=== PATIENT | male | born 1940 | race Hispanic/Latino ===

== ENCOUNTER 2018-01-17 02:06 | Observation (INO) | payer OTHER ==
[2018-01-17] MEDS ORDERED: NA CHLORIDE 0.9% 1,000 ML ONE (03:16)
[2018-01-17] MEDS ORDERED: ONDANSETRON 4 MG/2 ML VIAL ONE (03:31)
[2018-01-17] MEDS ORDERED: FENTANYL CITR 100 MCG/2 ML ONE (03:33)
[2018-01-17 03:36] LABS: Absolute Lymphocytes (CBC) 0.8 K/uL (0.7-4.9); Absolute Monocytes 0.7 K/uL (0.1-1.3); Absolute Neutrophil 5.2 K/uL (1.8-8.0); Basophils % 0.8 % (0-1.3); Eosinophils % 3.4 % (0-4.4); Hematocrit 31.4 % (39.6-49.0); Lymphocytes % 11.9 % (15.3-44.8); MCH 29.5 pg (27.0-35.0); MPV 9.7 fL (7.6-11.3); Monocytes % 10.1 % (3.3-12.3); RBC Red Blood Cell Count 3.53 M/uL (4.33-5.43)
[2018-01-17 03:39] LABS: Protime INR 1.12
[2018-01-17 03:47] LABS: Bicarbonate 20 mEq/L (21-31); Glucose Level 152 mg/dL (65-120); Potassium 4.6 mEq/L (3.6-5.0); Sodium Level 137 mEq/L (135-145)
[2018-01-17 03:53] LABS: ALT/SGPT 23 IU/L (10-60); AST/SGOT 19 IU/L (10-42); Albumin 3.1 g/dL (3.2-5.5); Alkaline Phosphatase 86 IU/L (42-121); BUN Blood Urea Nitrogen 59 mg/dL (6-20); Bilirubin Direct < 0.1 mg/dL (0-0.2); Bilirubin Total 0.5 mg/dL (0.3-1.2); Creatine Phosphokinase 183 IU/L (22-269); Magnesium 1.8 mg/dL (1.8-2.5); Protein, Total 6.6 g/dL (6.0-8.3)
[2018-01-17 03:55] LABS: CKMB Creatine Kinase MB 6.3 ng/ml (0.3-4.0)
--- NOTE | 2018-01-17 04:39 | ER ---
Nurse's Notes [facility] Name: Jonathan Agudelo Age: 77 yrs Sex: Male : 1940 Arrival Date: 01/17/2018 Time: 02:09 Bed 19 Private MD: Vivian Moody H Diagnosis: Essential (primary) hypertension;Headache;Unspecified kidney failure;Strain of muscle, fascia and tendon at neck level;Pleural effusion in conditions classified elsewhere-bilateral Presentation: 01/17 02:45 Presenting complaint: Patient states: "The back of my neck has been hurting me since bs1 yesterday afternoon, it hurts when I turn my head to the side." Patient denies any trauma or falling. Transition of care: patient was not received from another setting of care. Onset of symptoms was January 16, 2018. Initial Sepsis Screen: Does the patient meet any 2 criteria? No. Patient's initial sepsis screen is negative. Does the patient have a suspected source of infection? No. Patient's initial sepsis screen is negative. Care prior to arrival: None. 02:45 Method Of Arrival: Ambulatory bs1 02:45 Acuity: AAMIR 3 bs1 Historical: - Allergies: 02:49 No Known Allergies; bs1 - Home Meds: 02:49 glimepiride Oral [Active]; Lisinopril Oral [Active]; bs1 - PMHx: 02:49 htn; bs1 - PSHx: 02:49 prostate sx; bs1 - Immunization history:: Adult Immunizations up to date. - Social history:: Smoking status: Patient/guardian denies using tobacco. - Family history:: not pertinent. Screenin:52 Abuse screen: Denies threats or abuse. Denies injuries from another. Nutritional bs1 screening: No deficits noted. Tuberculosis screening: No symptoms or risk factors identified. Fall Risk None identified. Assessment: 02:53 General: Appears in no apparent distress. uncomfortable, Behavior is calm, cooperative, bs1 appropriate for age. Pain: Complains of pain in right base of the skull and right occipital area and left base of the skull and left occipital area. Neuro: Level of Consciousness is awake, alert, obeys commands, Oriented to person, place, time, situation, Appropriate for age. Neuro: Reports blurred vision dizziness, weakness patient denies any trauma, or falling. Cardiovascular: Denies chest pain, Heart tones S1 S2 present Capillary refill < 3 seconds Patient's skin is warm and dry. Respiratory: Reports shortness of breath at rest on exertion Airway is patent Trachea midline Respiratory effort is even, unlabored, Respiratory pattern is regular, symmetrical. GI: No deficits noted. No signs and/or symptoms were reported involving the gastrointestinal system. : No deficits noted. No signs and/or symptoms were reported regarding the genitourinary system. EENT: No deficits noted. No signs and/or symptoms were reported regarding the EENT system. Derm: Skin is intact, Skin is pink, warm \\T\\ dry. Musculoskeletal: Circulation, motion, and sensation intact. Capillary refill < 3 seconds, Range of motion: intact in all extremities. 04:00 Reassessment: Patient appears in no apparent distress at this time. Patient and/or lp1 family updated on plan of care and expected duration. Pain level reassessed. Patient states symptoms have improved. Vital Signs: 02:45 BP 182 / 85; Pulse 78; Resp 16; Temp 97.9(O); Pulse Ox 98% on R/A; Weight 63.5 kg; bs1 Height 5 ft. 1 in. (154.94 cm); Pain 8/10; 03:30 BP 179 / 90; Pulse 77; Resp 14; Pulse Ox 95% on R/A; lp1 04:30 BP 196 / 86; Pulse 89; Resp 14; Pulse Ox 98% on R/A; lp1 05:26 BP 169 / 82; Pulse 81; Resp 17; Pulse Ox 97% on R/A; lp1 02:45 Body Mass Index 26.45 (63.50 kg, 154.94 cm) bs1 ED Course: 02:09 Patient arrived in ED. am2 02:09 Vivian Moody DO is Private Physician. am2 02:24 Zahira Hernandez, RAHUL is Primary Nurse. lp1 02:26 Luis Antonio Barrientos MD is Attending Physician. john 02:47 Triage completed. bs1 02:53 Arm band placed on placed. bs1 02:53 Patient has correct armband on for positive identification. Bed in low position. Call bs1 light in reach. Side rails up X 1. Pulse ox on. NIBP on. 03:00 EKG done, by ED staff, reviewed by Luis Antonio Barrientos MD. lp1 03:00 Inserted saline lock: 20 gauge in right forearm, using aseptic technique. Blood lp1 collected. 03:02 X-ray completed. Portable x-ray completed in exam room. Patient tolerated procedure kw well. 03:03 XRAY Chest (1 view) In Process Unspecified. EDMS 04:[address] via wheelchair. lp1 04:24 CT Head C Spine In Process Unspecified. EDMS 04:38 Kristin Malik MD is Hospitalizing Provider. john 05:22 No provider procedures requiring assistance completed. Patient admitted, IV remains in lp1 place. Administered Medications: Discontinued: NS 0.9% 1000 ml IV at 100 ml/hr continuous 03:45 Drug: NS 0.9% 1000 ml Route: IV; Rate: 100 ml/hr; Site: right forearm; lp1 05:25 Follow up: IV Intake: 150ml ; DC'd per MD order lp1 03:45 Drug: fentaNYL (PF) 25 mcg Route: IVP; Site: right forearm; lp1 04:50 Follow up: Response: Pain is decreased lp1 03:45 Drug: Zofran 4 mg Route: IVP; Site: right forearm; lp1 04:50 Follow up: Response: No adverse reaction lp1 04:49 Drug: Norvasc 10 mg Route: PO; lp1 06:05 Follow up: Response: Blood pressure is lowered lp1 06:05 Not Given (patient denies pain): fentaNYL (PF) 25 mcg IVP once lp1 Point of Care Testing: Blood Glucose: 03:48 Blood Glucose: 163 mg/dL; lp1 Ranges: Intake: 05:25 IV: 150ml; Total: 150ml. lp1 Outcome: 04:39 Decision to Hospitalize by Provider. john 05:22 Condition: stable lp1 05:22 Instructed on the need for admit. 05:42 Admitted to Tele accompanied by nurse, via wheelchair, room 407, with chart, Report lp1 called to RAHUL Vásquez 06:06 Patient left the ED. lp1 Signatures: Dispatcher [employer] Luis Antonio Walton MD MD cha Whitley, Kimberlee kw Pena, Laura, RN RN lp1 Alaina Lakhani am2 Sara Alexandra RN RN bs1 Corrections: (The following items were deleted from the chart) 02:52 01:45 BP 182 / 85; Pulse 78bpm; Resp 16bpm; Pulse Ox 98% RA; Temp 97.9F Oral; 63.5 kg; bs1 Height 5 ft. 1 in.; BMI: 26.4; Pain 8/10; bs1
--- NOTE | 2018-01-17 04:40 | EDPHYS ---
Physician Documentation [facility] Name: Jonathan Agudelo Age: 77 yrs Sex: Male : 1940 Arrival Date: 01/17/2018 Time: 02:09 Bed 19 Private MD: Vivian Moody H ED Physician Luis Antonio Barrientos HPI: 01/17 02:39 This 77 yrs old Male presents to ER via Unassigned with complaints of back of john head pain. 02:37 The patient complains of pain to the left occipital area, left base of the skull, right john occipital area and right base of the skull. The patient describes the headache as aching. Onset: The symptoms/episode began/occurred just prior to arrival. Associated signs and symptoms: The patient has no apparent associated signs or symptoms. Severity of symptoms: At its worst the pain was moderate, in the emergency department the pain is unchanged. Headache History: Denies prior headaches. The symptoms are alleviated by nothing. the symptoms are aggravated by nothing. The patient has not experienced similar symptoms in the past. Historical: - Allergies: 02:49 No Known Allergies; bs1 - Home Meds: 02:49 glimepiride Oral [Active]; Lisinopril Oral [Active]; bs1 - PMHx: 02:49 htn; bs1 - PSHx: 02:49 prostate sx; bs1 - Immunization history:: Adult Immunizations up to date. - Social history:: Smoking status: Patient/guardian denies using tobacco. - Family history:: not pertinent. ROS: 02:37 Constitutional: Negative for fever, chills, and weight loss, Eyes: Negative for injury, john pain, redness, and discharge, ENT: Negative for injury, pain, and discharge, Neck: Negative for injury, pain, and swelling, Cardiovascular: Negative for chest pain, palpitations, and edema, Respiratory: Negative for shortness of breath, cough, wheezing, and pleuritic chest pain, Abdomen/GI: Negative for abdominal pain, nausea, vomiting, diarrhea, and constipation, Back: Negative for injury and pain, : Negative for injury, bleeding, discharge, and swelling, MS/Extremity: Negative for injury and deformity, Skin: Negative for injury, rash, and discoloration, Psych: Negative for depression, anxiety, suicide ideation, homicidal ideation, and hallucinations, Allergy/Immunology: Negative for hives, rash, and allergies, Endocrine: Negative for neck swelling, polydipsia, polyuria, polyphagia, and marked weight changes, Hematologic/Lymphatic: Negative for swollen nodes, abnormal bleeding, and unusual bruising. 02:37 Neuro: Positive for headache. Exam: 02:37 Constitutional: This is a well developed, well nourished patient who is awake, alert, john and in no acute distress. Head/Face: Normocephalic, atraumatic. Eyes: Pupils equal round and reactive to light, extra-ocular motions intact. Lids and lashes normal. Conjunctiva and sclera are non-icteric and not injected. Cornea within normal limits. Periorbital areas with no swelling, redness, or edema. ENT: Nares patent. No nasal discharge, no septal abnormalities noted. Tympanic membranes are normal and external auditory canals are clear. Oropharynx with no redness, swelling, or masses, exudates, or evidence of obstruction, uvula midline. Mucous membranes moist. Neck: Trachea midline, no thyromegaly or masses palpated, and no cervical lymphadenopathy. Supple, full range of motion without nuchal rigidity, or vertebral point tenderness. No Meningismus. Chest/axilla: Normal chest wall appearance and motion. Nontender with no deformity. No lesions are appreciated. Cardiovascular: Regular rate and rhythm with a normal S1 and S2. No gallops, murmurs, or rubs. Normal PMI, no JVD. No pulse deficits. Respiratory: Lungs have equal breath sounds bilaterally, clear to auscultation and percussion. No rales, rhonchi or wheezes noted. No increased work of breathing, no retractions or nasal flaring. Abdomen/GI: Soft, non-tender, with normal bowel sounds. No distension or tympany. No guarding or rebound. No evidence of tenderness throughout. Back: No spinal tenderness. No costovertebral tenderness. Full range of motion. Male : Normal genitalia with no discharge or lesions. Skin: Warm, dry with normal turgor. Normal color with no rashes, no lesions, and no evidence of cellulitis. MS/ Extremity: Pulses equal, no cyanosis. Neurovascular intact. Full, normal range of motion. Neuro: Awake and alert, GCS 15, oriented to person, place, time, and situation. Cranial nerves II-XII grossly intact. Motor strength 5/5 in all extremities. Sensory grossly intact. Cerebellar exam normal. Normal gait. Psych: Awake, alert, with orientation to person, place and time. Behavior, mood, and affect are within normal limits. 02:37 Neck: ROM/movement: is normal, no acute changes, Meningeal signs: are not present, Kernig's sign is negative, Brudzinski's sign is negative. Vital Signs: 02:45 BP 182 / 85; Pulse 78; Resp 16; Temp 97.9(O); Pulse Ox 98% on R/A; Weight 63.5 kg; bs1 Height 5 ft. 1 in. (154.94 cm); Pain 8/10; 03:30 BP 179 / 90; Pulse 77; Resp 14; Pulse Ox 95% on R/A; lp1 04:30 BP 196 / 86; Pulse 89; Resp 14; Pulse Ox 98% on R/A; lp1 05:26 BP 169 / 82; Pulse 81; Resp 17; Pulse Ox 97% on R/A; lp1 02:45 Body Mass Index 26.45 (63.50 kg, 154.94 cm) bs1 MDM: 02:26 Patient medically screened. [facility] 02:40 Data reviewed: vital signs, nurses notes, lab test result(s), EKG, radiologic studies, [facility] CT scan, plain films. 01/17 02:36 Order name: Basic Metabolic Panel; Complete Time: 04:30 [facility] 01/17 02:36 Order name: BNP; Complete Time: 04:30 [facility] 01/17 02:36 Order name: CBC with Diff; Complete Time: 04:30 [facility] 01/17 02:36 Order name: Ckmb; Complete Time: 04:30 [facility] 01/17 02:36 Order name: CPK; Complete Time: 04:30 [facility] 01/17 02:36 Order name: LFT's; Complete Time: 04:30 [facility] 01/17 02:36 Order name: Magnesium; Complete Time: 04:30 [facility] 01/17 02:36 Order name: PT-INR; Complete Time: 04:30 [facility] 01/17 02:36 Order name: Ptt, Activated; Complete Time: 04:30 [facility] 01/17 02:36 Order name: Troponin (emerg Dept Use Only); Complete Time: 04:30 [facility] 01/17 02:36 Order name: XRAY Chest (1 view) [facility] 01/17 02:36 Order name: CT Head C Spine [facility] 01/17 05:28 Order name: Urine Dipstick--Ancillary (enter results) [facility] 01/17 05:55 Order name: Urine Dipstick-Ancillary EDMS 01/17 02:36 Order name: EKG; Complete Time: 02:37 [facility] 01/17 02:36 Order name: Cardiac monitoring; Complete Time: 03:45 [facility] 01/17 02:36 Order name: EKG - Nurse/Tech; Complete Time: 03:45 [facility] 01/17 02:36 Order name: IV Saline Lock; Complete Time: 03:45 [facility] 01/17 02:36 Order name: Labs collected and sent; Complete Time: 03:46 [facility] 01/17 02:36 Order name: O2 Per Protocol; Complete Time: 03:46 [facility] 01/17 02:36 Order name: O2 Sat Monitoring; Complete Time: 03:46 [facility] 01/17 02:36 Order name: Urine Dipstick-Ancillary (obtain specimen); Complete Time: 05:20 [facility] 01/17 04:37 Order name: CT Stone Protocol [facility] 01/17 04:42 Order name: CONS Physician Consult EDMS Administered Medications: Discontinued: NS 0.9% 1000 ml IV at 100 ml/hr continuous 03:45 Drug: NS 0.9% 1000 ml Route: IV; Rate: 100 ml/hr; Site: right forearm; lp1 05:25 Follow up: IV Intake: 150ml ; DC'd per MD order lp1 03:45 Drug: fentaNYL (PF) 25 mcg Route: IVP; Site: right forearm; lp1 04:50 Follow up: Response: Pain is decreased lp1 03:45 Drug: Zofran 4 mg Route: IVP; Site: right forearm; lp1 04:50 Follow up: Response: No adverse reaction lp1 04:49 Drug: Norvasc 10 mg Route: PO; lp1 06:05 Follow up: Response: Blood pressure is lowered lp1 06:05 Not Given (patient denies pain): fentaNYL (PF) 25 mcg IVP once lp1 Point of Care Testing: Blood Glucose: 03:48 Blood Glucose: 163 mg/dL; lp1 Ranges: Critical Glucose Levels:Adult <50 mg/dl or >400 mg/dl <40 mg/dl or >180 mg/dl Disposition: 01/17/18 04:39 Hospitalization ordered by Kristin Malik for Observation. Preliminary diagnosis are Essential (primary) hypertension, Headache, Unspecified kidney failure, Strain of muscle, fascia and tendon at neck level, Pleural effusion in conditions classified elsewhere - bilateral. - Bed requested for Telemetry/MedSurg (observation). - Status is Observation. lp1 - Condition is Stable. - Problem is new. - Symptoms have improved. UTI on Admission? No Signatures: Dispatcher [employer] [facility] Luis Antonio Barrientos MD MD cha Pena, Laura, RN RN lp1 Deyanira Agudelo RN RN cg Sara Alexandra RN RN bs1 Corrections: (The following items were deleted from the chart) 04:19 03:09 Head angio ordered. [facility] 04:59 04:39 Hospitalization Ordered by Kristin Malik MD for Observation. Preliminary cg diagnosis is Essential (primary) hypertension; Headache; Unspecified kidney failure; Strain of muscle, fascia and tendon at neck level. Bed requested for Telemetry/MedSurg (observation). Status is Observation. Condition is Stable. Problem is new. Symptoms have improved. UTI on Admission? No. john 05:28 04:59 01/17/2018 04:39 Hospitalization Ordered by Kristin Malik MD for Observation. john Preliminary diagnosis is Essential (primary) hypertension; Headache; Unspecified kidney failure; Strain of muscle, fascia and tendon at neck level. Bed requested for Telemetry/MedSurg (observation). Status is Observation. Condition is Stable. Problem is new. Symptoms have improved. UTI on Admission? No. cg 06:06 05:28 01/17/2018 04:39 Hospitalization Ordered by Kristin Malik MD for Observation. lp1 Preliminary diagnosis is Essential (primary) hypertension; Headache; Unspecified kidney failure; Strain of muscle, fascia and tendon at neck level; Pleural effusion in conditions classified elsewhere - bilateral. Bed requested for Telemetry/MedSurg (observation). Status is Observation. Condition is Stable. Problem is new. Symptoms have improved. UTI on Admission? No. john
[2018-01-17] MEDS ORDERED: AMLODIPINE 5 MG TAB ONE (04:47)
[2018-01-17] MEDS ORDERED: MORPHINE 2 MG/ML SYR IV PRN (04:51)
[2018-01-17] MEDS ORDERED: ONDANSETRON 4 MG/2 ML VIAL IV PRN (04:51)
[2018-01-17 05:55] LABS: Urine Blood 2+ (NEG); Urine Glucose TRACE (NEG); Urine Protein 3+ (NEG); Urine Specific Gravity 1.015 (1.005-1.030); Urine pH 5.5 (5.0-7.0)
[2018-01-17] MEDS: NA CHLORIDE 0.9% 1,000 ML IV SCH ×2 (06:05→18:20)
--- NOTE | 2018-01-17 06:06 | P.HP ---
Certification for Inpatient Patient admitted to: Observation With expected LOS: <2 Midnights Patient will require the following post-hospital care: None Practitioner: I am a practitioner with admitting privileges, knowledge of patient current condition, hospital course, and medical plan of care. Services: Services provided to patient in accordance with Admission requirements found in Title 42 Section 412.3 of the Code of Federal Regulations Patient History Date of Service: 01/17/18 Reason for admission: Headache; acute kidney injury History of Present Illness: Patient is a 77-year-old gentleman who comes into the hospital with a headache. Patient has a history of prostate cancer, and was treated 4 years ago with radiation. He has been doing well since. Patient has a history of diabetes, and he was found to have significantly elevated renal function. Patient was admitted to the hospital for further evaluation. Patient's urine output has been decreased. Patient is clinically doing well but renal function is very poor. Will get Nephrology to evaluate further. Patient will be admitted to the hospital for further evaluation. Allergies No Known Allergies Allergy (Unverified 01/17/18 03:08) Home Medications: Glimepiride 1 tab PO BID 01/17/18 Lisinopril [Prinivil*] 1 tab PO BID 01/17/18 - Past Medical/Surgical History -: HTN, rheumatoid arthritis; APA -: Aortic stenosis -: afib Past Surgical History: Patient denies surgical history - Family History Father Medical History: Lung disease - Social History Smoking Status: Never smoker Alcohol use: No CD- Drugs: No Review of Systems 10-point ROS is otherwise unremarkable Physical Examination - Vital Signs Temperature: 98 F Blood Pressure: 140/80 Pulse: 80 Respirations: 18 Pulse Ox (%): 96 - Physical Exam General: Alert, In no apparent distress, Oriented x3 HEENT: Atraumatic, PERRLA, Mucous membr. moist/pink, EOMI, Sclerae nonicteric Neck: Supple, 2+ carotid pulse no bruit, No LAD, Without JVD or thyroid abnormality Respiratory: Clear to auscultation bilaterally, Normal air movement Cardiovascular: Regular rate/rhythm, Normal S1 S2, No murmurs Gastrointestinal: Normal bowel sounds, Soft and benign, Non-distended, No tenderness Musculoskeletal: No clubbing, No swelling, No tenderness Integumentary: No rashes, No significant lesion Neurological: Normal gait, Normal speech, Normal strength at 5/5 x4 extr, Normal tone, Sensation intact, Cranial nerves 3-12 intact, Normal affect Lymphatics: No axilla or inguinal lymphadenopathy - Studies Laboratory Data (last 24 hrs) 01/17/18 03:10: PT 13.2 H, INR 1.12, APTT 33.8 01/17/18 03:10: WBC 7.0, Hgb 10.4 L, Hct 31.4 L, Plt Count 248 01/17/18 03:10: B-Natriuretic Peptide 1220 H 01/17/18 03:10: Sodium 137, Potassium 4.6, BUN 59 H, Creatinine 3.35 H, Glucose 152 H, Magnesium 1.8, Total Bilirubin 0.5, AST 19, ALT 23, Alkaline Phosphatase 86 Assessment & Plan - Problems (Diagnosis) (1) JANES (acute kidney injury) Current Visit: Yes Status: Acute (2) Headache Current Visit: Yes Status: Acute (3) Proteinuria Current Visit: Yes Status: Acute - Plan Plan: 1. CT of the abdomen is pending to rule out obstructive uropathy; 2. Gentle IV hydration 3. Pain control 4. May need repeat echocardiogram 5. Monitor renal function closely 6. GI and DVT prophylaxis Discharge Plan: Home Plan to discharge in: 48 Hours - Advance Directives Does patient have a Living Will: No Does patient have a Durable POA for Healthcare: No - Code Status/Comfort Care Code Status Assessed: Yes Code Status: Full Code Critical Care: No Time Spent Managing PTS Care (In Minutes): 50
[2018-01-17 06:36] VITALS: BMI 26.4
--- NOTE | 2018-01-17 06:38 | EKG ---
Test Date: 2018-01-17 Test Time: 02:59:32 Cyber Security Architect: JOCELYNN MEASUREMENT RESULTS: Intervals: Rate: 82 AR: 158 QRSD: 140 QT: 422 QTc: 493 [place]: P: 49 AR: 158 QRS: -52 T: 109 INTERPRETIVE STATEMENTS: Normal sinus rhythm Left axis deviation Left bundle branch block Abnormal ECG Compared to ECG 01/10/2008 07:58:26 Left-axis deviation now present Left bundle-branch block now present Left anterior fascicular block no longer present Electronically Signed On 01-17-18 06:37:57 CDT by Clarence Renteria
[2018-01-17] MEDS ORDERED: NA CHLORIDE 0.9% 0 ML ONE (06:45)
[2018-01-17] MEDS ORDERED: Morphine 2 MG/2 ML SYR IV PRN (07:23)
--- NOTE | 2018-01-17 08:08 | RAD REPORT ---
EXAM DESCRIPTION: CT - Stone Protocol - 01/17/2018 5:33 am CLINICAL HISTORY: Flank pain. COMPARISON: 07/06/2013, 11/10/2009 TECHNIQUE: Axial images were obtained without oral or IV contrast. Lack of contrast limits solid org an and vascular assessment. The [id number] spans the entirety of the system partially obscuring uppermost abdomen and lung bases. Coronal reformatted images were obtained and reviewed. All CT scans are performed using dose optimization technique as appropriate and may include automated exposure control or mA/KV adjustment according to patient size. FINDINGS: Small bilateral pleural effusions are present with linear atelectasis in both lung bases, greater on the left. Mild interstitial pulmonary edema is seen in the lung bases. The heart is mildly prominent. Imaged portions of the liver and spleen show no suspicious findings on non-contrast imaging. The panc reas and adrenal glands are normal. No pathologic lymphadenopathy in the abdomen or pelvis. No urinary tract stones or obstructive uropathy. 2 cm left renal cyst noted, unchanged. No bowel obstruction, free air, free fluid or abscess. Normal appendix noted.Small fat containing umb ilical hernia. Lumbar spondylosis is present, mild to moderate in severity. IMPRESSION: No urinary tract stones or obstructive uropathy. Small bilateral pleural effusions with subsegmental atelectasis suspected in both lung bases.
--- NOTE | 2018-01-17 08:09 | RAD REPORT ---
EXAM DESCRIPTION: CT - [id number] - 01/17/2018 5:35 am CLINICAL HISTORY: Trauma, head and neck injury. COMPARISON: None. TECHNIQUE: Axial 5 mm thick images of the head were obtained. Axial 2 mm thick images of the cervical spine were obtained with sagittal and coronal reconstruction images generated and reviewed. All CT scans are performed using dose optimization technique as appropriate and may include automated exposure control or mA/KV adjustment according to patient size. FINDINGS: CT HEAD WITHOUT CONTRAST: No acute hemorrhage, hydrocephalus or extra-axial collection is identified.No areas of brain edema or midline shift. The paranasal sinuses and mastoids are clear.The calvarium is intact. CT CERVICAL SPINE WITHOUT CONTRAST: No fracture or subluxation.Mild lower cervical spondylosis.No prevertebral soft tissues swelling is i dentified. Emphysematous changes noted left lung apex. IMPRESSION: No acute intracranial or cervical spine findings.
--- NOTE | 2018-01-17 08:49 | RAD REPORT ---
EXAM DESCRIPTION: RAD - Chest Single View - 01/17/2018 3:06 am CLINICAL HISTORY: Chest pain. COMPARISON: 12/11/2007 FINDINGS: Portable technique limits examination quality. Mild linear opacities in both lung bases likely representing subsegmental atelectasis. The lungs are mildly emphysematous but clear. The heart is upper limit of normal in size. No displaced fractures. IMPRESSION: Mild subsegmental atelectasis in both lung bases.
--- NOTE | 2018-01-17 11:14 | RAD REPORT ---
EXAM DESCRIPTION: US - Renal Ultrasound-Complete - 01/17/2018 10:45 am CLINICAL HISTORY: Chronic kidney disease. COMPARISON: 01/17/2018 CT FINDINGS: Both kidneys are normal in size, shape and echotexture. The right kidney measures 9.5 x 4.1 x 4.0 cm. No hydronephrosis, focal mass or perinephric fluid. The left kidney measures 10.3 x 6.0 x 4.9 cm. No hydronephrosis, focal mass or perinephric fluid. 2.3 x 2.0 cm cortical renal cyst is present. IMPRESSION: Benign left renal cyst, otherwise negative study.
[2018-01-17 12:09] LABS: UR CREAT 60.8 mg/dL
[2018-01-17 12:11] LABS: Urine Protein/Creatinine Ratio 6.58 (<0.15)
[2018-01-17] MEDS: CARVEDILOL 3.125 MG TAB PO SCH (18:00)
--- NOTE | 2018-01-17 19:06 | CON ---
Date of Consultation: 01/17/2018 Additional Consulting Physician: Dr. Mccloud. Reason For Consultation: Elevated BUN and creatinine, fluid management. 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 The patient not aware about any kidney disease, the patient had prostate h ypertrophy, status post TURP/prostate cancer. The patient, according to the family, came with severe headache with nausea without any vomiting. The patient had poor intake and the patient started havi ng leg swelling with decrease in his urine output. For that reason, he reported to the emergency alley [facility] In the emergency room found to have elevated BUN and creatinine. For that reason, we have been c onsulted. The patient denied taking any nonsteroidal. No recent change in his medication even thoug h the patient being on NILDA inhibitor. The patient denied any previous lab workup for his kidney func tion. The patient denied taking any nonsteroidal. No IV contrast. No antibiotic. Reviewing the record for the patient, the latest lab that we have it back in 2012, at that time, crea tinine 1.1 with GFR of above 60. Currently on this admission, creatinine 3.3 with GFR of 18. The sumaya alvarenga had an elevation in his BNP. Past Medical History: Include: 1.Diabetes since 2004 complicated with neuropathy and retinopathy. 2.Hypertension. 3.CVA. 4.Prostate cancer, status post surgery. Home Medications: Include glimepiride and lisinopril. Past Surgical History: Include prostate surgery. Family History: Positive for hypertension and lung disease. Social History: Denies smoking, denies drinking, denies drug abuse. Review of Systems: Head and Neck: Had headache. GI: Decreased intake. : No polyuria. No dysuria. Has decreased urine output. LANDSCAPE ARCHITECT: Not applicable. Respiratory: No shortness of breath. Cardiovascular: Has leg swelling. Endocrine: No polydipsia. Skin: No rash. Neuro: Has headache. Musculoskeletal: No joint pain. Physical Examination: Vital Signs: When I saw the patient, blood pressure on admission it was 182/85, currently blood pres sure 159/73, pulse of 84 and afebrile. Chest: Clear to auscultation. Heart: S1, S2. Regular. Systolic murmur. Abdomen: Soft and nontender. Extremity: Trace edema. Vascular: No carotid bruit. No renal bruit. Laboratory Data: Sodium 137, potassium 4.6, bicarb 20, chloride 111, BUN 59, creatinine 3.3, GFR of 18, calcium 8.5, magnesium 1.8. BNP 1220. WBC 7, H and H 10.4/31.4, and platelets 248. Urinalysis; +2 blood, protein creatinine of 7. Renal ultrasound has been done today showing 9.5 x 10.3 renal cyst on the left 2.3 single. Current Medications: In the hospital include: 1.Tylenol. 2.Zofran. 3.IV fluids at 75 per hour. Assessment And Plan: 1.Acute kidney injury on chronic kidney disease, mostly progression of disease, nonoliguric, normal volume to the dry side currently. Normal-size kidney with nephrotic range of proteinuria with anemia , disease needs to be ruled out even though that I doubt it is mostly secondary to diabete s. 2.Hypertension uncontrolled. I am going to go ahead and place the patient on Norvasc and carvedilol . We will discontinue NILDA inhibitor given the acute kidney injury or the worsening kidney function. 3.Proteinuria. Nephrotic range of proteinuria. Mostly it is secondary to diabetes but given the un known baseline and the presence of the anemia I am going to go ahead and send for full workup for the patient and we will follow up. I had long discussion with the patient in the presence of the r egarding the etiology of his disease with the help of the well shooter. The patient verbalized underst anding. 4.Headache mostly secondary to uncontrolled hypertension currently blood pressure better controlled. We will follow up. 5.Diabetes as by primary. Thank you, Dr. Mccloud for allowing us to participate in the care of your patient. KASSIE Voice ID: [id number] Report ID: [id number]
[2018-01-18 01:30] VITALS: O2SAT 95
[2018-01-18 04:11] LABS: Absolute Lymphocytes (CBC) 0.8 K/uL (0.7-4.9); Absolute Monocytes 0.6 K/uL (0.1-1.3); Eosinophils % 3.7 % (0-4.4); Hematocrit 27.2 % (39.6-49.0); Lymphocytes % 13.4 % (15.3-44.8); MCV 88.4 fL (80-100); MPV 9.5 fL (7.6-11.3); Monocytes % 11.3 % (3.3-12.3); RBC Red Blood Cell Count 3.08 M/uL (4.33-5.43)
[2018-01-18 05:03] LABS: ALT/SGPT 19 IU/L (10-60); AST/SGOT 14 IU/L (10-42); Albumin 2.8 g/dL (3.2-5.5); Alkaline Phosphatase 69 IU/L (42-121); BUN Blood Urea Nitrogen 53 mg/dL (6-20); Bicarbonate 20 mEq/L (21-31); Bilirubin Total 0.7 mg/dL (0.3-1.2); Ferritin 83.5 ng/ml (23.9-336.2); Glucose Level 101 mg/dL (65-120); Potassium 4.5 mEq/L (3.6-5.0); Protein, Total 5.6 g/dL (6.0-8.3); Sodium Level 142 mEq/L (135-145); Thyroid Stimulating Hormone 1.49 uIU/mL (0.34-5.60); Transferrin 184 mg/dL (180-329)
[2018-01-18 05:04] LABS: Folic Acid, (Folate) > 22.3 ng/ml (>5.21)
[2018-01-18] MEDS: CARVEDILOL 3.125 MG TAB PO SCH (05:20)
[2018-01-18] MEDS ORDERED: AMLODIPINE 10 MG TAB PO SCH (09:00)
[2018-01-18] MEDS: NA CHLORIDE 0.9% 1,000 ML IV SCH (09:27)
[2018-01-18] MEDS: ACETAMINOPHEN 500 MG TAB PO PRN ×2 (09:27)
[2018-01-18] MEDS ORDERED: CARVEDILOL 3.125 MG TAB PO ONE (13:10)
[2018-01-18] MEDS ORDERED: SOD FERRIC GLUC COMPLX/SUCROSE 250 MG in NA CHLORIDE 0.9% 250 ML IV ONE (14:00)
--- NOTE | 2018-01-18 14:07 | PN ---
Date of Progress Note: 01/18/2018 Subjective: The patient was admitted with elevated BUN and creatinine, shortness of breath. Workup show uncontrolled blood pressure. Physical Examination: Vital Signs: When I saw the patient, blood pressure 177/79, pulse of 95, afebrile. Over the night, the patient had good urine output. Chest: Clear to auscultation. Heart: S1, S2. Regular. Abdomen: Soft, nontender. Extremities: No edema. Laboratory Data: H and H 9.2/27.2. Sodium 142, potassium 4.5, bicarb 20, BUN 53, creatinine 3.4, GF R of 18, calcium 8.4, phosphorus 4, TSAT of 27 with ferritin of 83. SPEP still pending. UPEP is sti ll pending. TSH 1.4, PTH 185, protein creatinine of 6. Serology still pending. Renal ultrasound showing normal size kidney 9.5 x 10.3 with left renal cyst 2.3 cm. Medications: Current medications the patient on its include: 1.Norvasc 10. 2.Carvedilol 3.125. 3.Zofran. 4.Morphine. Assessment And Plan: 1.Chronic kidney disease, stage 4, slow progression, with nephrotic range proteinuria and normal siz e kidney mostly secondary to progression of diabetes, nephropathy. Serology still pending. The cruz ent has no uremia, no hyperkalemia. I am going to go ahead and discontinue IV fluid. The patient is going to be cleared from the renal standpoint to discharge planning, follow up in the office in 2-3 weeks with chemistry. 2.Hypertension. I am going to go ahead and increase carvedilol to 6.25. 3.Nephrotic range of proteinuria. Workup pending. We will follow up as outpatient. Mostly seconda ry to diabetes. 4.Iron deficiency anemia. I am going to start the patient on IV iron and we will follow up. 5.Secondary hyperparathyroidism. No need for calcitriol for the time being. Case discussed with Dr Stefani Mccloud, agreed on the plan. KASSIE Voice ID: [id number] Report ID: [id number]
--- NOTE | 2018-01-18 14:15 | P.SSS ---
Patient History Date of Service: 01/18/18 Primary Care Provider: Dr Moody Reason for admission: Headache; acute kidney injury Allergies No Known Allergies Allergy (Unverified 01/17/18 03:08) Home Medications: Glimepiride 1 tab PO BID 01/17/18 Amlodipine [Norvasc*] 10 mg PO DAILY #30 tab 01/18/18 Carvedilol [Coreg] 6.25 mg PO BID #60 tab 01/18/18 - Past Medical/Surgical History Has patient received pneumonia vaccine in the past: Yes Diabetic: No -: HTN, rheumatoid arthritis; APA -: Aortic stenosis -: afib -: prostate surgery - Family History Father -: Lung disease - Social History Smoking Status: Never smoker Alcohol use: No CD- Drugs: No Caffeine use: Yes Place of Residence: Home Review of Systems General: As per HPI Physical Examination - Vital Signs Temperature: 97.2 F Blood Pressure: 177/79 Pulse: 95 Respirations: 20 Pulse Ox (%): 96 - Physical Exam General: Alert, In no apparent distress HEENT: Atraumatic, PERRLA, Mucous membr. moist/pink, EOMI, Sclerae nonicteric Neck: Supple, 2+ carotid pulse no bruit, No LAD, Without JVD or thyroid abnormality Respiratory: Clear to auscultation bilaterally, Normal air movement Cardiovascular: Regular rate/rhythm, Normal S1 S2 Gastrointestinal: Normal bowel sounds, No tenderness Musculoskeletal: No tenderness Integumentary: No rashes Neurological: Normal gait, Normal speech, Normal strength at 5/5 x4 extr, Normal tone, Normal affect Lymphatics: No axilla or inguinal lymphadenopathy - Diagnosis (Problem(s)) (1) JANES (acute kidney injury) Onset Date: 01/17/18 Current Visit: Yes Status: Chronic (2) Proteinuria Onset Date: 01/17/18 Current Visit: Yes Status: Chronic Qualifiers: Proteinuria type: persistent Qualified Code(s): R80.1 - Persistent proteinuria, unspecified Treatment Summary: For all during the hospital stay patient remained stable The patient was initially admitted to the hospital for elevated BUN and creatinine most likely secondary to acute versus chronic kidney injury. Patient was initially kept on IV fluids and nephrology was consulted. Nephrology had serology drawn along with other lab work done here in the hospital. Patient was found to have chronic kidney disease stage 4 due to worsening of diabetes and hypertension. At that point nephrology recommended the patient be discharged home for outpatient follow up. Patient did not have any hyperkalemia for hyperphosphatemia on the lab work. I am work was done which showed iron deficiency anemia and most likely secondary to anemia of chronic disease. Patient received IV iron here in the hospital and then was discharged home under stable condition. Patient was asked to follow up with primary care doctor and nephrology. Patient's lisinopril was discontinued during his hospitalization and patient was started on amlodipine and Coreg here in the hospital. Patient was given prescription for Coreg and amlodipine and then was discharged home under stable condition. - Disposition Disposition: ROUTINE DISCHARGE Condition: GOOD Patient Discharge Instructions: Please f/u with Dr Mesa in 1 week post discharge. New medication. Norvasc and Coreg daily. You are diagnosed with CKD stage 3 and will be needing to f/u with PCP and Dr Ashraf. Diet: Regular Activity: Ad jose elias
[2018-01-18] MEDS ORDERED: CARVEDILOL 6.25 MG TAB PO SCH (18:00)
[2018-01-18 18:18] VITALS: BP 132/61; TEMP 97.4
[2018-01-19] MEDS ORDERED: SOD FERRIC GLUC COMPLX/SUCROSE 250 MG in NA CHLORIDE 0.9% 250 ML IV ONE (12:50)
[2018-01-20 10:29] LABS: P-ANCA Anti-Myeloperoxidase Ab <1.0 AI (<1.0)
[2018-01-20 13:16] LABS: HBsAG Nonreactive (Nonreactive)
[2018-01-20 17:13] LABS: HIV 1/2 Antibody Diff Not indicated.; HIV AG/AB 4TH GEN Non-reactive (Non-reactive)
[2018-01-20 22:01] LABS: Albumin, (SPE) 2.6 g/dL (3.8-4.8); Alpha-1-Globulins 0.4 g/dL (0.2-0.3); Alpha-2-Globulins 0.9 g/dL (0.5-0.9); Gamma Globulins 0.6 g/dL (0.8-1.7); INTERPRETATION REPORT
== END 2018-01-18 17:08 | disposition home or self-care (01) ==
LOC: ER 02:06 → ERHOLD 04:44 → 4TH 05:23
PROVIDERS: ADMIT Hospitalist; ATTEND Hospitalist
DX: N17.9 Acute kidney failure, unspecified (principal); I12.9 Hypertensive chronic kidney disease with stage 1 through stage 4 chronic kidney disease, or unspecified chronic kidney disease; E11.22 Type 2 diabetes mellitus with diabetic chronic kidney disease; N18.4 Chronic kidney disease, stage 4 (severe); N25.81 Secondary hyperparathyroidism of renal origin; D50.9 Iron deficiency anemia, unspecified; R80.9 Proteinuria, unspecified; Z85.46 Personal history of malignant neoplasm of prostate; Z86.73 Personal history of transient ischemic attack (TIA), and cerebral infarction without residual deficits
CPT/HCPCS: 36415 ×2; 70450; 71045; 72125; 74176; 76377; 76770; 80048; 80053; 80076; 81003; 82550; 82553 ×2; 82570; 82607; 82728; 82746; 82962; 83520; 83540; 83735; 83880; 83970; 84100; 84156; 84165; 84443; 84466; 84484; 85025 ×2; 85044; 85610; 85730; 86021 ×2; 86038; 86160 ×2; 86225; 86317; 86704; 86706; 87340; 87389; 93005; 96374; 96375; 99285; G0378 ×2; J2405; J2916; J3010; J7030 ×4; J2270

== ENCOUNTER 2018-01-28 14:52 | Inpatient (IN) | payer OTHER ==
[2018-01-28 15:41] LABS: Absolute Lymphocytes (CBC) 0.6 K/uL (0.7-4.9); Absolute Monocytes 0.6 K/uL (0.1-1.3); Absolute Neutrophil 6.5 K/uL (1.8-8.0); Basophils % 0.8 % (0-1.3); Eosinophils % 2.5 % (0-4.4); Hematocrit 29.9 % (39.6-49.0); Lymphocytes % 7.7 % (15.3-44.8); MCH 29.9 pg (27.0-35.0); MCV 87.8 fL (80-100); MPV 10.1 fL (7.6-11.3); Monocytes % 7.2 % (3.3-12.3); RBC Red Blood Cell Count 3.41 M/uL (4.33-5.43)
[2018-01-28 15:54] LABS: Protime INR 1.11
[2018-01-28 16:02] LABS: Potassium 5.8 mEq/L (3.6-5.0)
[2018-01-28 16:08] LABS: Albumin 3.3 g/dL (3.2-5.5); Bilirubin Direct 0.1 mg/dL (0-0.2); Bilirubin Total 0.6 mg/dL (0.3-1.2); CKMB Creatine Kinase MB 8.9 ng/ml (0.3-4.0); Magnesium 1.7 mg/dL (1.8-2.5); Protein, Total 6.4 g/dL (6.0-8.3)
[2018-01-28 16:20] LABS: Urine Blood 2+ (NEG); Urine Glucose TRACE (NEG); Urine Protein 3+ (NEG); Urine pH 5.5 (5.0-7.0)
[2018-01-28] MEDS ORDERED: INSULIN -REGULAR HUMAN 50 UNIT/0.5 ML ML ONE (16:49)
[2018-01-28] MEDS ORDERED: ALBUTEROL 2.5 MG/3 ML NEB SOL ONE (16:49)
[2018-01-28] MEDS ORDERED: FUROSEMIDE 40 MG/4 ML VIAL ONE ×2 (16:50→17:52)
[2018-01-28] MEDS ORDERED: Magnesium Sulfate 2gm IVPB 2 G/50 ML BAG IV ONE (16:50)
[2018-01-28] MEDS ORDERED: SOD POLYSTYREN SUL 15 GM/60 ML UCUP ONE (16:50)
[2018-01-28] MEDS ORDERED: D50W 25 GM/50 ML SYRINGE IV ONE ×2 (16:50→18:44)
[2018-01-28] MEDS ORDERED: CALCIUM GLUCONATE 1gm/100 ML NS (4.65 mEq/100mL) IV ONE ×2 (17:00)
[2018-01-28] MEDS: ENOXAPARIN 30 MG/0.3 ML SQ SCH (17:00)
[2018-01-28] MEDS ORDERED: ONDANSETRON 4 MG/2 ML VIAL IV PRN (17:07)
[2018-01-28] MEDS ORDERED: ACETAMINOPHEN 500 MG TAB PO PRN (17:07)
--- NOTE | 2018-01-28 17:13 | EDPHYS ---
Physician Documentation [facility] Name: Jonathan Agudelo Age: 77 yrs Sex: Male : 1940 Arrival Date: 01/28/2018 Time: 14:56 Bed 20 Private MD: ED Physician Olivier Mirza HPI: 01/28 15:25 This 77 yrs old Male presents to ER via Wheelchair with complaints of cp Shortness Of Breath, Weakness. 15:25 The patient has shortness of breath with light activity. Onset: The symptoms/episode cp began/occurred 1 week(s) ago. Duration: The symptoms are continuous, and are steadily getting worse. Historical: - Allergies: 15:13 No Known Allergies; la1 - Home Meds: 16:14 amlodipine 10 mg tab 1 tab once daily [Active]; carvedilol 6.25 mg oral tab 1 tab 2 ch times per day [Active]; 17:03 Bentyl 20 mg Oral tab 3 times per day [Active]; Lomotil 2.5-0.025 mg oral tab 4 times aa5 per day for Diarrhea [Active]; glimepiride 4 mg Oral tab BID [Active]; metformin 1,000 mg oral tab 2 times per day [Active]; - PMHx: 15:13 HTN; Diabetes - NIDDM; la1 16:47 Prostate cancer; CVA; Vision problem; aa5 - PSHx: 16:47 Prostate removed; aa5 - Immunization history:: Adult Immunizations up to date. - Social history:: Smoking status: Patient/guardian denies using tobacco. ROS: 15:30 Constitutional: Negative for body aches, chills, fever, poor PO intake. cp 15:30 Eyes: Negative for injury, pain, redness, and discharge. cp 15:30 ENT: Negative for drainage from ear(s), ear pain, sore throat, difficulty swallowing, difficulty handling secretions. 15:30 Cardiovascular: Positive for edema, Negative for chest pain, palpitations. 15:30 Respiratory: Positive for shortness of breath, on exertion. Negative for cough, wheezing. 15:30 Abdomen/GI: Positive for abdominal pain, diarrhea, Negative for vomiting, constipation, anorexia, black/tarry stool, rectal bleeding. 15:30 Back: Negative for pain at rest, pain with movement, radiated pain. 15:30 : Positive for urinary frequency. 15:30 Skin: Negative for cellulitis, diaphoresis, rash. 15:30 Neuro: Positive for general weakness, Negative for altered mental status, dizziness, headache, syncope, near syncope. 15:30 All other systems are negative. Exam: 15:35 ECG was reviewed by the Attending Physician. cp 15:38 Constitutional: The patient appears in no acute distress, alert, awake, cp non-diaphoretic, non-toxic, well developed, well nourished. 15:38 Head/Face: Normocephalic, atraumatic. Eyes: Pupils equal round and reactive to light, cp extra-ocular motions intact. Lids and lashes normal. Conjunctiva and sclera are non-icteric and not injected. Cornea within normal limits. Periorbital areas with no swelling, redness, or edema. ENT: Nares patent. No nasal discharge, no septal abnormalities noted. Tympanic membranes are normal and external auditory canals are clear. Oropharynx with no redness, swelling, or masses, exudates, or evidence of obstruction, uvula midline. Mucous membranes moist. Neck: Trachea midline, no thyromegaly or masses palpated, and no cervical lymphadenopathy. Supple, full range of motion without nuchal rigidity, or vertebral point tenderness. No Meningismus. Chest/axilla: Normal chest wall appearance and motion. Nontender with no deformity. No lesions are appreciated. 15:38 Cardiovascular: Rate: normal, Rhythm: regular, Edema: 2+ edema to level of left midcalf, left ankle, right midcalf and right ankle, JVD: is not appreciated. 15:38 Respiratory: the patient does not display signs of respiratory distress, Respirations: normal, no use of accessory muscles, no retractions, no splinting, no tachypnea, labored breathing, is not present, Breath sounds: decreased breath sounds, that are mild, are located in both bases, wheezing: is not appreciated. 15:38 Abdomen/GI: Inspection: abdomen appears normal, Bowel sounds: active, all quadrants, Palpation: abdomen is soft and non-tender, in all quadrants, rebound tenderness, is not appreciated, voluntary guarding, is not appreciated, involuntary guarding, is not appreciated. 15:38 Back: pain, is absent, ROM is normal. 15:38 Skin: cellulitis, is not appreciated, no rash present. 15:38 Neuro: Orientation: to person, place \T\ time. Mentation: lucid, able to follow commands, Cerebellar function: is grossly normal, Motor: moves all fours, general weakness w/o focal deficits, Sensation: no obvious gross deficits, Gait: is steady. Vital Signs: 15:13 BP 163 / 63; Pulse 69; Resp 19; Temp 98.6(TE); Pulse Ox 96% on R/A; Weight 69.85 kg; la1 15:43 BP 145 / 71; Pulse 65; Resp 22; Pulse Ox 95% on R/A; Pain 0/10; ch 17:05 BP 173 / 66; Pulse 71; Resp 18; Temp 97.8; Pulse Ox 96% on R/A; Pain 0/10; ch 17:24 BP 151 / 60; Pulse 70; Resp 22; Pulse Ox 96% on R/A; Pain 0/10; ch 18:02 BP 144 / 58; Pulse 76; Resp 22; Temp 98.2; Pulse Ox 94% on R/A; Pain 0/10; ch 19:44 BP 158 / 66; Pulse 82; Resp 18; Temp 97.8(O); Pulse Ox 96% on R/A; Pain 0/10; ao MDM: 15:16 Patient medically screened. 16:00 Differential diagnosis: CHF exacerbation, Chronic Obstructive Pulmonary Disease cp Myocardial Infarction pneumonia, Pneumothorax pulmonary edema, Pulmonary Embolism Unstable Angina. 16:24 Physician consultation: Rona Moreno MD was contacted at 16:24, regarding admission, to the telemetry unit. patient's condition, and will see patient in ED, shortly. 16:45 Data reviewed: vital signs, nurses notes, old medical records, lab test result(s), EKG, cp radiologic studies, plain films. 16:45 Test interpretation: by ED physician or midlevel provider: ECG, plain radiologic cp studies. 17:02 Physician consultation: Sherrell Ashraf MD was called at 17:02, was contacted at 17:02, regarding consult, patient's condition, wants patient to be given another 40 lasix IV. 01/28 15:24 Order name: Basic Metabolic Panel; Complete Time: 16:14 01/28 16:14 Interpretation: Abnormal: GLUC 246; K 5.8; CO2 17; BUN 73; CRE 3.73; GFR 16. cp 01/28 15:24 Order name: BNP; Complete Time: 16:43 cp 01/28 16:43 Interpretation: Abnormal: BNP 1635. cp 01/28 15:24 Order name: CBC with Diff; Complete Time: 15:54 cp 01/28 15:54 Interpretation: Normal except: WBC 8.0; RBC 3.41; HGB 10.2; HCT 29.9; NEVAEH% 81.8; LYM% cp 7.7; LYMA 0.6. 01/28 15:24 Order name: Ckmb; Complete Time: 16:14 cp 01/28 16:15 Interpretation: Abnormal: CKMB 8.9. cp 01/28 15:24 Order name: CPK; Complete Time: 16:14 cp 01/28 16:14 Interpretation: Abnormal: CPK 342. cp 01/28 15:24 Order name: LFT's; Complete Time: 16:14 cp 01/28 15:24 Order name: Magnesium; Complete Time: 16:14 cp 01/28 16:14 Interpretation: Abnormal: MG 1.7. cp 01/28 15:24 Order name: PT-INR; Complete Time: 16:14 cp 01/28 16:15 Interpretation: Abnormal: PT 13.1. cp 01/28 15:24 Order name: Ptt, Activated; Complete Time: 16:14 cp 01/28 15:24 Order name: Troponin (emerg Dept Use Only); Complete Time: 16:07 cp 01/28 16:07 Interpretation: TROPED < 0.03; Reviewed. cp 01/28 16:12 Order name: Urine Dipstick--Ancillary (enter results); Complete Time: 16:23 ag 01/28 16:23 Interpretation: Normal except: UBLD 2+; UPROT 3+. cp 01/28 17:14 Order name: Hemoglobin A1C EDMS 01/28 17:14 Order name: CBC with Automated Diff EDMS 01/28 17:14 Order name: CBC with Automated Diff EDMS 01/28 15:24 Order name: XRAY Chest (1 view) cp 01/28 17:14 Order name: Echo with Doppler EDMS 01/28 17:14 Order name: CBC with Automated Diff EDMS 01/28 17:14 Order name: CBC with Automated Diff EDMS 01/28 17:14 Order name: Comprehensive Metabolic Panel EDMS 01/28 17:14 Order name: Comprehensive Metabolic Panel [facility] 01/28 17:14 Order name: Comprehensive Metabolic Panel [facility] 01/28 17:14 Order name: Comprehensive Metabolic Panel [facility] 01/28 17:14 Order name: Potassium [facility] 01/28 20:12 Order name: Glucose, Ancillary Testing [facility] 01/28 15:24 Order name: EKG; Complete Time: 15:25 cp 01/28 15:24 Order name: Cardiac monitoring; Complete Time: 15:42 cp 01/28 15:24 Order name: EKG - Nurse/Tech; Complete Time: 15:42 cp 01/28 15:24 Order name: IV Saline Lock; Complete Time: 15:43 cp 01/28 15:24 Order name: Labs collected and sent; Complete Time: 15:43 cp 01/28 15:24 Order name: O2 Per Protocol; Complete Time: 15:43 cp 01/28 15:24 Order name: O2 Sat Monitoring; Complete Time: 15:43 cp 01/28 15:24 Order name: Urine Dipstick-Ancillary (obtain specimen); Complete Time: 16:10 cp 01/28 17:14 Order name: CONS Physician Consult [facility] 01/28 17:14 Order name: Physical Therapy Consult [facility] 01/28 17:14 Order name: Renal [facility] 01/28 18:44 Order name: Diet Renal; Complete Time: 18:44 cp 01/28 18:54 Order name: Fingerstick Glucose; Complete Time: 18:54 ch EC:35 Rate is 68 beats/min. Rhythm is regular. HI interval is normal. QRS interval is cp prolonged at 144 msec. QT interval is normal. T waves are Inverted in leads I, aVL, aVR, V5, V6. No ST changes noted. Interpreted by me. Reviewed by me. Administered Medications: 16:40 Drug: Albuterol 2.5 mg Route: Inhalation; ch 16:40 Drug: D50W 25 ml Route: IVP; Site: right forearm; ch 17:27 Follow up: Response: No adverse reaction ch 16:40 Drug: Lasix 40 mg Route: IVP; Site: right forearm; ch 17:28 Follow up: Response: No adverse reaction ch 16:45 Drug: Insulin Regular Human 10 units {Co-Signature: rb1 (Juany Heller RN).} Route: ch IVP; Site: right forearm; 17:28 Follow up: Response: No adverse reaction ch 16:46 Drug: Magnesium Sulfate 2 grams Route: IVPB; Infused Over: 2 hrs; Site: right forearm; ch 18:20 Follow up: IV Status: Completed infusion; IV Intake: 100ml ch 17:00 Drug: Albuterol 2.5 mg Route: Inhalation; ch 17:00 Drug: Calcium Gluconate 1 grams Route: IVPB; Infused Over: 60 mins; Site: right forearm;ch 17:49 Follow up: IV Status: Completed infusion; IV Intake: 100ml ch 17:28 Drug: Kayexalate 30 grams Route: PO; ch 17:49 Follow up: Response: No adverse reaction ch 17:30 Drug: Albuterol 2.5 mg Route: Inhalation; ch 17:50 Drug: Lasix 40 mg Route: IVP; Site: right forearm; ch 18:19 Follow up: Response: No adverse reaction; Other; urine output increased, pt has ch urinated 4 times 18:45 Drug: D50W 50 ml Route: IVP; Site: right forearm; ch 20:30 Follow up: Response: Blood sugar is elevated ao Point of Care Testing: Blood Glucose: 18:53 Blood Glucose: 75 mg/dL; ch 20:09 Blood Glucose: 204 mg/dL; eb Ranges: Critical Glucose Levels:Adult <50 mg/dl or >400 mg/dl <40 mg/dl or >180 mg/dl Disposition: 01/28/18 17:12 Hospitalization ordered by Rona Moreno for Inpatient Admission. Preliminary diagnosis are Hyperkalemia, Unspecified kidney failure, Pulmonary edema, Hypomagnesemia. - Bed requested for Telemetry/MedSurg (Inpatient). - Status is Inpatient Admission. ao - Condition is Stable. - Problem is new. - Symptoms have improved. UTI on Admission? No Addendum: 02/02/2018 22:02 Co-signature as Attending Physician, Olivier Mirza MD. g s Signatures: Dispatcher [employer] Gwendolyn Devlin RN Alicia Alvarado ch, ms, Audri, RN RN aa5 Jonathan Simmons RN RN la1 Luis Antonio Egan PA PA cp Ortiz, Alex, RN RN ao Starr, Gregory, MD MD Juany Heller RN rb1 Corrections: (The following items were deleted from the chart) 01/28 16:07 16:02 Abnormal: GLUC 246. cp cp 16:14 16:07 Abnormal: GLUC 246; K 5.8; CO2 17. cp cp 16:16 15:54 Head Brain Wo Cont+CT.RAD.BRZ ordered. EDMS EDMS 16:47 16:14 PSHx: prostate sx; ch aa5 17:15 17:12 Hospitalization Ordered by Rona Moreno MD for Inpatient Admission. Preliminary cp diagnosis is Hyperkalemia; Unspecified kidney failure. Bed requested for Telemetry/MedSurg (Inpatient). Status is Inpatient Admission. Condition is Stable. Problem is new. Symptoms have improved. UTI on Admission? No. cp 18:32 17:15 01/28/2018 17:12 Hospitalization Ordered by Rona Moreno MD for Inpatient ms Admission. Preliminary diagnosis is Hyperkalemia; Unspecified kidney failure; Pulmonary edema; Hypomagnesemia. Bed requested for Telemetry/MedSurg (Inpatient). Status is Inpatient Admission. Condition is Stable. Problem is new. Symptoms have improved. UTI on Admission? No. cp 20:33 18:32 01/28/2018 17:12 Hospitalization Ordered by Rona Moreno MD for Inpatient ao Admission. Preliminary diagnosis is Hyperkalemia; Unspecified kidney failure; Pulmonary edema; Hypomagnesemia. Bed requested for Telemetry/MedSurg (Inpatient). Status is Inpatient Admission. Condition is Stable. Problem is new. Symptoms have improved. UTI on Admission? No. ms
--- NOTE | 2018-01-28 17:13 | ER ---
Nurse's Notes [facility] Name: Jonathan Agudelo Age: 77 yrs Sex: Male : 1940 Arrival Date: 01/28/2018 Time: 14:56 Bed 20 Private MD: Diagnosis: Hyperkalemia;Unspecified kidney failure;Pulmonary edema;Hypomagnesemia Presentation: 01/28 15:13 Presenting complaint: Patient states: I have been feeling fatigued, SOB, and had la1 swelling in my lower legs. Transition of care: patient was not received from another setting of care. Onset of symptoms was January 28, 2018. Initial Sepsis Screen: Does the patient meet any 2 criteria? No. Patient's initial sepsis screen is negative. Does the patient have a suspected source of infection? No. Patient's initial sepsis screen is negative. Care prior to arrival: None. 15:13 Method Of Arrival: Wheelchair la1 15:13 Acuity: AAMIR 3 la1 Triage Assessment: 20:32 Respiratory: Onset: The symptoms/episode began/occurred the patient has moderate ao shortness of breath. Respiratory: Airway is patent Respiratory effort is even, unlabored, Respiratory pattern is regular, symmetrical. Historical: - Allergies: 15:13 No Known Allergies; la1 - Home Meds: 16:14 amlodipine 10 mg tab 1 tab once daily [Active]; carvedilol 6.25 mg oral tab 1 tab 2 ch times per day [Active]; 17:03 Bentyl 20 mg Oral tab 3 times per day [Active]; Lomotil 2.5-0.025 mg oral tab 4 times aa5 per day for Diarrhea [Active]; glimepiride 4 mg Oral tab BID [Active]; metformin 1,000 mg oral tab 2 times per day [Active]; - PMHx: 15:13 HTN; Diabetes - NIDDM; la1 16:47 Prostate cancer; CVA; Vision problem; aa5 - PSHx: 16:47 Prostate removed; aa5 - Immunization history:: Adult Immunizations up to date. - Social history:: Smoking status: Patient/guardian denies using tobacco. Screenin:09 Abuse screen: Denies threats or abuse. Denies injuries from another. Nutritional ch screening: No deficits noted. Tuberculosis screening: No symptoms or risk factors identified. Fall Risk None identified. Assessment: 15:43 Pain: Denies pain. Neuro: No deficits noted. Level of Consciousness is awake, alert, obeys commands. Cardiovascular: Reports shortness of breath, Heart tones S1 S2 present Capillary refill < 3 seconds in bilateral fingers toes Clubbing of nail beds is absent Patient's skin is warm and dry. Pulses are all present. Edema is 2+ to left midcalf, left ankle, left foot, right midcalf, right ankle and right foot pitting to left leg and right leg Rhythm is sinus rhythm Chest pain is denied. Respiratory: Reports shortness of breath at rest on exertion Airway is patent Trachea midline Respiratory effort is even, unlabored, Breath sounds are diminished bilaterally. GI: Reports bloating, gaseousness, nausea, frequency of bowel movement, soft but not diarrhea. : No signs and/or symptoms were reported regarding the genitourinary system. Derm: Skin is intact, Skin is pink, warm \T\ dry. Musculoskeletal: Reports weakness in right arm, left arm, right leg and left leg. 16:09 Reassessment: Patient appears in no apparent distress at this time. No changes from previously documented assessment. Patient and/or family updated on plan of care and expected duration. Pain level reassessed. urine collected via clean catch. 17:42 Reassessment: Patient appears in no apparent distress at this time. Patient and/or family updated on plan of care and expected duration. Pain level reassessed. Patient is alert, oriented x 3, equal unlabored respirations, skin warm/dry/pink. Patient states feeling better. Patient states symptoms have improved. 18:53 Reassessment: Patient appears in no apparent distress at this time. pt is sleeping in room, very drowsy. pt bgl checked, bgl is 75. Luis Antonio notified, new orders recieved. 19:43 General: Appears in no apparent distress. comfortable, Behavior is calm, cooperative, ao appropriate for age. Pain: Denies pain. Neuro: Level of Consciousness is awake, alert, obeys commands, Oriented to person, place, time, situation, Appropriate for age Moves all extremities. Speech is normal, Facial symmetry appears normal. Cardiovascular: Capillary refill < 3 seconds in bilateral fingers toes Patient's skin is warm and dry. Respiratory: Airway is patent Respiratory effort is even, unlabored, Respiratory pattern is regular, symmetrical. GI: Abdomen is non-distended. : No signs and/or symptoms were reported regarding the genitourinary system. EENT: No signs and/or symptoms were reported regarding the EENT system. Derm: Skin is intact, Skin is pink, warm \T\ dry. Skin temperature is warm. Musculoskeletal: Circulation, motion, and sensation intact. Range of motion: intact in all extremities, Patient ambulating to the bathroom. Vital Signs: 15:13 BP 163 / 63; Pulse 69; Resp 19; Temp 98.6(TE); Pulse Ox 96% on R/A; Weight 69.85 kg; la1 15:43 BP 145 / 71; Pulse 65; Resp 22; Pulse Ox 95% on R/A; Pain 0/10; ch 17:05 BP 173 / 66; Pulse 71; Resp 18; Temp 97.8; Pulse Ox 96% on R/A; Pain 0/10; ch 17:24 BP 151 / 60; Pulse 70; Resp 22; Pulse Ox 96% on R/A; Pain 0/10; ch 18:02 BP 144 / 58; Pulse 76; Resp 22; Temp 98.2; Pulse Ox 94% on R/A; Pain 0/10; ch 19:44 BP 158 / 66; Pulse 82; Resp 18; Temp 97.8(O); Pulse Ox 96% on R/A; Pain 0/10; ao ED Course: 14:56 Patient arrived in ED. sb2 15:13 Triage completed. la1 15:14 Arm band placed on left wrist. la1 15:15 Luis Antonio Egan PA is PHCP. cp 15:15 Olivier Mirza MD is Attending Physician. cp 15:47 Inserted saline lock: 18 gauge in right forearm, using aseptic technique. Blood ch collected. 15:59 X-ray completed. Portable x-ray completed in exam room. Patient tolerated procedure la2 well. 16:02 XRAY Chest (1 view) In Process Unspecified. EDMS 16:03 Gwendolyn Rodriguez, RAHUL is Primary Nurse. ch 16:04 Notified Nurse Practitioner and/or Physician Composition Instructor of a critical lab result(s), la1 k-[id number]. 16:09 No apparent distress. Resting quietly. ch 16:09 Patient has correct armband on for positive identification. Placed in gown. Bed in low ch position. Call light in reach. Side rails up X2. Adult w/ patient. color television console monitor on. Pulse ox on. NIBP on. Warm blanket given. 16:09 No provider procedures requiring assistance completed. ch 17:11 Rona Moreno MD is Hospitalizing Provider. cp 17:24 Patient admitted, IV remains in place. ch Administered Medications: 16:40 Drug: Albuterol 2.5 mg Route: Inhalation; ch 16:40 Drug: D50W 25 ml Route: IVP; Site: right forearm; ch 17:27 Follow up: Response: No adverse reaction ch 16:40 Drug: Lasix 40 mg Route: IVP; Site: right forearm; ch 17:28 Follow up: Response: No adverse reaction ch 16:45 Drug: Insulin Regular Human 10 units {Co-Signature: rb1 (Juany Heller RN).} Route: ch IVP; Site: right forearm; 17:28 Follow up: Response: No adverse reaction ch 16:46 Drug: Magnesium Sulfate 2 grams Route: IVPB; Infused Over: 2 hrs; Site: right forearm; ch 18:20 Follow up: IV Status: Completed infusion; IV Intake: 100ml ch 17:00 Drug: Albuterol 2.5 mg Route: Inhalation; ch 17:00 Drug: Calcium Gluconate 1 grams Route: IVPB; Infused Over: 60 mins; Site: right forearm;ch 17:49 Follow up: IV Status: Completed infusion; IV Intake: 100ml ch 17:28 Drug: Kayexalate 30 grams Route: PO; ch 17:49 Follow up: Response: No adverse reaction ch 17:30 Drug: Albuterol 2.5 mg Route: Inhalation; ch 17:50 Drug: Lasix 40 mg Route: IVP; Site: right forearm; ch 18:19 Follow up: Response: No adverse reaction; Other; urine output increased, pt has ch urinated 4 times 18:45 Drug: D50W 50 ml Route: IVP; Site: right forearm; ch 20:30 Follow up: Response: Blood sugar is elevated ao Point of Care Testing: Blood Glucose: 18:53 Blood Glucose: 75 mg/dL; ch 20:09 Blood Glucose: 204 mg/dL; eb Ranges: Intake: 17:49 IV: 100ml; Total: 100ml. ch 18:20 IV: 100ml; Total: 200ml. ch Outcome: 17:12 Decision to Hospitalize by Provider. cp 20:31 Admitted to Tele accompanied by tech, room 415, with chart, Report called to RAHUL Fung ao 20:31 Condition: stable 20:31 Instructed on the need for admit. 20:33 Patient left the ED. ao Signatures: Dispatcher [employer] EDMS Gwendolny Rodriguez RN RN ch Calderon, Audri, RN RN aa5 Jonathan Simmons RN RN la1 Luis Antonio Egan PA PA cp Ortiz, Alex RN RN ao Carey Jones la2 Ilda Romano2 Brittayn Dos Santos RN rb1 Corrections: (The following items were deleted from the chart) 15:47 15:43 Cardiovascular: Reports shortness of breath, Heart tones S1 S2 present Capillary ch refill < 3 seconds in bilateral fingers toes Clubbing of nail beds is absent Patient's skin is warm and dry. Pulses are all present. Edema is absent. Rhythm is sinus rhythm Chest pain is denied 16:47 16:14 PSHx: prostate sx; ch aa5
[2018-01-28] MEDS ORDERED: D50W 25 GM/50 ML SYRINGE IV PRN (17:24)
[2018-01-28] MEDS ORDERED: GLUCAGON 1 MG/VIAL IM PRN (17:24)
--- NOTE | 2018-01-28 17:58 | HP ---
Date of Admission: 01/28/2018 Chief Complaint: Generalized weakness. Primary Care Physician: Vivian Moody DO. Consultants: Dr. Sherrell Ashraf M.D. with Nephrology. Code Status: Full. No medical power of managing attorney or living well. History Of Present Illness: The patient is a 77-year-old male with past medical history of chronic k idney disease stage 4, hypertension, hyperlipidemia, rheumatoid arthritis, aortic stenosis, atrial fi brillation, history of prostate cancer, who has been in and out of the hospital multiple times over t he past month for electrolyte abnormalities and elevated kidney function. The patient was recently d iagnosed with stage 4 kidney disease, has been seeing Dr. Ashraf as an outpatient. The patient sta thai that he has been having some generalized weakness, shortness of breath, and inability to walk as far as he usually can. Denies any cough, fever, chills known. The patient does report some nausea, but no vomiting. No chest pain. The patient does report some swelling of his lower extremities. Hi s symptoms are constant, moderate, progressively worsening in the ER, his vital signs were stable. H e was afebrile. He was saturating 96% on room air. His workup revealed elevated BNP level of 1635. His potassium was elevated at 5.2 and creatinine was 3.73. The last creatinine was 3.35, earlier th is month. The patient was treated with calcium, Kayexalate, and was referred for admission. He also received albuterol and insulin. His chest x-ray showed volume overload. Forty of IV Lasix was give n. When the patient was seen in the ER, he was awake, alert, oriented x3, in some mild distress. Past Medical History: Chronic kidney disease stage 4, hypertension, diabetes, non-insulin requiring rheumatoid arthritis, aortic stenosis, atrial fibrillation paroxysmal, and history of prostate cancer treated with radiation 4 years ago. Past Surgical History: None. Allergies: NO KNOWN DRUG ALLERGIES. Medications: List reviewed. Social History: The patient is and has never smoked or does not drink alcohol. No illicit d rug use. Family History: Father had lung disease. Review of Systems: An 11-point system reviewed, negative except as per HPI. Physical Examination: Vital Signs: Blood pressure 163/63, pulse 69, respirations 19, temperature 98.6, pulse ox 96% on alley m air. General: Awake, alert, oriented x3. Elderly male, somewhat ill-appearing, frail. HEENT: Normocephalic, atraumatic. PERRLA. EOMI. Moist mucous membranes. Oropharynx is clear. Co njunctiva is anicteric. Neck: Supple. Trachea midline. CV: S1, S2. Peripheral pulses present. Systolic murmur heard. Respiratory: Diminished breath sounds. Some crackles are heard. No wheezing or stridor. No use of accessory muscles. Gastrointestinal: Abdomen is soft, nontender, nondistended. Positive bowel sounds. No guarding or rigidity. No palpable masses. No thyromegaly. Extremities: No clubbing, cyanosis, 2+ edema bilateral lower extremities. No calf tenderness. Neuro: Cranial nerves 2 through 12 intact grossly. No focal neurological deficit. Speech is normal . Strength is 5/5 bilateral upper and lower extremities. Sensation intact to light touch. Skin: No rashes. Normal skin turgor. Psych: Mood is okay. Affect is full. Insight and judgment are good. Laboratory Data: Sodium 135, potassium 5.8, chloride 111, CO2 of 17, BUN 73, creatinine 3.73, glucos e 246, calcium 8.6, magnesium 1.6. CK 342, troponin less than 0.03. BNP 1635, albumin 3.3, INR 1.11 . UA; 2+ blood, negative nitrite, negative leukocyte, 3+ protein. WBC 8, H and H are 10.2 and 29.9, platelets 250, neutrophils 81%. Chest x-ray, no official report, however, shows volume overload pat tern. Assessment And Plan: A 77-year-old male with: 1.Ptwhy-st-orewwkf kidney injury. We will challenge with some diuretics. We will consult Dr. Igor dowling, the patient's recreational therapy aide. We will monitor creatinine. Avoid NSAIDs and nephrotoxins. 2.Pulmonary edema, likely secondary to bsvsp-to-tedxbpy kidney injury. We will obtain echocardiogra m to evaluate ejection fraction. No echocardiogram present on records. We will start on beta blocke r. Resume his Coreg dose. We will hold NILDA inhibitor at this time due to elevated creatinine. Cont inue with mild diuresis. Daily weights, fluid restriction. Strict Is and Os. 3.Essential hypertension, stable. We will resume home medications. 4.Diabetes mellitus type 2. We will place on sliding-scale insulin and monitor blood glucose levels . We will obtain hemoglobin A1c. 5.Anemia of chronic disease secondary to chronic kidney disease. Monitor H and H, currently stable. 6.Hyperkalemia. The patient has been treated with insulin, dextrose, albuterol, calcium. The patie nt has received Kayexalate and will repeat level 2 hours post. 7.Hypomagnesemia. We will replace and monitor. 8.History of prostate cancer. Treated with radiation therapy. 9.Rheumatoid arthritis. 10.Aortic stenosis. 11.Atrial fibrillation, paroxysmal, not on anticoagulation. 12.Gastrointestinal and deep venous thrombosis prophylaxis with proton-pump inhibitor and Lovenox re alxe dosed. Plan: Admit the patient to Med-Surg, place as inpatient. ROSITA Voice ID: [id number]
--- NOTE | 2018-01-28 18:29 | RAD REPORT ---
EXAM DESCRIPTION: RAD - Chest Single View - 01/28/2018 4:02 pm CLINICAL HISTORY: Shortness of breath COMPARISON: January 17 TECHNIQUE: AP portable chest image was obtained 1556 hours . FINDINGS: Normal lung volumes seen. Perihilar lung markings are prominent and this extends into each lung base. Vascular engorgement is seen compared to the prior study. Heart size is similar to compar frances. Trachea is midline. No pneumothorax. Left costophrenic angle blunting is present and stable. No gross bony abnormality seen. No acute aortic findings suspected. IMPRESSION: Mild failure/ volume overload pattern.
[2018-01-28] MEDS ORDERED: CARVEDILOL 6.25 MG TAB ONE (20:03)
[2018-01-28] MEDS ORDERED: ENOXAPARIN 30 MG/0.3 ML SQ ONE (20:04)
[2018-01-28] MEDS: CARVEDILOL 6.25 MG TAB PO SCH (20:04)
[2018-01-28] MEDS: INSULIN -REGULAR HUMAN 50 UNIT/0.5 ML ML SQ SCH (21:00)
[2018-01-28 21:33] LABS: Potassium 4.7 mEq/L (3.6-5.0)
[2018-01-29 05:43] LABS: Absolute Lymphocytes (CBC) 0.8 K/uL (0.7-4.9); Absolute Monocytes 0.6 K/uL (0.1-1.3); Absolute Neutrophil 5.4 K/uL (1.8-8.0); Eosinophils % 2.6 % (0-4.4); Hematocrit 30.2 % (39.6-49.0); MCH 29.2 pg (27.0-35.0); MCV 88.6 fL (80-100); MPV 10.8 fL (7.6-11.3); Monocytes % 8.4 % (3.3-12.3); RBC Red Blood Cell Count 3.41 M/uL (4.33-5.43)
[2018-01-29 06:06] LABS: Albumin 3.2 g/dL (3.2-5.5); Bilirubin Total 0.6 mg/dL (0.3-1.2); Potassium 4.4 mEq/L (3.6-5.0); Protein, Total 5.7 g/dL (6.0-8.3)
[2018-01-29] MEDS: INSULIN -REGULAR HUMAN 50 UNIT/0.5 ML ML SQ SCH ×4 (07:30→20:30)
[2018-01-29] MEDS ORDERED: PNEUMOCOCCAL VACCINE 0.5 ML IMVAC ONE (08:00)
[2018-01-29 08:40] VITALS: O2SAT 95
[2018-01-29] MEDS: CARVEDILOL 6.25 MG TAB PO SCH (08:47)
[2018-01-29] MEDS: GLIMEPIRIDE 2 MG TABLET PO SCH ×2 (08:47→17:42)
[2018-01-29] MEDS ORDERED: HOME MED 1 EA UNK (Glimepiride [Glimepiride] 1 TAB) PO SCH (09:00)
[2018-01-29] MEDS ORDERED: FUROSEMIDE 40 MG/4 ML VIAL IV SCH (09:00)
--- NOTE | 2018-01-29 10:41 | EKG ---
Test Date: 2018-01-28 Test Time: 15:31:22 Tail Board Worker: MEASUREMENT RESULTS: Intervals: Rate: 68 IL: 154 QRSD: 144 QT: 458 QTc: 487 [place]: P: 60 IL: 154 QRS: -48 T: 111 INTERPRETIVE STATEMENTS: Normal sinus rhythm Left axis deviation Left bundle branch block Abnormal ECG Compared to ECG 01/17/2018 02:59:32 No significant changes Electronically Signed On 01-29-18 10:40:13 CDT by Clarence Renteria
[2018-01-29] MEDS ORDERED: SOD FERRIC GLUC COMPLX/SUCROSE 250 MG in NA CHLORIDE 0.9% 250 ML IV SCH (13:00)
--- NOTE | 2018-01-29 13:14 | PN ---
Date of Progress Note: 01/29/2018 Subjective: The patient seen and examined, chart reviewed, and case discussed with RN. Language int rhett was used to communicate with the patient as he is Mexican-speaking only. He states that his shortness of breath and leg swelling is better. He did not have any acute events overnight. He is able to ambulate to the restroom and did not have any problems. Review of Systems: Negative except as above. Medications: Reviewed. Physical Examination: Vital Signs: Temperature 98, heart rate 74, blood pressure 180/77, respirations 18, O2 95% on room a ir. General: Awake, alert, oriented x3. Not in acute distress. Mildly ill-appearing elderly male, 77-y ear-old. CV: S1, S2. No murmurs. Regular rate and rhythm. Peripheral pulses present. Respiratory: Diminished breath sounds. Some crackles heard. No wheezing. No use of accessory musc les. Gastrointestinal: Abdomen is soft, nontender, nondistended. Positive bowel sounds. No guarding or rigidity. Extremities: No clubbing, cyanosis, 2+ edema bilaterally. Neurologic: Nonfocal. Laboratory Data: Sodium 138, potassium 4.4, chloride 111, CO2 19, BUN 71, creatinine 3.9, glucose 16 9. A1c pending. Calcium 9. WBC 7, H and H 10 and 30.2, platelets 285, neutrophils 77%. Assessment And Plan: A 77-year-old male with: 1.Dcsxx-bt-sycfhcq kidney injury. Continue to monitor creatinine. Avoid NSAIDs and nephrotoxins. Follow up with Nephrology input. 2.Pulmonary edema, likely secondary to above. We will obtain echocardiogram on Tuesday, not availabl e on the week-end. Continue with mild diuresis. Continue with fluid restriction. Repeat chest x-ra y in a.m. 3.Essential hypertension, uncontrolled. We will add p.r.n. medications. 4.Diabetes mellitus type 2. We will continue sliding scale insulin. Monitor blood glucose levels. 5.Anemia of chronic disease. We will continue to monitor H and H, stable. 6.Hypokalemia, corrected. We will continue to monitor. 7.Hypomagnesemia, replace and monitor. 8.History of prostate cancer, treated with radiation therapy. 9.Rheumatoid arthritis. 10.Aortic stenosis. 11.Atrial fibrillation, paroxysmal, moderate anticoagulation. 12.Gastrointestinal and deep venous thrombosis prophylaxis with PPI and Lovenox renally dosed. SA/MODJakob Voice ID: [id number] Report ID: [id number]
[2018-01-29] MEDS: CARVEDILOL 12.5 MG TAB PO SCH ×2 (14:07→20:29)
[2018-01-29] MEDS: AMLODIPINE 10 MG TAB PO SCH (14:08)
[2018-01-29] MEDS: SODIUM BICARB 325 MG TAB PO SCH ×2 (14:08→20:29)
--- NOTE | 2018-01-29 14:39 | CON ---
Date of Consultation: 01/29/2018 NEPHROLOGY CONSULTATION Reason For Consultation: Elevated BUN and creatinine, hyperkalemia, fluid over load. 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 Workup including serology, SPEP and UPEP was negative, diabetes complicated with neuropathy and retinopathy, status post multiple procedure for retinal hemorrhage, hypertension, CVA, benign pr ostate hypertrophy, status post TURP, the patient recently admitted to the hospital. At that time, h is creatinine was up to 3.3, GFR of 18. The patient was discharged after diuresis and stabilized, jamison pposed to follow up next week upon if the patient started having shortness of breath and feeling weak . For that reason, reported to the hospital and the ER found to have hyperkalemia and over volume. For that reason, the patient was admitted. Over the night, we resumed his diuresis, the patient felt better. Denied any nausea, any vomiting. The patient is not taking any diabetes medication, not co mpliant with diet because of lack of education. Past Medical History: Include: 1.Diabetes since 2004, complicated with neuropathy, retinopathy, and nephropathy. 2.Hypertension. 3.CVA. 4.Prostate cancer, status post TURP. 5.Chronic kidney disease, stage IV, nephrotic range of proteinuria. Normal sized kidney secondary t o diabetes nephropathy. Workup including SPEP, UPEP, and serology was negative. Past Surgical History: Include prostate surgery. Home Medications: Include Norvasc and carvedilol. Family History: Positive for hypertension and lung disease. Social History: Denies smoking, denies drinking, denies drug abuse. Review of Systems: Head and Neck: No red eye. No ear pain. GI: Has abdominal distention. : No polyuria. No dysuria. No hematuria. AUTOMATION DEVELOPER: Not applicable. Respiratory: Has shortness of breath. Cardiovascular: Has leg swelling. Endocrine: No polydipsia. Skin: No rash. Neuro: Generalized fatigue. Musculoskeletal: Leg pain. Physical Examination: Vital Signs: When I saw the patient, blood pressure of 180/77, pulse of 75. Afebrile. Chest: Crackles on the base. Heart: S1, S2. Regular. Abdomen: Soft, nontender. Extremities: +1 edema. Neuro: Alert and oriented x3. No focal. No tremor. Laboratory Data: WBC 7, H and H 10/30.2, platelet of 285. Sodium 138, potassium 4.4, bicarb 19, BUN 71, creatinine 3.9, GFR of 15, calcium 9. Phosphorus of 4, PTH 185. TSAT of 27, ferritin of 83. S PEP was negative. UPEP was negative. TSH 1.4. Medications: Current medications in the hospital include: 1.Carvedilol 6.25 b.i.d. 2.Lovenox. 3.Tylenol. 4.Lasix 20 b.i.d. 5.Zofran. 6.Glimepiride 4 b.i.d. Assessment And Plan: 1.Chronic kidney disease, stable on baseline on the wet side. I am going to go ahead and increase t he Lasix to 40 mg b.i.d. and we will follow up. 2.Iron deficiency anemia. We will start the patient on IV iron. 3.Acidosis non-anion gap. We will start the patient on sodium bicarb, mostly it is secondary to the renal failure. 4.Edema secondary to renal failure. We will continue diuresis. 5.Diabetes, as by Primary. Thank you Dr. Moreno for allowing us to participate in the care of your patient. KASSIE Voice ID: [id number] Report ID: [id number]
[2018-01-29] MEDS ORDERED: FUROSEMIDE 20 MG/ 2ML VIAL IV SCH (17:00)
[2018-01-29] MEDS: FUROSEMIDE 40 MG/4 ML VIAL IV SCH (17:43)
[2018-01-29] MEDS: ENOXAPARIN 30 MG/0.3 ML SQ SCH (17:45)
--- NOTE | 2018-01-29 22:06 | P.PN ---
Subjective Date of Service: 01/29/18 Physical Examination - Vital Signs Temperature: 97.0 F Blood Pressure: 168/79 Pulse: 65 Respirations: 18 Pulse Ox (%): 98 Assessment & Plan - Problems (Diagnosis) (1) CHF (congestive heart failure) Current Visit: Yes Status: Acute Qualifiers: Heart failure type: diastolic Heart failure chronicity: acute on chronic Qualified Code(s): I50.33 - Acute on chronic diastolic (congestive) heart failure (2) Chronic renal disease Current Visit: Yes Status: Chronic Qualifiers: Chronic kidney disease stage: stage 4 (severe) Qualified Code(s): N18.4 - Chronic kidney disease, stage 4 (severe) (3) Diabetes mellitus Current Visit: Yes Status: Chronic Qualifiers: Diabetes mellitus type: type 2 Diabetes mellitus correction insulin use: unspecified correction insulin use status Diabetes mellitus complication status : with kidney complications Diabetes mellitus complication detail: with chronic kidney disease Chronic kidney disease stage: stage 4 (severe) Qualified Code(s): E11.22 - Type 2 diabetes mellitus with diabetic chronic kidney disease; N18.4 - Chronic kidney disease, stage 4 (severe) (4) Anemia Current Visit: Yes Status: Chronic Qualifiers: Anemia type: iron deficiency (5) Acidosis Current Visit: Yes Status: Acute (6) Edema Current Visit: Yes Status: Acute
[2018-01-30] MEDS: FUROSEMIDE 40 MG/4 ML VIAL IV SCH ×2 (05:30→16:39)
[2018-01-30 06:12] LABS: Absolute Lymphocytes (CBC) 0.8 K/uL (0.7-4.9); Absolute Monocytes 0.8 K/uL (0.1-1.3); Absolute Neutrophil 5.6 K/uL (1.8-8.0); Basophils % 0.7 % (0-1.3); Eosinophils % 3.4 % (0-4.4); Hematocrit 32.7 % (39.6-49.0); MCH 29.6 pg (27.0-35.0); MCV 88.2 fL (80-100); MPV 9.9 fL (7.6-11.3); Monocytes % 10.4 % (3.3-12.3); RBC Red Blood Cell Count 3.71 M/uL (4.33-5.43)
[2018-01-30 06:48] VITALS: BMI 26.2
[2018-01-30 06:48] LABS: Albumin 3.2 g/dL (3.2-5.5); Bilirubin Total 0.8 mg/dL (0.3-1.2); Potassium 4.2 mEq/L (3.6-5.0); Protein, Total 5.9 g/dL (6.0-8.3)
[2018-01-30] MEDS: INSULIN -REGULAR HUMAN 50 UNIT/0.5 ML ML SQ SCH ×3 (07:30→16:39)
[2018-01-30] MEDS ORDERED: FUROSEMIDE 20 MG/ 2ML VIAL IV SCH (09:00)
[2018-01-30] MEDS: SODIUM BICARB 325 MG TAB PO SCH (09:53)
[2018-01-30] MEDS: GLIMEPIRIDE 2 MG TABLET PO SCH ×2 (09:53→17:00)
[2018-01-30] MEDS: CARVEDILOL 12.5 MG TAB PO SCH (09:53)
[2018-01-30] MEDS: AMLODIPINE 10 MG TAB PO SCH (09:54)
--- NOTE | 2018-01-30 13:01 | P.DS ---
Admission Date: 01/28/18 Discharge Date: 01/30/18 Primary Care Provider: Dr. Moody; Nephrology-Dr. Ashraf Disposition: ROUTINE DISCHARGE Discharge Condition: GOOD Reason for Admission: Pulmonary edema, hyperkalemia Consultations: Nephrology-Dr. Ashraf - Problems (1) CHF (congestive heart failure) Onset Date: 01/30/18 Current Visit: Yes Status: Acute Qualifiers: Heart failure type: diastolic Heart failure chronicity: acute on chronic Qualified Code(s): I50.33 - Acute on chronic diastolic (congestive) heart failure (2) Chronic renal disease Onset Date: 01/30/18 Current Visit: Yes Status: Chronic Qualifiers: Chronic kidney disease stage: stage 4 (severe) Qualified Code(s): N18.4 - Chronic kidney disease, stage 4 (severe) (3) Diabetes mellitus Onset Date: 01/30/18 Current Visit: Yes Status: Chronic Qualifiers: Diabetes mellitus type: type 2 Diabetes mellitus 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 use: unspecified 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 use status Diabetes mellitus complication status : with kidney complications Diabetes mellitus complication detail: with chronic kidney disease Chronic kidney disease stage: stage 4 (severe) Qualified Code(s): E11.22 - Type 2 diabetes mellitus with diabetic chronic kidney disease; N18.4 - Chronic kidney disease, stage 4 (severe) (4) Anemia Onset Date: 01/30/18 Current Visit: Yes Status: Chronic Qualifiers: Anemia type: iron deficiency (5) Acidosis Current Visit: Yes Status: Acute (6) Edema Onset Date: 01/30/18 Current Visit: Yes Status: Acute Brief History of Present Illness: 77-year-old male presented to the ER with edema and shortness of breath. Patient found to have pulmonary edema secondary to CHF and chronic renal disease. Patient also with electrolyte abnormalities. The patient was admitted for treatment. Hospital Course: Patient presented with pulmonary edema secondary to CHF and chronic renal disease. Patient also found to have electrolyte abnormalities. Medications have been adjusted. Patient will no longer take Brian inhibitors. Patient will continue with a 1500 cc per day fluid restriction. Patient will continue with Lasix 40 mg 1 pill once daily. Patient will need to monitor his weight daily. If his weight increases by more than 5 lb he is to contact his PCP for further instruction. Recommendation is to recheck lab-BMP in 1 week to monitor his progress. Patient has hypertension. Patient will continue with his medication Norvasc 10 mg daily and carvedilol 12.5 mg 1 pill twice daily. Recommendation is to maintain blood pressures less 150/80. Further adjustment can be done by his PCP. Recommendation on no further use of Brian inhibitors due to his chronic renal disease and history of hyperkalemia. Patient has diabetes. This remained stable during his stay. Patient will continue with his medication. Recommendation to maintain blood sugars less 140 fasting and less than 200. Patient presented with acute on chronic renal disease. Patient evaluated by a nephrology. No intervention needed at this time. Patient will continue with bicarb 650 mg 1 pill twice daily. Recommendation is to recheck BMP in 1 week to monitor his progress. Recommendation is for the patient follow up with nephrology in 1 week to monitor his progress. Vital Signs/Physical Exam: Temp Pulse Resp BP Pulse Ox 98.8 F 75 16 153/72 H 95 01/30/18 12:00 01/30/18 12:00 01/30/18 12:00 01/30/18 12:00 01/30/18 12:00 General: Alert, In no apparent distress, Oriented x3, Cooperative HEENT: Atraumatic Neck: Supple Respiratory: Clear to auscultation bilaterally, Normal air movement Cardiovascular: Normal pulses, Regular rate/rhythm Gastrointestinal: Normal bowel sounds, Soft and benign, Non-distended, No tenderness, No masses, No rebound, No guarding Musculoskeletal: No erythema, No tenderness, No warmth Integumentary: No erythema, No warmth, No cyanosis Neurological: Normal speech, Normal strength at 5/5 x4 extr, Normal tone, Normal affect Laboratory Data at Discharge: WBC 7.5 K/uL (4.3-10.9) 01/30/18 05:42 Hgb 11.0 g/dL (13.6-17.9) L 01/30/18 05:42 Hct 32.7 % (39.6-49.0) L 01/30/18 05:42 Plt Count 293 K/uL (152-406) 01/30/18 05:42 PT 13.1 SECONDS (9.5-12.5) H 01/28/18 15:33 INR 1.11 01/28/18 15:33 APTT 32.9 SECONDS (24.3-36.9) 01/28/18 15:33 Sodium 142 mEq/L (135-145) 01/30/18 05:42 Potassium 4.2 mEq/L (3.6-5.0) 01/30/18 05:42 BUN 65 mg/dL (6-20) H 01/30/18 05:42 Creatinine 3.92 mg/dL (0.61-1.24) H 01/30/18 05:42 Glucose 120 mg/dL (65-120) 01/30/18 05:42 Magnesium 1.7 mg/dL (1.8-2.5) L 01/28/18 15:33 Total Bilirubin 0.8 mg/dL (0.3-1.2) 01/30/18 05:42 AST 19 IU/L (10-42) 01/30/18 05:42 ALT 34 IU/L (10-60) 01/30/18 05:42 Alkaline Phosphatase 92 IU/L (42-121) 01/30/18 05:42 B-Natriuretic Peptide 1635 pg/ml (<=100) H 01/28/18 15:33 Home Medications: Glimepiride 1 tab PO BID 01/17/18 Amlodipine [Norvasc*] 10 mg PO DAILY #30 tab 01/18/18 Carvedilol [Coreg*] 6.25 mg PO BID #60 tab 01/18/18 Furosemide [Lasix] 40 mg PO DAILY #30 tab 01/30/18 Na Bicarb Tab [Sodium Bicarb 325 MG Tab*] 650 mg PO BID #120 tab 01/30/18 New Medications: Furosemide [Lasix] 40 mg PO DAILY #30 tab Na Bicarb Tab [Sodium Bicarb 325 MG Tab*] 650 mg PO BID #120 tab Patient Discharge Instructions: 1. Patient will need to follow up with his PCP in 1 week to follow up this hospitalization. 2. Patient presented with pulmonary edema secondary to CHF and chronic renal disease. Patient also found to have electrolyte abnormalities. Medications have been adjusted. Patient will no longer take Brian inhibitors. Patient will continue with a 1500 cc per day fluid restriction. Patient will continue with Lasix 40 mg 1 pill once daily. Patient will need to monitor his weight daily. If his weight increases by more than 5 lb he is to contact his PCP for further instruction. Recommendation is to recheck lab-BMP in 1 week to monitor his progress. 3. Patient has hypertension. Patient will continue with his medication Norvasc 10 mg daily and carvedilol 12.5 mg 1 pill twice daily. Recommendation is to maintain blood pressures less 150/80. Further adjustment can be done by his PCP. Recommendation on no further use of Brian inhibitors due to his chronic renal disease and history of hyperkalemia. 4. Patient has diabetes. Patient will continue with his medication. Recommendation to maintain blood sugars less 140 fasting and less than 200. 5. Patient presented with acute on chronic renal disease. Patient evaluated by a nephrology. No intervention needed at this time. Patient will continue with bicarb 650 mg 1 pill twice daily. Recommendation is to recheck BMP in 1 week to monitor his progress. Recommendation is for the patient follow up with nephrology in 1 week to monitor his progress. Diet: Renal Activity: Fall precautions Time spent managing pt's care (in minutes): 555
[2018-01-30 15:49] LABS: A1c Component 0.69 mg/dL; Hemoglobin A1c 8.6 % (4-6.0)
[2018-01-30] MEDS: ENOXAPARIN 30 MG/0.3 ML SQ SCH (16:34)
[2018-01-30 16:40] VITALS: TEMP 97.9
[2018-01-30 16:41] VITALS: BP 163/76
--- NOTE | 2018-01-30 17:07 | ECHO ---
HEIGHT: 5 ft 0 in WEIGHT: 134 lb 1.6 oz DATE OF STUDY: 01/30/[address]: Rona Moreno MD 2-DIMENSIONAL: YES M.MODE: YES DOPPLER: YES COLOR FLOW: YES TDS: PORTABLE: DEFINITY: BUBBLE STUDY: DIAGNOSIS: CONGESTIVE HEART FAILURE CARDIAC HISTORY: CATHERIZATION: NO SURGERY: NO PROSTHETIC VALVE: NO PACEMAKER: NO MEASUREMENTS (cm) DIASTOLIC (NORMALS) SYSTOLIC (NORMALS) IVSd 1.1 (0.6-1.2) LA Diam 3.6 (1.9-4.0) LVEF 51% LVIDd 4.4 (3.5-5.7) LVIDs 3.3 (2.0-3.5) %FS 26% LVPWd 1.0 (0.6-1.2) Ao Diam 3.4 (2.0-3.7) 2 DIMENSIONAL ASSESSMENT: RIGHT ATRIUM: NORMAL LEFT ATRIUM: NORMAL RIGHT VENTRICLE: NORMAL LEFT VENTRICLE: NORMAL TRICUSPID VALVE: NORMAL MITRAL VALVE: MITRAL ANNULAR CALCIFICATION PULMONIC VALVE: NORMAL AORTIC VALVE: MILD SCLEROSIS PERICARDIAL EFFUSION: NONE AORTIC ROOT: NORMAL LEFT VENTRICULAR WALL MOTION: DOPPLER/COLOR FLOW: IMPAIRED LEFT VENTRICULAR RELAXATION. NO AORTIC STENOSIS OR AORTIC REGURGITATION. COMMENTS: NORMAL LEFT VENTRICULAR EJECTION FRACTION. MITRAL ANNULAR CALCIFICATION. MILD AORTIC SCLEROSIS. NO AORTIC STENOSIS OR AORTIC REGURGITATION. TECHNOLOGIST: BRITTA MORE
--- NOTE | 2018-01-31 02:53 | PN ---
Date of Progress Note: 01/30/2018 Chief Complaint: Chronic kidney disease stage 4, fluid overload. Subjective: The patient has history of chronic kidney disease stage 4. Previous creatinine baseline was 3.3 and GFR 18. The patient has diabetes mellitus, diabetic kidney disease with proteinuria, hypertension, history of benign prostate hypertrophy. The patient came to the hospital, was complaining of generalized weakness, shortness of breath. He was found to have hyperkalemia and volume overload. Potassium level has improved. The patient is started on low-potassium diet. Review of Systems: Denies fever or chills. Physical Examination: Lungs: Clear to auscultation bilaterally. Heart: S1, S2. Abdomen: Soft, benign. Extremities: Slight edema present. Laboratory Data: Sodium 142, potassium 4.2, chloride 109, CO2 of 23, creatinine 3.92, glucose 120, calcium 9.2. Impression And Plan: 1. Chronic kidney disease stage 4. There is some prerenal azotemia. The patient developed fluid overload, was started on diuretics. 2. Hypertension. Blood pressure controlled. 3. Diabetes mellitus with renal manifestation. Continue insulin. 4. Proteinuria, moderately severe. Avoid high protein intake and consider NILDA inhibitor when patient is at baseline with renal function. 5. Fluid overload. Continue diuretic and low-sodium diet and check daily weight. Adjust diuretics to fluid balance and urine output. DENA/SCOOBY Voice ID: [id number] Report ID: [id number] MARIAH
--- NOTE | 2018-02-09 15:17 | RAD REPORT ---
EXAM DESCRIPTION: RAD - Chest Pa And Lat (2 Views) - 01/30/2018 6:37 am CLINICAL HISTORY: Shortness of breath Due to technical problems an original report could not be retrieved. Images were resubmitted for inte rpretation. COMPARISON: January 28 TECHNIQUE: PA and lateral views of the chest were obtained. FINDINGS: The lungs are normal volume. Patient has scattered fibrotic lung change. No significant in terstitial edema or infiltrative process. Heart size is upper normal. Vasculature within normal limit s. No significant failure or volume overload pattern. Small left pleural effusion is present and may be remnant from the January 28 CHF/ volume overload process. Trachea is midline. No pneumothorax. No ac kenton bony finding noted. No aortic abnormality. IMPRESSION: Minimal left pleural effusion likely remnant from the January 28 failure/ volume overload pr ocess. Currently no significant failure or volume overload. No acute lung parenchymal process.
== END 2018-01-30 17:32 | disposition home or self-care (01) | DRG 682 ==
LOC: ER 14:52 → ERHOLD 17:12 → 4TH 20:02
PROVIDERS: ADMIT Family Medicine; ATTEND Family Medicine
DX: N17.9 Acute kidney failure, unspecified (principal); I50.33 Acute on chronic diastolic (congestive) heart failure; I13.0 Hypertensive heart and chronic kidney disease with heart failure and stage 1 through stage 4 chronic kidney disease, or unspecified chronic kidney disease; N18.4 Chronic kidney disease, stage 4 (severe); E11.22 Type 2 diabetes mellitus with diabetic chronic kidney disease; E87.5 Hyperkalemia; R80.9 Proteinuria, unspecified; D50.9 Iron deficiency anemia, unspecified; N25.89 Other disorders resulting from impaired renal tubular function; E83.42 Hypomagnesemia; I35.0 Nonrheumatic aortic (valve) stenosis; I48.0 Paroxysmal atrial fibrillation; Z86.73 Personal history of transient ischemic attack (TIA), and cerebral infarction without residual deficits; Z79.01 Long term (current) use of anticoagulants; Z85.46 Personal history of malignant neoplasm of prostate
CPT/HCPCS: 36415; 71045; 71046; 80048; 80053; 80076; 81003; 82550; 82553; 82962; 83036; 83735; 83880; 84484; 85025; 85610; 85730; 93005; 93306; 94760; 96365; 96375; 97163; 99285; J0610; J1650; J2916; J3475

== ENCOUNTER 2018-03-01 01:43 | Inpatient (IN) | payer OTHER ==
[2018-03-01 02:28] LABS: Protime INR 1.08
[2018-03-01 02:32] LABS: Absolute Lymphocytes (CBC) 0.7 K/uL (0.7-4.9); Absolute Monocytes 0.7 K/uL (0.1-1.3); Absolute Neutrophil 4.3 K/uL (1.8-8.0); Eosinophils % 3.3 % (0-4.4); Hematocrit 26.7 % (39.6-49.0); Lymphocytes % 11.4 % (15.3-44.8); MCH 29.1 pg (27.0-35.0); MCV 86.2 fL (80-100); MPV 9.9 fL (7.6-11.3); Monocytes % 11.6 % (3.3-12.3)
[2018-03-01 02:50] LABS: ALT/SGPT 45 U/L (12-78); AST/SGOT 32 U/L (15-37); Alkaline Phosphatase 140 U/L (45-117); BUN Blood Urea Nitrogen 91 mg/dL (7-18); Bicarbonate 23 mmol/L (21-32); Bilirubin Direct < 0.1 mg/dL (0-0.2); Bilirubin Total 0.3 mg/dL (0.2-1.0); CKMB Creatine Kinase MB 5.3 ng/mL (0.3-3.6); Creatine Phosphokinase 294 U/L (39-308); Glucose Level 248 mg/dL (74-106); Magnesium 2.4 mg/dL (1.8-2.4); Potassium 4.3 mmol/L (3.5-5.1); Protein, Total 6.4 g/dL (6.4-8.2); Sodium Level 136 mmol/L (136-145)
[2018-03-01] MEDS ORDERED: ONDANSETRON 4 MG/2 ML VIAL ONE (03:52)
[2018-03-01] MEDS ORDERED: ACETAMINOPHEN 500 MG TAB PO PRN (04:51)
--- NOTE | 2018-03-01 05:13 | ER ---
Nurse's Notes [facility] Name: Jonathan Agudelo Age: 77 yrs Sex: Male : 1940 Arrival Date: 03/01/2018 Time: 01:44 Bed 5 Private MD: Vivian Moody H Diagnosis: Other chest pain;CKD Presentation: 03/01 01:55 Presenting complaint: Patient states: He started swelling and pain to kobe lower ea extremities three days ago, had an appointment with Dr. Moody but was not able to see him. Pt reports he started having pain to left side of his chest that started tonight. Transition of care: patient was not received from another setting of care. Onset of symptoms was March 01, 2018. Risk Assessment: Do you want to hurt yourself or someone else? Patient reports no desire to harm self or others. Initial Sepsis Screen: Does the patient meet any 2 criteria? No. Patient's initial sepsis screen is negative. Does the patient have a suspected source of infection? No. Patient's initial sepsis screen is negative. Care prior to arrival: None. 01:55 Method Of Arrival: Wheelchair ea 01:55 Acuity: AAMIR 3 ea Triage Assessment: 02:05 General: Appears uncomfortable, Behavior is calm, cooperative, appropriate for age. ea Pain: Complains of pain in left lateral anterior chest Pain radiates to anterior aspect of left upper chest Pain currently is 5 out of 10 on a pain scale. Quality of pain is described as burning, Pain began 2 hours ago. Is intermittent, Aggravated by movement. EENT: No signs and/or symptoms were reported regarding the EENT system. Neuro: Level of Consciousness is awake, alert, obeys commands, Oriented to person, place, time, situation. Cardiovascular: Heart tones S1 S2 present Patient's skin is warm and dry. Rhythm is sinus rhythm. Cardiovascular: Respiratory: Airway is patent Respiratory effort is even, unlabored, Respiratory pattern is regular, symmetrical, Breath sounds are clear bilaterally. GI: Abdomen is round non-distended, Bowel sounds present X 4 quads. Abd is soft and non tender X 4 quads. : No signs and/or symptoms were reported regarding the genitourinary system. Derm: +2 pitting edema to kobe lower extremities. Derm: Skin is dry, Skin is normal, Skin temperature is warm. Musculoskeletal: Circulation, motion, and sensation intact. Historical: - Allergies: 02:04 No Known Allergies; ea - Home Meds: 02:04 amlodipine 10 mg tab 1 tab once daily [Active]; glimepiride 4 mg Oral tab BID [Active]; ea carvedilol 6.25 mg Oral tab 1 tab 2 times per day [Active]; sodium bicarbonate 325 mg Oral tab 325 mg twice a day [Active]; - PMHx: 02:04 CVA; Diabetes - NIDDM; HTN; Prostate Cancer; Vision problem; ea - PSHx: 02:04 Prostate removed; ea - Immunization history:: Adult Immunizations up to date. - Social history:: Smoking status: Patient/guardian denies using tobacco. - Ebola Screening: : No symptoms or risks identified at this time. Screenin:09 Abuse screen: Denies threats or abuse. Nutritional screening: No deficits noted. ea Tuberculosis screening: No symptoms or risk factors identified. Fall Risk None identified. Assessment: 04:18 Reassessment: Patient and/or family updated on plan of care and expected duration. Pain ea level reassessed. Patient is alert, oriented x 3, equal unlabored respirations, skin warm/dry/pink. Pt complaining of pain to left shoulder, provider notified, medication order obtained, medications administered, pt tolerated well. 05:11 Reassessment: Patient and/or family updated on plan of care and expected duration. Pain ea level reassessed. Patient is alert, oriented x 3, equal unlabored respirations, skin warm/dry/pink. Pain decreased. 05:34 Reassessment: Patient and/or family updated on plan of care and expected duration. Pain ea level reassessed. Report called to Myra KAY on fourth floor. Vital Signs: 01:55 BP 148 / 68; Pulse 63; Resp 18; Temp 98; Pulse Ox 98% on R/A; Weight 67.59 kg; Height 5 ea ft. (152.40 cm); Pain 5/10; 02:30 BP 131 / 64; Pulse 61; Resp 18; Pulse Ox 95% on R/A; ea 03:00 BP 133 / 62; Pulse 62; Resp 18; Pulse Ox 90% on R/A; ea 04:00 BP 133 / 63; Pulse 64; Resp 18; Pulse Ox 95% on 2 lpm NC; ea 05:19 BP 134 / 69; Pulse 63; Resp 16; Temp 97.8(O); Pulse Ox 95% on 2 lpm NC; Pain 0/10; ea 01:55 Body Mass Index 29.10 (67.59 kg, 152.40 cm) ea 03:00 Pt placed on O2 at 2L per n/c ea ED Course: 01:44 Patient arrived in ED. es 01:44 Vivian Moody DO is Private Physician. es 01:54 Tia Wilcox, RAHUL is Primary Nurse. ea 01:55 Arm band placed on right wrist. EKG completed in triage. Results shown to MD. ea 01:55 Patient has correct armband on for positive identification. Placed in gown. Bed in low ea position. Call light in reach. Side rails up X2. secured entrance monitor on. Pulse ox on. NIBP on. 01:56 Markus Osorio MD is Attending Physician. ps1 02:00 Triage completed. ea 02:03 X-ray completed. Portable x-ray completed in exam room. Patient tolerated procedure kw well. 02:04 XRAY Chest (1 view) In Process Unspecified. EDMS 02:05 Initial lab(s) drawn, by me, sent to lab. Inserted saline lock: 20 gauge in right bb forearm, using aseptic technique. Blood collected. 02:10 Patient maintains SpO2 saturation greater than 95% on room air. ea 05:12 Kristin Malik MD is Hospitalizing Provider. ps1 05:35 No provider procedures requiring assistance completed. Patient admitted, IV remains in ea place. Administered Medications: 04:10 Not Given (med unavailable): morphine 4 mg IVP once ea 04:17 Drug: fentaNYL (PF) 25 mcg Route: IVP; Site: right antecubital; ea 05:12 Follow up: Response: No adverse reaction ea 05:12 Follow up: Response: Pain is decreased ea 04:17 Drug: Zofran 4 mg Route: IVP; Site: right antecubital; ea 05:12 Follow up: Response: No adverse reaction ea Outcome: 05:12 Decision to Hospitalize by Provider. ps1 05:36 Condition: stable ea 05:36 Instructed on the need for admit. 05:56 Admitted to Med/surg accompanied by tech, room 412, with chart, Report called to ea Receiving nurse on fourth floor. 06:08 Patient left the ED. timur Signatures: Dispatcher [employer] Emelyn Verdugo Brenda RN Briana Mims Elena, RN RN ea Singer, Phillip, MD MD ps1 Corrections: (The following items were deleted from the chart) 02:12 02:05 Derm: Skin is dry, Skin is jaundiced, Skin temperature is warm timur ding
--- NOTE | 2018-03-01 05:13 | EDPHYS ---
Physician Documentation [facility] Name: Jonatahn Agudelo Age: 77 yrs Sex: Male : 1940 Arrival Date: 03/01/2018 Time: 01:44 Bed 5 Private MD: Vivian Moody H ED Physician Markus Osorio Historical: - Allergies: 03/01 02:04 No Known Allergies; ea - Home Meds: 02:04 amlodipine 10 mg tab 1 tab once daily [Active]; glimepiride 4 mg Oral tab BID [Active]; ea carvedilol 6.25 mg Oral tab 1 tab 2 times per day [Active]; sodium bicarbonate 325 mg Oral tab 325 mg twice a day [Active]; - PMHx: 02:04 CVA; Diabetes - NIDDM; HTN; Prostate Cancer; Vision problem; ea - PSHx: 02:04 Prostate removed; ea - Immunization history:: Adult Immunizations up to date. - Social history:: Smoking status: Patient/guardian denies using tobacco. - Ebola Screening: : No symptoms or risks identified at this time. Vital Signs: 01:55 BP 148 / 68; Pulse 63; Resp 18; Temp 98; Pulse Ox 98% on R/A; Weight 67.59 kg; Height 5 ea ft. (152.40 cm); Pain 5/10; 02:30 BP 131 / 64; Pulse 61; Resp 18; Pulse Ox 95% on R/A; ea 03:00 BP 133 / 62; Pulse 62; Resp 18; Pulse Ox 90% on R/A; ea 04:00 BP 133 / 63; Pulse 64; Resp 18; Pulse Ox 95% on 2 lpm NC; ea 05:19 BP 134 / 69; Pulse 63; Resp 16; Temp 97.8(O); Pulse Ox 95% on 2 lpm NC; Pain 0/10; ea 01:55 Body Mass Index 29.10 (67.59 kg, 152.40 cm) ea 03:00 Pt placed on O2 at 2L per n/c ea MDM: 02:46 Patient medically screened. cp 03/01 01:53 Order name: Basic Metabolic Panel; Complete Time: 03:20 cp 03/01 01:53 Order name: CBC with Diff; Complete Time: 02:50 cp 03/01 01:53 Order name: Ckmb; Complete Time: 03:20 cp 03/01 01:53 Order name: CPK; Complete Time: 03:20 cp 03/01 01:53 Order name: LFT's; Complete Time: 03:20 cp 03/01 01:53 Order name: Magnesium; Complete Time: 03:20 cp 03/01 01:53 Order name: PT-INR; Complete Time: 02:50 cp 03/01 01:53 Order name: Ptt, Activated; Complete Time: 02:50 cp 03/01 01:53 Order name: Troponin (emerg Dept Use Only); Complete Time: 02:50 cp 03/01 04:54 Order name: Lipid Profile EDMS 03/01 04:54 Order name: Lipid Profile; Complete Time: 15:57 EDMS 03/01 04:54 Order name: Troponin I EDMS 03/01 04:54 Order name: Troponin I; Complete Time: 15:57 EDMS 03/01 04:54 Order name: Troponin I; Complete Time: 15:57 EDMS 03/01 01:53 Order name: XRAY Chest (1 view); Complete Time: 15:57 cp 03/01 01:53 Order name: EKG; Complete Time: 01:53 cp 03/01 01:53 Order name: Cardiac monitoring; Complete Time: 02:06 cp 03/01 01:53 Order name: EKG - Nurse/Tech; Complete Time: 02:07 cp 03/01 01:53 Order name: IV Saline Lock; Complete Time: 02:08 cp 03/01 01:53 Order name: Labs collected and sent; Complete Time: 02:08 cp 03/01 01:53 Order name: O2 Per Protocol; Complete Time: 02:07 cp 03/01 01:53 Order name: O2 Sat Monitoring; Complete Time: 02:07 cp 03/01 04:54 Order name: CONS Physician Consult EDVA 03/01 04:54 Order name: CONS Physician Consult EDVA 03/01 04:54 Order name: EKG Electrocardiogram EDVA 03/01 04:54 Order name: EKG Electrocardiogram EDVA Administered Medications: 04:10 Not Given (med unavailable): morphine 4 mg IVP once ea 04:17 Drug: fentaNYL (PF) 25 mcg Route: IVP; Site: right antecubital; ea 05:12 Follow up: Response: No adverse reaction ea 05:12 Follow up: Response: Pain is decreased ea 04:17 Drug: Zofran 4 mg Route: IVP; Site: right antecubital; ea 05:12 Follow up: Response: No adverse reaction ea Disposition: 03/01/18 05:12 Hospitalization ordered by Kristin Malik for Observation. Preliminary diagnosis are Other chest pain, CKD. - Bed requested for Telemetry/MedSurg (observation). - Status is Observation. ea - Condition is Stable. - Problem is new. - Symptoms are unchanged. UTI on Admission? No Addendum: 03/13/2018 15:56 Addendum: 77 y/o M presenting with chest pain and bilateral lower extremity edema. p s1 Onset was over the last couple of days. Pain rated as moderate and radiating into the left shoulder. No remitting factors. ROS: + CP, SOB, EDEMA. -Hypoxia. N/V/D. EXAM: NAD, NCAT, PERRL. RRR, No MRG. Chest Mild fluid rhonchi. Abd Soft NT. + BS. Bilat JACKELYN. MDM: PT with history and risk factors. Will admit for troponin trending and CHF exacerbation.. Signatures: Dispatcher [employer] EDMS Luis Antonio Egan PA PA cp Antunez, Elena, RN RN Markus Long MD MD ps1 Brittany Dos Santos Corrections: (The following items were deleted from the chart) 03/01 05:13 05:12 Hospitalization Ordered by Kristin Malik MD for Observation. Preliminary eb diagnosis is Other chest pain; CKD. Bed requested for Telemetry/MedSurg (observation). Status is Observation. Condition is Stable. Problem is new. Symptoms are unchanged. UTI on Admission? No. ps1 06:08 05:13 03/01/2018 05:12 Hospitalization Ordered by Kristin Malik MD for Observation. ea Preliminary diagnosis is Other chest pain; CKD. Bed requested for Telemetry/MedSurg (observation). Status is Observation. Condition is Stable. Problem is new. Symptoms are unchanged. UTI on Admission? No. eb 03/13 16:02 15:56 Addendum: 77 y/o M presenting with chest pain and bilateral lower extremity ps1 edema. . ps1
[2018-03-01 06:23] VITALS: BMI 28.5
--- NOTE | 2018-03-01 06:25 | EKG ---
Test Date: 2018-03-01 Test Time: 01:50:50 Manager Strategic Development: RAFFAELE MEASUREMENT RESULTS: Intervals: Rate: 64 NE: 170 QRSD: 152 QT: 466 QTc: 480 [place]: P: 46 NE: 170 QRS: -54 T: 108 INTERPRETIVE STATEMENTS: Normal sinus rhythm Left axis deviation Left bundle branch block Abnormal ECG Compared to ECG 01/28/2018 15:31:22 No significant changes Electronically Signed On 03-01-18 06:22:21 CDT by Clarence Renteria
--- NOTE | 2018-03-01 06:54 | P.HP ---
Certification for Inpatient Patient admitted to: Inpatient With expected LOS: >2 Midnights Patient will require the following post-hospital care: None Practitioner: I am a practitioner with admitting privileges, knowledge of patient current condition, hospital course, and medical plan of care. Services: Services provided to patient in accordance with Admission requirements found in Title 42 Section 412.3 of the Code of Federal Regulations Patient History Date of Service: 03/01/18 Reason for admission: Chest pain/bilateral lower extremity edema History of Present Illness: Patient is a 77-year-old gentleman who came into the hospital was bilateral lower extremity edema. Patient was recently in the hospital and was found have acute renal failure. Patient was treated and discharged for outpatient follow- up which she has not been able to follow through with an outpatient appointment. Patient has clinically continued to decline. He has developed lower extremity edema and shortness of breath. He has not been eating well as a food does not taste right. The swelling in his leg is probably the thing that bothers him the most. His renal function has declined even from a month ago. We will go ahead and get Nephrology consultation. Patient also has some vague chest discomfort. He states that it is improved. Will monitor his troponins and possibly cardiology evaluation as well. Patient is unsure if she wants to proceed with hemodialysis although I feel that this is an option that may need to be decided sooner than later Allergies No Known Allergies Allergy (Verified 01/28/18 20:30) Home Medications: Glimepiride 1 tab PO BID 01/17/18 Amlodipine [Norvasc*] 10 mg PO DAILY #30 tab 01/18/18 Carvedilol [Coreg*] 6.25 mg PO BID #60 tab 01/18/18 Furosemide [Lasix] 40 mg PO DAILY #30 tab 01/30/18 Na Bicarb Tab [Sodium Bicarb 325 MG Tab*] 650 mg PO BID #120 tab 01/30/18 - Past Medical/Surgical History Diabetic: No -: HTN, rheumatoid arthritis; APA -: Aortic stenosis -: afib -: Chronic kidney disease -: prostate surgery - Family History Father Medical History: Lung disease - Social History Smoking Status: Unknown if ever smoked Smoking therapy provided: No Patient receptive to therapy: No Alcohol use: No CD- Drugs: No Caffeine use: No Review of Systems 10-point ROS is otherwise unremarkable Physical Examination - Vital Signs Temperature: 97.2 F Blood Pressure: 140/67 Pulse: 67 Respirations: 16 Pulse Ox (%): 90 - Physical Exam General: Alert, In no apparent distress, Oriented x2 HEENT: Atraumatic, PERRLA, Mucous membr. moist/pink, EOMI, Sclerae nonicteric Neck: Supple, 2+ carotid pulse no bruit, No LAD, Without JVD or thyroid abnormality Respiratory: Crackles/rales Cardiovascular: Regular rate/rhythm, Normal S1 S2, Systolic murmur Gastrointestinal: Normal bowel sounds, Soft and benign, Non-distended, No tenderness Musculoskeletal: No clubbing, No tenderness, Swelling Integumentary: No rashes Neurological: Normal gait, Normal speech, Normal strength at 5/5 x4 extr, Normal tone, Sensation intact, Cranial nerves 3-12 intact, Normal affect Lymphatics: No axilla or inguinal lymphadenopathy - Studies Laboratory Data (last 24 hrs) 03/01/18 02:05: PT 12.7 H, INR 1.08, APTT 32.4 03/01/18 02:05: WBC 6.0, Hgb 9.0 L, Hct 26.7 L, Plt Count 194 03/01/18 02:05: Sodium 136, Potassium 4.3, BUN 91 H, Creatinine 5.00 H, Glucose 248 H, Magnesium 2.4, Total Bilirubin 0.3, AST 32, ALT 45, Alkaline Phosphatase 140 H Assessment & Plan - Problems (Diagnosis) (1) Aortic stenosis Onset Date: 01/30/18 Current Visit: No Status: Acute (2) CHF (congestive heart failure) Onset Date: 01/30/18 Current Visit: No Status: Acute Qualifiers: Heart failure type: diastolic Heart failure chronicity: acute on chronic Qualified Code(s): I50.33 - Acute on chronic diastolic (congestive) heart failure (3) Edema Onset Date: 01/30/18 Current Visit: No Status: Acute (4) Essential hypertension Onset Date: 01/30/18 Current Visit: No Status: Acute (5) Paroxysmal atrial fibrillation Onset Date: 01/30/18 Current Visit: No Status: Acute (6) Pulmonary edema Onset Date: 01/30/18 Current Visit: No Status: Acute (7) Rheumatoid arthritis Onset Date: 01/30/18 Current Visit: No Status: Acute (8) JANES (acute kidney injury) Onset Date: 01/17/18 Current Visit: No Status: Chronic (9) Anemia Onset Date: 01/30/18 Current Visit: No Status: Chronic Qualifiers: Anemia type: iron deficiency (10) Chronic renal disease Onset Date: 01/30/18 Current Visit: No Status: Chronic Qualifiers: Chronic kidney disease stage: stage 4 (severe) Qualified Code(s): N18.4 - Chronic kidney disease, stage 4 (severe) (11) Diabetes mellitus Onset Date: 01/30/18 Current Visit: No Status: Chronic Qualifiers: Diabetes mellitus type: type 2 Diabetes mellitus mounter sousaphones insulin use: unspecified mounter sousaphones insulin use status Diabetes mellitus complication status : with kidney complications Diabetes mellitus complication detail: with chronic kidney disease Chronic kidney disease stage: stage 4 (severe) Qualified Code(s): E11.22 - Type 2 diabetes mellitus with diabetic chronic kidney disease; N18.4 - Chronic kidney disease, stage 4 (severe) - Plan Plan: 1. Serial troponins and EKG 2. Cardiology consultation 3. Echocardiogram has been performed. Will review this 4. Anti-platelet therapy, anti coagulation, beta-bria, statin, and O2 as needed 5. IV morphine for pain 6. May need to get renal Doppler as well 7. Monitor renal function closely 8. Nephrology consultation 9. Strict input and output 10. GI and DVT prophylaxis - Advance Directives Does patient have a Living Will: No Does patient have a Durable POA for Healthcare: No
[2018-03-01] MEDS: ASPIRIN EC 81 MG TAB PO SCH (08:11)
[2018-03-01] MEDS: ALPRAZOLAM 0.25 MG TABLET PO PRN ×2 (08:12→21:47)
[2018-03-01] MEDS: ENOXAPARIN 30 MG/0.3 ML SQ SCH (08:35)
--- NOTE | 2018-03-01 08:39 | RAD REPORT ---
EXAM DESCRIPTION: [facility] Single View03/01/2018 2:06 am CLINICAL HISTORY: Chest pain COMPARISON: January 30, 2018 FINDINGS: [id number] bilateral pulmonary opacities are present. The heart is mildly to moderat srinivasan enlarged. IMPRESSION: Mild to moderate CHF is suspected
[2018-03-01] MEDS ORDERED: METOPROLOL TAR 50 MG TAB PO SCH (09:00)
[2018-03-01] MEDS ORDERED: SOD FERRIC GLUC COMPLX/SUCROSE 250 MG in NA CHLORIDE 0.9% 250 ML IV SCH (11:00)
[2018-03-01] MEDS: FUROSEMIDE 40 MG/4 ML VIAL IV SCH ×2 (11:28→17:00)
--- NOTE | 2018-03-01 11:29 | RAD REPORT ---
EXAM DESCRIPTION: NM - Vent Perfusion VQ Scan - 03/01/2018 11:14 am CLINICAL HISTORY: Shortness of breath COMPARISON: March 01, 2018 chest x-ray TECHNIQUE: 10.8 Mci [id number] was administered by inhalation. First breath, equilibrium, and washout images of the lungs were taken 7.5 millicuries Technetium-99 MAA was administered intravenously. Anterior, posterior, lateral and ob lique views of the lungs were taken. FINDINGS: The lungs demonstrate relatively homogeneous radiotracer activity on ventilation and perfu woo sequences. A linear defect within the left lung corresponds to the oblique fissure No mismatched segmental or lobar perfusion defects are seen. IMPRESSION: No evidence of a pulmonary embolus
--- NOTE | 2018-03-01 11:38 | CON ---
Date of Consultation: 03/01/2018 Additional Consulting Physician: Nancy Mccloud MD Reason For Consultation: Elevated BUN and creatinine, fluid management. History Of Present Illness: This is a 77-year-old gentleman with significant past medical history of chronic kidney disease, stage 4, with normal size kidney and nephrotic range of proteinuria. Full w orkup done on the previous admission including SPEP and UPEP and serology, all negative. 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 At that time, the patient was diuresed, recovered well, creatinine plateaued around 3.3 with GFR of 18. The patie nt discharged home, did not follow up as outpatient. According to the family for the last few days, the patient started having leg swelling, feeling weak, and shortness of breath. For that reason, he came to the hospital, found to have elevated BUN and creatinine and over volume. For that reason, he was admitted and we have been consulted. The patient denied taking any nonsteroidal. No IV contras t. No other changes in his medications. Past Medical History: Includes: 1.Diabetes since 2004, complicated with neuropathy and retinopathy status post laser, and nephropath y. 2.Hypertension. 3.CVA without any residual. 4.Benign prostate hypertrophy, status post TURP. 5.Chronic kidney disease, stage 4, baseline creatinine 3.5, GFR between 17 and 20 with nephrotic ran ge of proteinuria secondary to diabetes. Serology and SPEP and UPEP within normal limit. Past Surgical History: Include TURP. Family History: Positive for hypertension and lung disease. Social History: Denies smoking. Denies drinking. Denies drugs abuse. Home Medications: Include sodium bicarb 650 b.i.d., glimepiride, carvedilol 625 b.i.d., Norvasc 10. Current Medications In The Hospital: Include Xanax, aspirin, metoprolol. Review of Systems: Head and Neck: No red eye. No ear pain. GI: Decreased intake. : No polyuria. No dysuria. No hematuria. 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 Respiratory: Has shortness of breath. Cardiovascular: Has orthopnea, has leg swelling. Endocrine: No polydipsia. Skin: No rash. Neuro: No weakness. No tremor. Musculoskeletal: No joint pain. Physical Examination: Vital Signs: When I saw the patient, blood pressure of 141/65, pulse of 66, afebrile. General: The patient lying on 2 pillows. Chest: Crackles bilateral base. Heart: S1, S2. Systolic murmur. Abdomen: Soft, nontender. Extremities: Trace edema. Laboratory Data: WBC 6, H and H 9/26.7, platelets 194. Sodium 136, potassium 4.3, bicarb 23, BUN 91 . Creatinine up to 5, on last admission when he was discharged was 3.9. GFR of 11, on discharge it was 15. Calcium 7.7. On the previous admission, TSAT of 27 with ferritin of 83, CK 294, PTH 185, TS H 1.4. Assessment And Plan: 1.Chronic kidney disease, stage 4 with progression, possible to stage 5, over volume, nonoliguric. No hyperkalemia. No significant acidosis. I am going to go ahead given the history of the benign pr ostate hypertrophy, I am going to go ahead and repeat ultrasound just to rule out any obstruction. I will add Lasix 80 mg b.i.d. to establish better volume control. We will send for PTH and TSH to lee amin if there is any supplement needed. 2.Iron deficiency anemia. We will start the patient on IV iron. 3.Congestive heart failure. We will establish better volume control with Lasix. 4.Hypertension. We will utilize blood pressure with diuresis. 5.Diabetes as by primary. 6.Neuropathy. We will follow up with primary. Thank you Dr. Mccloud for allowing us to participate in the care of your patient. MEKHI/SCOOBY Voice ID: [id number] Report ID: [id number]
--- NOTE | 2018-03-01 12:10 | RAD REPORT ---
EXAM DESCRIPTION: US - Renal Ultrasound-Complete - 03/01/2018 11:59 am CLINICAL HISTORY: . Acute renal insufficiency/chronic renal disease COMPARISON: January 2018 FINDINGS: The right kidney measures 9 centimeters with an increased echotexture. A 1.1 centimeter ri ght renal cyst is seen. . The left kidney measures 9 centimeters with an increased echotexture. A 2.4 centimeter left renal cys t is present. Hydronephrosis is not seen. No gross abnormality of bladder is seen. IMPRESSION: Increased renal echotexture consistent with parenchymal disease Bilateral renal cysts
--- NOTE | 2018-03-01 12:17 | CON ---
Reason For Consultation: Chest pain. History Of Present Illness: Mr. Agudelo has been having all of these symptoms since for about 6-7 wee ks, perhaps longer. He notes swelling in the legs, shortness of breath. He has pain. It is very pl euritic. It is in the upper left part of his chest. It was not of sudden onset. It has been presen t for quite sometime. He has never had myocardial infarction or stroke. He had prostate trouble and he has been found recently to have creatinine is very high, although today it is 5.0. It has not be en that high in the past. He does not have a history of bypass surgery, stents, myocardial infarctio n, any vascular surgery. He has longstanding diabetes, hypertension. He also has swelling in the le gs. Physical Examination: There is edema. There is pleuritic chest pain. Alert and oriented, pleasant. Lungs; no crackles or wheeze. Heart exam; a 2/6 systolic ejection type murmur. Impression: The patient has renal failure. I worry that he has had pulmonary embolus and may have p ulmonary hypertension. I would recommend ultrasound of leg veins, ventilation, perfusion, and lung s can. ROHAN/SCOOBY Voice ID: [id number] Report ID: [id number]
[2018-03-01 13:58] LABS: CKMB Creatine Kinase MB 4.8 ng/mL (0.3-3.6); Thyroid Stimulating Hormone 1.92 uIU/mL (0.36-3.74); Uric Acid 6.8 mg/dL (3.5-7.2)
[2018-03-01 14:46] LABS: Urine Appearance CLEAR; Urine Bilirubin NEGATIVE (NEG); Urine Blood 1+ (NEG); Urine Color YELLOW; Urine Glucose NEGATIVE (NEG); Urine Protein 3+ (NEG); Urine Specific Gravity 1.015 (1.005-1.030); Urine Urobilinogen 0.2 mg/dL (0.2-1.0); Urine pH 5.5 (5.0-7.0)
[2018-03-01 15:01] LABS: Urine Microscopic Reflex ORDER UMIC
[2018-03-01 15:25] LABS: Urine Bacteria <20 /HPF (NONE SEEN); Urine RBC <5 /HPF (NONE SEEN)
[2018-03-01 15:26] LABS: Urine Culture Reflex Order NOT NEEDED
[2018-03-01 15:33] LABS: UR PROTEIN 226 mg/dL (<11.9)
[2018-03-01 15:46] LABS: UR CL RANDOM < 10 mmol/L (25-40)
[2018-03-01] MEDS: CARVEDILOL 6.25 MG TAB PO SCH (21:47)
[2018-03-02] MEDS: ENOXAPARIN 30 MG/0.3 ML SQ SCH (08:42)
[2018-03-02] MEDS: ASPIRIN EC 81 MG TAB PO SCH (08:43)
[2018-03-02] MEDS: CARVEDILOL 6.25 MG TAB PO SCH ×2 (08:43→21:41)
[2018-03-02] MEDS: FUROSEMIDE 40 MG/4 ML VIAL IV SCH ×2 (08:44→17:17)
[2018-03-02] MEDS: AMLODIPINE 10 MG TAB PO SCH (08:44)
--- NOTE | 2018-03-02 10:50 | EKG ---
Test Date: 2018-03-02 Test Time: 08:22:46 Engineering Assistant: AIDEN MEASUREMENT RESULTS: Intervals: Rate: 71 AR: 160 QRSD: 152 QT: 448 QTc: 486 [place]: P: 40 AR: 160 QRS: -42 T: 104 INTERPRETIVE STATEMENTS: Normal sinus rhythm Left axis deviation Left bundle branch block Abnormal ECG Compared to ECG 03/01/2018 01:50:50 No significant changes Electronically Signed On 03-02-18 10:49:25 CDT by Givoanni Nance
[2018-03-02 13:13] LABS: Absolute Lymphocytes (CBC) 0.5 K/uL (0.7-4.9); Absolute Monocytes 0.6 K/uL (0.1-1.3); Absolute Neutrophil 5.9 K/uL (1.8-8.0); Basophils % 0.8 % (0-1.3); Eosinophils % 2.7 % (0-4.4); Hematocrit 29.3 % (39.6-49.0); Lymphocytes % 6.4 % (15.3-44.8); MCH 28.7 pg (27.0-35.0); MCV 86.7 fL (80-100); MPV 9.7 fL (7.6-11.3); Monocytes % 8.5 % (3.3-12.3); RBC Red Blood Cell Count 3.38 M/uL (4.33-5.43)
--- NOTE | 2018-03-02 13:14 | P.PN ---
Subjective Date of Service: 03/02/18 Chief Complaint: Chest pain/bilateral lower extremity edema Pt seen and examined at bedside. Chart Reviewed. Case DW with Cardiology and nephrology. Currently pt has no complains to offer at this time. Pt denies CP and SOB. Currently lab are pending. Review of Systems General: As per HPI Physical Examination - Vital Signs Temperature: 97.4 F Blood Pressure: 161/84 Pulse: 81 Respirations: 15 Pulse Ox (%): 91 - Physical Exam General: Alert, In no apparent distress HEENT: Atraumatic, PERRLA, EOMI Neck: Supple, JVD not distended Respiratory: Normal air movement, Crackles/rales Cardiovascular: Regular rate/rhythm, Normal S1 S2 Gastrointestinal: Normal bowel sounds, No tenderness Musculoskeletal: No tenderness Integumentary: No rashes Neurological: Normal speech, Normal tone, Normal affect Lymphatics: No axilla or inguinal lymphadenopathy - Studies Medications List Reviewed: Yes Assessment & Plan - Problems (Diagnosis) (1) JANES (acute kidney injury) Onset Date: 03/02/18 Current Visit: Yes Status: Acute Plan: Acute on Chronic Kidney injury. Stage 4 not on dialysis -Nephrology consulted. -Started on IV lasix 80mg BID for now -Lab work pending today. If no improvement Nephrology considering HD. (2) Aortic stenosis Onset Date: 03/02/18 Current Visit: Yes Status: Chronic Qualifiers: Cardiac valve disease etiology: etiology unspecified Qualified Code(s): I35.0 - Nonrheumatic aortic (valve) stenosis (3) CHF (congestive heart failure) Onset Date: 03/02/18 Current Visit: Yes Status: Chronic Qualifiers: Heart failure type: diastolic Heart failure chronicity: acute on chronic Qualified Code(s): I50.33 - Acute on chronic diastolic (congestive) heart failure (4) Essential hypertension Onset Date: 03/02/18 Current Visit: Yes Status: Chronic (5) Paroxysmal atrial fibrillation Onset Date: 03/02/18 Current Visit: Yes Status: Chronic (6) Rheumatoid arthritis Onset Date: 03/02/18 Current Visit: Yes Status: Chronic Qualifiers: Rheumatoid arthritis location: unspecified site Rheumatoid factor presence : unspecified presence Qualified Code(s): M06.9 - Rheumatoid arthritis, unspecified (7) Diabetes mellitus Onset Date: 03/02/18 Current Visit: Yes Status: Chronic Qualifiers: Diabetes mellitus type: type 2 Diabetes mellitus 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
[2018-03-02 13:31] LABS: Albumin 2.9 g/dL (3.4-5.0); Bilirubin Total 0.4 mg/dL (0.2-1.0); Potassium 4.5 mmol/L (3.5-5.1); Protein, Total 6.4 g/dL (6.4-8.2)
[2018-03-02] MEDS ORDERED: GLUCAGON 1 MG/VIAL IM PRN (16:24)
[2018-03-02] MEDS ORDERED: D50W 25 GM/50 ML SYRINGE IV PRN (16:24)
[2018-03-02] MEDS: INSULIN -REGULAR HUMAN 50 UNIT/0.5 ML ML SQ SCH ×2 (17:16→21:41)
--- NOTE | 2018-03-03 01:32 | PN ---
Date of Progress Note: 03/02/2018 The patient admitted on 03/01/2018, seen by Dr. Renteria for shortness of breath, pleuritic type of arsh st pain, and edema. He had a V/Q scan that was negative. Echocardiogram that was negative. Chest p ain is pleuritic. Creatinine is 5.0. His diabetes and hypertension remained in sinus rhythm. We wi ll sign off his case for now. ALPHONSO/SCOOBY Voice ID: [id number] Report ID: [id number]
[2018-03-03 05:21] LABS: Absolute Lymphocytes (CBC) 0.6 K/uL (0.7-4.9); Absolute Monocytes 0.9 K/uL (0.1-1.3); Absolute Neutrophil 5.6 K/uL (1.8-8.0); Basophils % 1.1 % (0-1.3); Eosinophils % 2.5 % (0-4.4); Hematocrit 29.2 % (39.6-49.0); Lymphocytes % 8.3 % (15.3-44.8); MCH 28.7 pg (27.0-35.0); MCV 85.8 fL (80-100); MPV 9.6 fL (7.6-11.3); Monocytes % 12.5 % (3.3-12.3)
[2018-03-03 05:43] LABS: Bilirubin Total 0.5 mg/dL (0.2-1.0); Protein, Total 6.4 g/dL (6.4-8.2)
[2018-03-03] MEDS: INSULIN -REGULAR HUMAN 50 UNIT/0.5 ML ML SQ SCH ×3 (07:30→18:24)
[2018-03-03 08:53] VITALS: O2SAT 96
[2018-03-03] MEDS: ASPIRIN EC 81 MG TAB PO SCH (10:50)
[2018-03-03] MEDS: FUROSEMIDE 40 MG/4 ML VIAL IV SCH ×2 (10:51→18:29)
[2018-03-03] MEDS: CARVEDILOL 6.25 MG TAB PO SCH (10:51)
[2018-03-03] MEDS: ENOXAPARIN 30 MG/0.3 ML SQ SCH (10:52)
[2018-03-03] MEDS: AMLODIPINE 10 MG TAB PO SCH (10:53)
[2018-03-03] MEDS ORDERED: GABAPENTIN 100 MG CAP PO SCH (14:00)
--- NOTE | 2018-03-03 14:53 | P.PN ---
Subjective Date of Service: 03/03/18 Chief Complaint: Chest pain/bilateral lower extremity edema Pt seen and examined at bedside. Chart Reviewed. Case DW with Cardiology and nephrology. Currently pt complains of neuropathy and states he legs feel like they are swollen more. Pt denies CP and SOB. Currently lab are pending. Review of Systems General: As per HPI Physical Examination - Vital Signs Temperature: 97.2 F Blood Pressure: 149/63 Pulse: 73 Respirations: 18 Pulse Ox (%): 96 - Physical Exam General: Alert, In no apparent distress HEENT: Atraumatic, PERRLA, EOMI Neck: Supple, JVD not distended Respiratory: Clear to auscultation bilaterally, Normal air movement Cardiovascular: Regular rate/rhythm, Normal S1 S2 Gastrointestinal: Normal bowel sounds, No tenderness Musculoskeletal: Swelling (BL LE Swelling ) Integumentary: No rashes Neurological: Normal speech, Normal tone, Normal affect Lymphatics: No axilla or inguinal lymphadenopathy - Studies Medications List Reviewed: Yes Assessment & Plan - Problems (Diagnosis) (1) JANES (acute kidney injury) Onset Date: 03/02/18 Current Visit: Yes Status: Acute Plan: Acute on Chronic Kidney injury. Stage 4 not on dialysis -Nephrology consulted. Appreciated Reccs -Started on IV lasix 80mg BID for now -Lab work pending today. If no improvement Nephrology considering HD. (2) Aortic stenosis Onset Date: 03/02/18 Current Visit: Yes Status: Chronic Qualifiers: Cardiac valve disease etiology: etiology unspecified Qualified Code(s): I35.0 - Nonrheumatic aortic (valve) stenosis (3) CHF (congestive heart failure) Onset Date: 03/02/18 Current Visit: Yes Status: Chronic Qualifiers: Heart failure type: diastolic Heart failure chronicity: acute on chronic Qualified Code(s): I50.33 - Acute on chronic diastolic (congestive) heart failure (4) Essential hypertension Onset Date: 03/02/18 Current Visit: Yes Status: Chronic (5) Paroxysmal atrial fibrillation Onset Date: 03/02/18 Current Visit: Yes Status: Chronic (6) Rheumatoid arthritis Onset Date: 03/02/18 Current Visit: Yes Status: Chronic Qualifiers: Rheumatoid arthritis location: unspecified site Rheumatoid factor presence : unspecified presence Qualified Code(s): M06.9 - Rheumatoid arthritis, unspecified (7) Diabetes mellitus Onset Date: 03/02/18 Current Visit: Yes Status: Chronic Qualifiers: Diabetes mellitus type: type 2 Diabetes mellitus nursing 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
[2018-03-03] MEDS ORDERED: EPOETIN ALFA 10,000 UNIT/ML VIAL SQ ONE (18:15)
[2018-03-03] MEDS ORDERED: SOD FERRIC GLUC COMPLX/SUCROSE 125 MG in NA CHLORIDE 0.9% 100 ML IV ONE (18:30)
[2018-03-03 19:48] VITALS: BP 148/71; TEMP 96.7
--- NOTE | 2018-03-04 00:14 | PN ---
Date of Progress Note: 03/03/2018 Subjective: The patient is doing well, chest pain free, no shortness of breath, on room air. Physical Examination: Vital Signs: When I saw the patient, blood pressure 134/60, pulse of 70 afebrile. Chest: Clear to auscultation. Heart: S1, S2. Regular. Abdomen: Soft, nontender. Extremities: No edema. Laboratory Data: WBC 7.4, H and H 9.8/29.2, platelet 215, sodium 142, potassium 4, bicarb 26, BUN 81 , creatinine 5, GFR of 11, calcium 8.3. Cardiac enzyme was negative. PTH 195. TSH 1.9. Medications: Current medications the patient on its include: 1.IV iron. 2.Amlodipine 10. 3.Carvedilol 6.25. 4.Alprazolam. 5.Gabapentin. Assessment And Plan: 1.Chronic kidney disease, stage 4/5 progression of diabetes nephropathy, nonoliguric, no hyperkalemi a. No acidosis. I had long discussion with the patient with the help of a insolvency consultant, Ms. Salinas, and t he charge nurse regarding the need for preparation for renal replacement therapy. Unfortunately the patient does not have any mean for transportation. After long explanation, we going to see the roya paris in the office next week, then we will arrange for him to see a vascular surgeon in the area, then prepare for AV fistula creation. I do not see any need for the patient to initiate the renal replace ment therapy or dialysis on this admission. 2.Hypertension, controlled, optimal. Continue current medication. 3.Congestive heart failure. We will switch the patient to oral Lasix. 4.Anemia, iron deficiency anemia with chronic kidney disease anemia. I am going to start the sharmila dey on Epogen. We will continue with IV iron. 5.Coronary artery disease, stable, cleared by Cardiology. The patient had clear instruction to call the office Tuesday to schedule appointment for Tuesday and we will proceed from there. Patient and verbalized understanding. Time spent, 45 minute. KASSIE Voice ID: [id number] Report ID: [id number]
--- NOTE | 2018-03-18 11:12 | P.SSS ---
Patient History Date of Service: 03/18/18 Reason for admission: Chest pain/bilateral lower extremity edema History of Present Illness: Patient is a 77-year-old gentleman who came into the hospital was bilateral lower extremity edema. Patient was recently in the hospital and was found have acute renal failure. Patient was treated and discharged for outpatient follow- up which she has not been able to follow through with an outpatient appointment. Patient has clinically continued to decline. He has developed lower extremity edema and shortness of breath. He has not been eating well as a food does not taste right. The swelling in his leg is probably the thing that bothers him the most. His renal function has declined even from a month ago. We will go ahead and get Nephrology consultation. Patient also has some vague chest discomfort. He states that it is improved. Will monitor his troponins and possibly cardiology evaluation as well. Patient is unsure if she wants to proceed with hemodialysis although I feel that this is an option that may need to be decided sooner than later Allergies No Known Allergies Allergy (Verified 01/28/18 20:30) Home Medications: Amlodipine [Norvasc*] 10 mg PO DAILY #30 tab 01/18/18 Carvedilol [Coreg*] 6.25 mg PO BID #60 tab 01/18/18 Na Bicarb Tab [Sodium Bicarb 325 MG Tab*] 650 mg PO BID #120 tab 01/30/18 Glimepiride [Amaryl] 4 mg PO BID 03/01/18 Furosemide 80 mg PO DAILY #30 tablet 03/03/18 - Past Medical/Surgical History Has patient received pneumonia vaccine in the past: Yes Diabetic: No -: HTN, rheumatoid arthritis; APA -: Aortic stenosis -: afib -: Chronic kidney disease -: prostate surgery - Family History Father -: Lung disease - Social History Smoking Status: Unknown if ever smoked Alcohol use: No CD- Drugs: No Caffeine use: No Place of Residence: Home Review of Systems General: As per HPI Physical Examination - Vital Signs Temperature: 96.7 F Blood Pressure: 148/71 Pulse: 72 Respirations: 20 Pulse Ox (%): 91 - Physical Exam General: Alert, In no apparent distress HEENT: Atraumatic, PERRLA, Mucous membr. moist/pink, EOMI, Sclerae nonicteric Neck: Supple, 2+ carotid pulse no bruit, No LAD, Without JVD or thyroid abnormality Respiratory: Clear to auscultation bilaterally, Normal air movement Cardiovascular: Regular rate/rhythm, Normal S1 S2 Gastrointestinal: Normal bowel sounds, No tenderness Musculoskeletal: No tenderness Integumentary: No rashes Neurological: Normal gait, Normal speech, Normal strength at 5/5 x4 extr, Normal tone, Normal affect Lymphatics: No axilla or inguinal lymphadenopathy - Diagnosis (Problem(s)) (1) JANES (acute kidney injury) Onset Date: 03/02/18 Status: Acute (2) Aortic stenosis Onset Date: 03/02/18 Status: Chronic Qualifiers: Cardiac valve disease etiology: etiology unspecified Qualified Code(s): I35.0 - Nonrheumatic aortic (valve) stenosis (3) CHF (congestive heart failure) Onset Date: 03/02/18 Status: Chronic Qualifiers: Heart failure type: diastolic Heart failure chronicity: acute on chronic Qualified Code(s): I50.33 - Acute on chronic diastolic (congestive) heart failure (4) Essential hypertension Onset Date: 03/02/18 Status: Chronic (5) Paroxysmal atrial fibrillation Onset Date: 03/02/18 Status: Chronic (6) Rheumatoid arthritis Onset Date: 03/02/18 Status: Chronic Qualifiers: Rheumatoid arthritis location: unspecified site Rheumatoid factor presence : unspecified presence Qualified Code(s): M06.9 - Rheumatoid arthritis, unspecified (7) Diabetes mellitus Onset Date: 03/02/18 Status: Chronic Qualifiers: Diabetes mellitus type: type 2 Diabetes mellitus halfway insulin use: unspecified halfway insulin use status Diabetes mellitus complication status : with kidney complications Diabetes mellitus complication detail: with chronic kidney disease Chronic kidney disease stage: stage 4 (severe) Qualified Code(s): E11.22 - Type 2 diabetes mellitus with diabetic chronic kidney disease; N18.4 - Chronic kidney disease, stage 4 (severe) Treatment Summary: Overall during the hospital stay patient remained stable Patient was initially admitted to the hospital for acute on chronic kidney injury. Nephrology was consulted. Patient was started on IV fluids. Had improvement in his BUN and creatinine. Patient does have chronic kidney disease is stage IV. Nephrology recommended the patient to be discharged home with improvement of BUN and creatinine and will be started up with dialysis outpatient this does not need to be addressed here in the hospital. Patient was thus discharged home under stable condition and was asked to follow up with nephrology to get set up for dialysis. Patient is making urine at this time and was stable on discharge - Disposition Disposition: ROUTINE DISCHARGE
== END 2018-03-03 20:10 | disposition home or self-care (01) | DRG 682 ==
LOC: ER 01:43 → ERHOLD 04:51 → 4TH 05:25 → ERHOLD 05:25 → 4TH 06:14
PROVIDERS: ADMIT Hospitalist; ATTEND Family Medicine
DX: N17.9 Acute kidney failure, unspecified (principal); I50.33 Acute on chronic diastolic (congestive) heart failure; I13.2 Hypertensive heart and chronic kidney disease with heart failure and with stage 5 chronic kidney disease, or end stage renal disease; E11.21 Type 2 diabetes mellitus with diabetic nephropathy; E11.22 Type 2 diabetes mellitus with diabetic chronic kidney disease; N18.5 Chronic kidney disease, stage 5; D63.1 Anemia in chronic kidney disease; I25.10 Atherosclerotic heart disease of native coronary artery without angina pectoris; E11.40 Type 2 diabetes mellitus with diabetic neuropathy, unspecified; I35.0 Nonrheumatic aortic (valve) stenosis; I48.0 Paroxysmal atrial fibrillation; M06.9 Rheumatoid arthritis, unspecified; R07.81 Pleurodynia; E11.319 Type 2 diabetes mellitus with unspecified diabetic retinopathy without macular edema; Z86.73 Personal history of transient ischemic attack (TIA), and cerebral infarction without residual deficits; Z79.84 Long term (current) use of oral hypoglycemic drugs
CPT/HCPCS: 36415; 71045; 76770; 78582; 80048; 80053; 80061; 80076; 81003; 81015; 82435; 82550; 82553; 82962; 83735; 83970; 84156; 84443; 84484; 84550; 85025; 85610; 85730; 93005; 96374; 96375; 99285; A9540; A9558; J1650; J2405; J2916; Q4081

== ENCOUNTER 2018-05-26 18:04 | Inpatient (IN) | payer OTHER ==
[2018-05-26] MEDS ORDERED: NA CHLORIDE 0.9% 1,000 ML ONE ×2 (18:53→21:42)
[2018-05-26] MEDS ORDERED: FENTANYL CITR 100 MCG/2 ML ONE ×2 (18:53→20:36)
[2018-05-26] MEDS ORDERED: ONDANSETRON 4 MG/2 ML VIAL ONE (18:53)
--- NOTE | 2018-05-26 18:58 | RAD REPORT ---
EXAM DESCRIPTION: CT - Head Brain Wo Cont - 05/26/2018 6:45 pm CLINICAL HISTORY: Headache COMPARISON: January 2018 TECHNIQUE: Computed axial tomography of the head was obtained. IV contrast was not requested. All CT scans are performed using dose optimization technique as appropriate and may include automated exposure control or mA/KV adjustment according to patient size. FINDINGS: An intracranial bleed is not seen . The ventricles are normal in caliber. No extra-axial fluid collection is noted. Fluid within the sinuses/ mastoids is not seen. IMPRESSION: No acute intracranial abnormality is seen. If patient's symptoms persist MRI of the bra in would be recommended.
--- NOTE | 2018-05-26 19:43 | ER ---
Nurse's Notes [facility] Name: Jonathan Agudelo Age: 77 yrs Sex: Male : 1940 Arrival Date: 05/26/2018 Time: 18:07 Bed 17 Private MD: Vivian Moody H Diagnosis: Headache;Vision sensitivity deficiencies;Arteritis, unspecified-temporal;Unspecified kidney failure-chronic;Type 2 diabetes mellitus-uncontrolled Presentation: 05/26 18:09 Presenting complaint: Patient states: Headache since Tuesday. Saw PCP on Tuesday, given aj sumatriptan with no improvement. Denies Nausea. Transition of care: patient was not received from another setting of care. Onset of symptoms was May 21, 2018. Risk Assessment: Do you want to hurt yourself or someone else? Patient reports no desire to harm self or others. Initial Sepsis Screen: Does the patient meet any 2 criteria? No. Patient's initial sepsis screen is negative. Does the patient have a suspected source of infection? No. Patient's initial sepsis screen is negative. Care prior to arrival: None. 18:09 Method Of Arrival: Ambulatory 18:09 Acuity: AAMIR 3 Triage Assessment: 18:11 Headache History: The patient has had previous headaches and this one is different than previous episodes. General: Appears in no apparent distress. uncomfortable, Behavior is calm, cooperative, appropriate for age. Pain: Complains of pain in face and scalp. Neuro: Level of Consciousness is awake, alert, obeys commands, Oriented to person, place, time, situation, Appropriate for age. Respiratory: Airway is patent Respiratory effort is even, unlabored, Respiratory pattern is regular, symmetrical. GI: Reports anorexia. Derm: Skin is intact, is healthy with good turgor, Skin is pink, warm \T\ dry. normal. 19:23 Pain: Pain began 2-3 days ago. Also complains of no other associated symptoms. ao Historical: - Allergies: 18:11 No Known Allergies; aj - Home Meds: 18:11 amlodipine 10 mg tab 1 tab once daily [Active]; Bentyl 20 mg Oral tab 3 times per day aj [Active]; carvedilol 6.25 mg Oral tab 1 tab 2 times per day [Active]; glimepiride 4 mg Oral tab BID [Active]; Lomotil 2.5-0.025 mg Oral tab 4 times per day for diarrhea [Active]; sodium bicarbonate 325 mg Oral tab 325 mg twice a day [Active]; - PMHx: 18:11 CVA; Diabetes - NIDDM; HTN; Prostate Cancer; Vision problem; aj - PSHx: 18:11 Prostate removed; aj - Immunization history:: Adult Immunizations up to date. - Social history:: Smoking status: Patient/guardian denies using tobacco. - Ebola Screening: : Patient negative for fever greater than or equal to 101.5 degrees Fahrenheit, and additional compatible Ebola Virus Disease symptoms Patient denies exposure to infectious person Patient denies travel to an Ebola-affected area in the 21 days before illness onset No symptoms or risks identified at this time. - Family history:: not pertinent. Screenin:23 Abuse screen: Denies threats or abuse. Denies injuries from another. Nutritional ao screening: No deficits noted. Tuberculosis screening: No symptoms or risk factors identified. Fall Risk None identified. Assessment: 19:19 General: Appears in no apparent distress. comfortable, Behavior is calm, cooperative. ao Pain: Complains of pain in left episcopal Pain currently is 8 out of 10 on a pain scale. Neuro: Level of Consciousness is awake, alert, obeys commands, Oriented to person, place, time, situation, Appropriate for age Moves all extremities. Full function Speech is normal, Facial symmetry appears normal. Neuro: Reports headache in left parietal area, frontal area. Cardiovascular: Capillary refill < 3 seconds Patient's skin is warm and dry. Respiratory: Airway is patent Respiratory effort is even, unlabored, Respiratory pattern is regular, symmetrical, Breath sounds are clear bilaterally. GI: Abdomen is non-distended. : No signs and/or symptoms were reported regarding the genitourinary system. EENT: No signs and/or symptoms were reported regarding the EENT system. Derm: No signs and/or symptoms reported regarding the dermatologic system. Musculoskeletal: Circulation, motion, and sensation intact. Range of motion: intact in all extremities. 20:30 Reassessment: Patient appears in no apparent distress at this time. Patient and/or ao family updated on plan of care and expected duration. Pain level reassessed. Patient is alert, oriented x 3, equal unlabored respirations, skin warm/dry/pink. Waiting on room assignment. 20:46 Reassessment: Received an verbal order from Dr Barrientos to change levemir to Lantus 40 ao Units SQ. 21:40 Reassessment: Patient appears in no apparent distress at this time. Patient and/or ao family updated on plan of care and expected duration. Pain level reassessed. Patient is alert, oriented x 3, equal unlabored respirations, skin warm/dry/pink. Waiting on Solu-Medrol to be complete. Vital Signs: 18:11 BP 160 / 84; Pulse 78; Resp 17; Temp 97.4; Pulse Ox 99% on R/A; Weight 54.43 kg; Height aj 5 ft. 6 in. (168 cm); 19:30 BP 189 / 89; Pulse 73; Resp 16; Pulse Ox 100% ; ao 20:45 BP 186 / 96; Pulse 73; Resp 16; Pulse Ox 100% ; ao 21:40 BP 173 / 93; Pulse 71; Resp 16; Pulse Ox 99% on R/A; ao 18:11 Body Mass Index 19.29 (54.43 kg, 168 cm) ED Course: 18:07 Patient arrived in ED. mr 18:07 Vivian Moody DO is Private Physician. mr 18:10 Triage completed. aj 18:11 Arm band placed on left wrist. Patient placed in an exam room. aj 18:13 Luis Antonio Barrientos MD is Attending Physician. john 18:35 Initial lab(s) drawn, by me, sent to lab. Inserted saline lock: 22 gauge in right hj antecubital area, using aseptic technique. Blood collected. 18:46 CT Head Brain wo Cont In Process Unspecified. EDMS 18:46 Lb Tan LVN is Primary Nurse. em 19:12 Lab(s) recollected, by me, sent to lab. dh3 19:23 Patient has correct armband on for positive identification. Pulse ox on. NIBP on. ao 19:41 Kristin Malik MD is Hospitalizing Provider. john 20:[address] eh 20:46 CT completed. Patient tolerated procedure well. Patient moved back from CT. eh 22:07 No provider procedures requiring assistance completed. Patient admitted, IV remains in ao place. Administered Medications: 18:57 Drug: NS 0.9% 1000 ml Route: IV; Rate: 125 ml/hr; Site: right antecubital; iw 21:57 Follow up: IV Status: Infusion continued upon admission ao 18:57 Drug: fentaNYL (PF) 25 mcg Route: IVP; Site: right antecubital; iw 21:58 Follow up: Response: No adverse reaction ao 18:57 Drug: Zofran 4 mg Route: IVP; Site: right antecubital; iw 21:58 Follow up: Response: No adverse reaction ao 20:11 CANCELLED (Duplicate Order): Potassium Effervescent Tablet 25 mEq PO once; dissolve in john 4 ounces of water or juice 20:35 Drug: Potassium Effervescent Tablet 25 mEq Route: PO; ao 22:00 Follow up: Response: No adverse reaction ao 20:38 Drug: SOLU-Medrol 1000 mg Route: IVP; Site: right antecubital; ao 21:58 Follow up: Response: No adverse reaction; Infussion complete 100ml NS ao 20:38 Drug: Insulin Regular Human 10 units {Co-Signature: aa1 (Serena Kate RN).} Route: IVP; ao Site: right antecubital; 21:59 Follow up: Response: No adverse reaction ao 20:43 Not Given (Changed to lantus insulin): Levemir 100 unit/mL 40 units Sub-Q once ao 20:43 Drug: fentaNYL (PF) 25 mcg Route: IVP; Site: right antecubital; ao 22:01 Follow up: Response: No adverse reaction ao 20:47 Drug: Insulin Regular Human 10 units {Co-Signature: aa1 (Serena Kate RN).} Route: ao Sub-Q; Site: abdomen; 22:00 Follow up: Response: No adverse reaction ao 20:47 Drug: LanTUS 40 units Route: Sub-Q; Site: abdomen; ao 22:01 Follow up: Response: No adverse reaction; Blood sugar is lowered ao 21:38 Drug: Potassium Effervescent Tablet 25 mEq Route: PO; ao 22:00 Follow up: Response: No adverse reaction ao Intake: Outcome: 19:43 Decision to Hospitalize by Provider. john 22:20 Admitted to Med/surg accompanied by tech, room 206, with chart, Report called to henna Martinez RN 22:20 Condition: stable 22:20 Instructed on the need for admit. 22:36 Patient left the ED. ao Signatures: Dispatcher [employer] Alaina Braga, RN Luis Antonio Good MD MD cha Rivera, Maria mr Otto, Lb Pompa, RESIDENTIAL TREATMENT SPECIALIST RESIDENTIAL TREATMENT SPECIALIST Peri Keane, Higinio Burns RN, RN RN hj Ortiz, Alex, RN RN ao Herrera, Cyndy 3 Serena Kate RN aa1 Corrections: (The following items were deleted from the chart) 22:19 21:40 BP 173 / 9; Pulse 71bpm; Resp 16bpm; Pulse Ox 99% RA; ao ao
--- NOTE | 2018-05-26 19:43 | EDPHYS ---
Physician Documentation [facility] Name: Jonathan Agudelo Age: 77 yrs Sex: Male : 1940 Arrival Date: 05/26/2018 Time: 18:07 Bed 17 Private MD: Vivian Moody H ED Physician Luis Antonio Barrientos HPI: 05/26 18:33 This 77 yrs old Male presents to ER via Ambulatory with complaints of Headache.john 18:33 The patient complains of pain to the left uatsdin and right temporal area. The patient john describes the headache as constant. Onset: The symptoms/episode began/occurred 5 day(s) ago. Associated signs and symptoms: Pertinent positives: blurred vision. Severity of symptoms: At its worst the pain was moderate, in the emergency department the pain is unchanged. Headache History: Denies prior headaches. The symptoms are alleviated by nothing. The patient has not experienced similar symptoms in the past. Historical: - Allergies: 18:11 No Known Allergies; aj - Home Meds: 18:11 amlodipine 10 mg tab 1 tab once daily [Active]; Bentyl 20 mg Oral tab 3 times per day aj [Active]; carvedilol 6.25 mg Oral tab 1 tab 2 times per day [Active]; glimepiride 4 mg Oral tab BID [Active]; Lomotil 2.5-0.025 mg Oral tab 4 times per day for diarrhea [Active]; sodium bicarbonate 325 mg Oral tab 325 mg twice a day [Active]; - PMHx: 18:11 CVA; Diabetes - NIDDM; HTN; Prostate Cancer; Vision problem; aj - PSHx: 18:11 Prostate removed; aj - Immunization history:: Adult Immunizations up to date. - Social history:: Smoking status: Patient/guardian denies using tobacco. - Ebola Screening: : Patient negative for fever greater than or equal to 101.5 degrees Fahrenheit, and additional compatible Ebola Virus Disease symptoms Patient denies exposure to infectious person Patient denies travel to an Ebola-affected area in the 21 days before illness onset No symptoms or risks identified at this time. - Family history:: not pertinent. ROS: 18:33 Constitutional: Negative for fever, chills, and weight loss, ENT: Negative for injury, john pain, and discharge, Neck: Negative for injury, pain, and swelling, Cardiovascular: Negative for chest pain, palpitations, and edema, Respiratory: Negative for shortness of breath, cough, wheezing, and pleuritic chest pain, Abdomen/GI: Negative for abdominal pain, nausea, vomiting, diarrhea, and constipation, Back: Negative for injury and pain, : Negative for injury, bleeding, discharge, and swelling, MS/Extremity: Negative for injury and deformity, Skin: Negative for injury, rash, and discoloration, Neuro: Negative for headache, weakness, numbness, tingling, and seizure, Psych: Negative for depression, anxiety, suicide ideation, homicidal ideation, and hallucinations, Allergy/Immunology: Negative for hives, rash, and allergies, Endocrine: Negative for neck swelling, polydipsia, polyuria, polyphagia, and marked weight changes, Hematologic/Lymphatic: Negative for swollen nodes, abnormal bleeding, and unusual bruising. 18:33 Eyes: Positive for pain, visual disturbance. Exam: 18:33 Constitutional: This is a well developed, well nourished patient who is awake, alert, john and in no acute distress. Eyes: Pupils equal round and reactive to light, extra-ocular motions intact. Lids and lashes normal. Conjunctiva and sclera are non-icteric and not injected. Cornea within normal limits. Periorbital areas with no swelling, redness, or edema. ENT: Nares patent. No nasal discharge, no septal abnormalities noted. Tympanic membranes are normal and external auditory canals are clear. Oropharynx with no redness, swelling, or masses, exudates, or evidence of obstruction, uvula midline. Mucous membranes moist. Neck: Trachea midline, no thyromegaly or masses palpated, and no cervical lymphadenopathy. Supple, full range of motion without nuchal rigidity, or vertebral point tenderness. No Meningismus. Chest/axilla: Normal chest wall appearance and motion. Nontender with no deformity. No lesions are appreciated. Cardiovascular: Regular rate and rhythm with a normal S1 and S2. No gallops, murmurs, or rubs. Normal PMI, no JVD. No pulse deficits. Respiratory: Lungs have equal breath sounds bilaterally, clear to auscultation and percussion. No rales, rhonchi or wheezes noted. No increased work of breathing, no retractions or nasal flaring. Abdomen/GI: Soft, non-tender, with normal bowel sounds. No distension or tympany. No guarding or rebound. No evidence of tenderness throughout. Back: No spinal tenderness. No costovertebral tenderness. Full range of motion. Male : Normal genitalia with no discharge or lesions. Skin: Warm, dry with normal turgor. Normal color with no rashes, no lesions, and no evidence of cellulitis. MS/ Extremity: Pulses equal, no cyanosis. Neurovascular intact. Full, normal range of motion. Neuro: Awake and alert, GCS 15, oriented to person, place, time, and situation. Cranial nerves II-XII grossly intact. Motor strength 5/5 in all extremities. Sensory grossly intact. Cerebellar exam normal. Normal gait. Psych: Awake, alert, with orientation to person, place and time. Behavior, mood, and affect are within normal limits. 18:33 Head/face: Noted is tenderness, that is moderate, of the left uatsdin and left temporal area. Vital Signs: 18:11 BP 160 / 84; Pulse 78; Resp 17; Temp 97.4; Pulse Ox 99% on R/A; Weight 54.43 kg; Height aj 5 ft. 6 in. (168 cm); 19:30 BP 189 / 89; Pulse 73; Resp 16; Pulse Ox 100% ; ao 20:45 BP 186 / 96; Pulse 73; Resp 16; Pulse Ox 100% ; ao 21:40 BP 173 / 93; Pulse 71; Resp 16; Pulse Ox 99% on R/A; ao 18:11 Body Mass Index 19.29 (54.43 kg, 168 cm) MDM: 18:13 Patient medically screened. [facility] 18:37 Data reviewed: vital signs, nurses notes, lab test result(s), EKG, radiologic studies, [facility] CT scan. 05/26 18:33 Order name: CBC with Diff; Complete Time: 19:50 [facility] 05/26 18:33 Order name: Comprehensive Metabolic Panel; Complete Time: 20:01 [facility] 05/26 18:33 Order name: Sed Rate; Complete Time: 19:50 [facility] 05/26 18:33 Order name: CRP; Complete Time: 20:01 [facility] 05/26 19:32 Order name: Basic Metabolic Panel [facility] 05/26 19:32 Order name: Ckmb [facility] 05/26 18:33 Order name: CT Head Brain wo Cont; Complete Time: 19:28 [facility] 05/26 19:32 Order name: CPK [facility] 05/26 19:32 Order name: LFT's [facility] 05/26 19:32 Order name: Magnesium [facility] 05/26 19:32 Order name: NT PRO-BNP [facility] 05/26 19:32 Order name: PT-INR [facility] 05/26 19:32 Order name: Ptt, Activated [facility] 05/26 19:32 Order name: Troponin (emerg Dept Use Only) [facility] 05/26 19:32 Order name: Chest Single View XRAY [facility] 05/26 20:03 Order name: CT Stone Protocol [facility] 05/26 20:27 Order name: RAD EDDE 05/26 20:48 Order name: CT EDDE 05/26 18:33 Order name: EKG; Complete Time: 18:34 [facility] 05/26 18:33 Order name: EKG - Nurse/Tech; Complete Time: 19:18 [facility] 05/26 19:32 Order name: Cardiac monitoring; Complete Time: 21:59 [facility] 05/26 19:32 Order name: IV Saline Lock; Complete Time: 19:47 [facility] 05/26 19:32 Order name: Labs collected and sent; Complete Time: 20:45 [facility] 05/26 19:32 Order name: O2 Per Protocol; Complete Time: 19:48 [facility] 05/26 19:32 Order name: O2 Sat Monitoring; Complete Time: 19:48 [facility] 05/26 19:47 Order name: CONS Physician Consult [facility] 05/26 19:47 Order name: CONS Physician Consult EDDE Administered Medications: 18:57 Drug: NS 0.9% 1000 ml Route: IV; Rate: 125 ml/hr; Site: right antecubital; iw 21:57 Follow up: IV Status: Infusion continued upon admission ao 18:57 Drug: fentaNYL (PF) 25 mcg Route: IVP; Site: right antecubital; iw 21:58 Follow up: Response: No adverse reaction ao 18:57 Drug: Zofran 4 mg Route: IVP; Site: right antecubital; iw 21:58 Follow up: Response: No adverse reaction ao 20:11 CANCELLED (Duplicate Order): Potassium Effervescent Tablet 25 mEq PO once; dissolve in [facility] 4 ounces of water or juice 20:35 Drug: Potassium Effervescent Tablet 25 mEq Route: PO; ao 22:00 Follow up: Response: No adverse reaction ao 20:38 Drug: SOLU-Medrol 1000 mg Route: IVP; Site: right antecubital; ao 21:58 Follow up: Response: No adverse reaction; Infussion complete 100ml NS ao 20:38 Drug: Insulin Regular Human 10 units {Co-Signature: aa1 (Serena Kate RN).} Route: IVP; ao Site: right antecubital; 21:59 Follow up: Response: No adverse reaction ao 20:43 Not Given (Changed to lantus insulin): Levemir 100 unit/mL 40 units Sub-Q once ao 20:43 Drug: fentaNYL (PF) 25 mcg Route: IVP; Site: right antecubital; ao 22:01 Follow up: Response: No adverse reaction ao 20:47 Drug: Insulin Regular Human 10 units {Co-Signature: aa1 (Serena Kate RN).} Route: ao Sub-Q; Site: abdomen; 22:00 Follow up: Response: No adverse reaction ao 20:47 Drug: LanTUS 40 units Route: Sub-Q; Site: abdomen; ao 22:01 Follow up: Response: No adverse reaction; Blood sugar is lowered ao 21:38 Drug: Potassium Effervescent Tablet 25 mEq Route: PO; ao 22:00 Follow up: Response: No adverse reaction ao Disposition: 05/26/18 19:43 Hospitalization ordered by Kristin Malik for Inpatient Admission. Preliminary diagnosis are Headache, Vision sensitivity deficiencies, Arteritis, unspecified - temporal, Unspecified kidney failure - chronic, Type 2 diabetes mellitus - uncontrolled. - Bed requested for Telemetry/MedSurg (Inpatient). - Status is Inpatient Admission. ao - Condition is Fair. - Problem is new. - Symptoms have improved. UTI on Admission? No Signatures: Dispatcher [employer] Shobha Webber RN RN dw Myers, Amanda, RN RN aj Anderson, Corey, MD MD cha Williams, Irene, RN RN iw Ortiz, Alex, RN RN ao Alissa Kern RN aa1 Corrections: (The following items were deleted from the chart) 19:53 19:43 Hospitalization Ordered by Kristin Malik MD for Inpatient Admission. Preliminary dw diagnosis is Headache; Vision sensitivity deficiencies; Arteritis, unspecified - temporal. Bed requested for Telemetry/MedSurg (Inpatient). Status is Inpatient Admission. Condition is Fair. Problem is new. Symptoms have improved. UTI on Admission? No. john 20:05 19:53 05/26/2018 19:43 Hospitalization Ordered by Kristin Malik MD for Inpatient john Admission. Preliminary diagnosis is Headache; Vision sensitivity deficiencies; Arteritis, unspecified - temporal. Bed requested for Telemetry/MedSurg (Inpatient). Status is Inpatient Admission. Condition is Fair. Problem is new. Symptoms have improved. UTI on Admission? No. dw 20:11 20:01 Potassium Effervescent Tablet 25 mEq PO once; dissolve in 4 ounces of water or john juice ordered. john 22:35 19:32 Urine Dipstick-Ancillary ordered. [facility] ao 22:36 20:05 05/26/2018 19:43 Hospitalization Ordered by Kristin Malik MD for Inpatient ao Admission. Preliminary diagnosis is Headache; Vision sensitivity deficiencies; Arteritis, unspecified - temporal; Unspecified kidney failure - chronic; Type 2 diabetes mellitus - uncontrolled. Bed requested for Telemetry/MedSurg (Inpatient). Status is Inpatient Admission. Condition is Fair. Problem is new. Symptoms have improved. UTI on Admission? No. john
[2018-05-26 19:44] LABS: Absolute Lymphocytes (CBC) 0.6 K/uL (0.7-4.9); Absolute Monocytes 0.5 K/uL (0.1-1.3); Absolute Neutrophil 5.6 K/uL (1.8-8.0); Basophils % 0.9 % (0-1.3); Eosinophils % 1.4 % (0-4.4); Hematocrit 30.5 % (39.6-49.0); Lymphocytes % 9.2 % (15.3-44.8); MCH 29.8 pg (27.0-35.0); MCV 85.6 fL (80-100); MPV 10.1 fL (7.6-11.3); Monocytes % 7.7 % (3.3-12.3); RBC Red Blood Cell Count 3.57 M/uL (4.33-5.43)
[2018-05-26] MEDS ORDERED: GLUCAGON 1 MG/VIAL IM PRN ×3 (19:46→20:08)
[2018-05-26] MEDS ORDERED: D50W 25 GM/50 ML SYRINGE IV PRN ×2 (19:46→20:08)
[2018-05-26 19:52] LABS: ALT/SGPT 20 U/L (12-78); AST/SGOT 16 U/L (15-37); Albumin 2.7 g/dL (3.4-5.0); Alkaline Phosphatase 157 U/L (45-117); BUN Blood Urea Nitrogen 90 mg/dL (7-18); Bicarbonate 26 mmol/L (21-32); Bilirubin Total 0.3 mg/dL (0.2-1.0); C-Reactive Protein < 2.90 mg/L (<3.00); Potassium 3.1 mmol/L (3.5-5.1); Protein, Total 6.4 g/dL (6.4-8.2); Sodium Level 131 mmol/L (136-145)
[2018-05-26 20:00] LABS: Glucose Level 485 mg/dL (74-106)
[2018-05-26] MEDS ORDERED: NA CHLORIDE 0.9% 100 ML IV ONE (20:03)
[2018-05-26] MEDS ORDERED: WATER FOR INJ,STERILE 10 ML ONE (20:04)
[2018-05-26] MEDS ORDERED: POTASSIUM 25 MEQ EFFERV TAB ONE (20:21)
--- NOTE | 2018-05-26 20:27 | RAD REPORT ---
EXAM DESCRIPTION: [place] Single View05/26/2018 8:05 pm CLINICAL HISTORY: Cough COMPARISON: March 01, 2018 FINDINGS: The lungs appear clear of acute infiltrate. The heart is normal size IMPRESSION: No acute abnormalities displayed
[2018-05-26] MEDS ORDERED: INSULIN -REGULAR HUMAN 50 UNIT/0.5 ML ML ONE (20:29)
[2018-05-26] MEDS ORDERED: INSULIN GLARGINE 100 UNITS/ML SQ ONE (20:30)
[2018-05-26 20:42] LABS: Protime INR 0.98
--- NOTE | 2018-05-26 20:47 | RAD REPORT ---
EXAM DESCRIPTION: CT - Stone Protocol - 05/26/2018 8:31 pm CLINICAL HISTORY: Abdominal pain. Epigastric pain and nausea COMPARISON: January 2018 TECHNIQUE: Computed axial tomography of the abdomen pelvis was obtained without oral or IV contrast. Lack of IV and oral contrast limits evaluation of solid organs, bowel, and vessels. Coronal reformat annemarie images were obtained and reviewed. All CT scans are performed using dose optimization technique as appropriate and may include automated exposure control or mA/KV adjustment according to patient size. FINDINGS: A renal calculus is not seen. An ureteral calculus is not noted. A bladder calculus is not present. Small low-density areas within the kidneys are nonspecific without IV contrast but probably represent cysts The liver, spleen, pancreas and adrenals appear grossly normal There is no evidence of diverticulitis. The appendix appears normal A tiny umbilical hernia is present Postsurgical changes of a prostatectomy are seen The wall of the rectum is mildly thickened IMPRESSION: Negative for a genitourinary calculus The wall of the rectum is mildly thickened which could indicate a mass or incomplete distention. Digi kaylyn examination is recommended
[2018-05-26] MEDS ORDERED: ONDANSETRON 4 MG/2 ML VIAL IV PRN (20:55)
[2018-05-26] MEDS ORDERED: ACETAMINOPHEN 500 MG TAB PO PRN (20:55)
[2018-05-26] MEDS: CARVEDILOL 6.25 MG TAB PO SCH (21:00)
[2018-05-26] MEDS: NA CHLORIDE 0.9% 1,000 ML IV SCH ×2 (21:00→23:54)
[2018-05-26] MEDS ORDERED: INSULIN -REGULAR HUMAN 50 UNIT/0.5 ML ML SQ SCH ×2 (21:00)
[2018-05-26 21:15] LABS: ALT/SGPT 19 U/L (12-78); AST/SGOT 17 U/L (15-37); Albumin 2.7 g/dL (3.4-5.0); Alkaline Phosphatase 154 U/L (45-117); BUN Blood Urea Nitrogen 86 mg/dL (7-18); Bicarbonate 25 mmol/L (21-32); Bilirubin Direct < 0.1 mg/dL (0-0.2); Bilirubin Total 0.3 mg/dL (0.2-1.0); CKMB Creatine Kinase MB 4.2 ng/mL (0.3-3.6); Creatine Phosphokinase 98 U/L (39-308); Magnesium 2.6 mg/dL (1.8-2.4); NT PRO-BNP 36256 pg/mL (<450); Potassium 3.2 mmol/L (3.5-5.1); Protein, Total 6.5 g/dL (6.4-8.2); Sodium Level 134 mmol/L (136-145); Troponin (Emerg Dept Use Only) 0.19 ng/mL (0.0-0.045)
[2018-05-26 21:18] LABS: Glucose Level 452 mg/dL (74-106)
[2018-05-26] MEDS ORDERED: CARVEDILOL 6.25 MG TAB ONE (21:42)
[2018-05-26] MEDS: SODIUM BICARB 325 MG TAB PO SCH (23:51)
[2018-05-27] MEDS: D50W 25 GM/50 ML SYRINGE IV PRN (00:15)
[2018-05-27] MEDS ORDERED: FENTANYL CITR 100 MCG/2 ML IV PRN (00:56)
[2018-05-27 01:48] VITALS: BMI 19.3
[2018-05-27 05:42] LABS: Absolute Lymphocytes (CBC) 0.4 K/uL (0.7-4.9); Absolute Monocytes 0.1 K/uL (0.1-1.3); Absolute Neutrophil 7.3 K/uL (1.8-8.0); Basophils % 0.5 % (0-1.3); Hematocrit 30.7 % (39.6-49.0); Lymphocytes % 5.2 % (15.3-44.8); MCV 83.4 fL (80-100); MPV 9.8 fL (7.6-11.3); Monocytes % 0.9 % (3.3-12.3); RBC Red Blood Cell Count 3.68 M/uL (4.33-5.43)
[2018-05-27 06:04] LABS: Albumin 2.5 g/dL (3.4-5.0); Bilirubin Total 0.5 mg/dL (0.2-1.0); Magnesium 2.4 mg/dL (1.8-2.4); Phosphorus 3.6 mg/dL (2.5-4.9); Potassium 3.4 mmol/L (3.5-5.1); Protein, Total 6.2 g/dL (6.4-8.2)
[2018-05-27 08:09] LABS: Blood Morphology Comment NOT SEEN (NOT SEEN); Platelet Estimate ADEQ; Urine White Blood Cell Casts OK
[2018-05-27] MEDS: KCL 20 MEQ/100 mL IVPB 20 MEQ/100 ML BAG IV SCH ×2 (08:22→09:45)
[2018-05-27] MEDS ORDERED: AMLODIPINE 10 MG TAB PO SCH (09:00)
[2018-05-27] MEDS: NA CHLORIDE 0.9% 1,000 ML IV SCH (09:45)
[2018-05-27] MEDS: SODIUM BICARB 325 MG TAB PO SCH ×2 (09:46→22:04)
[2018-05-27] MEDS: CARVEDILOL 6.25 MG TAB PO SCH ×2 (09:46→22:05)
--- NOTE | 2018-05-27 09:57 | P.HP ---
Certification for Inpatient Patient admitted to: Inpatient With expected LOS: >2 Midnights Patient will require the following post-hospital care: None Practitioner: I am a practitioner with admitting privileges, knowledge of patient current condition, hospital course, and medical plan of care. Services: Services provided to patient in accordance with Admission requirements found in Title 42 Section 412.3 of the Code of Federal Regulations Patient History Date of Service: 05/26/18 Reason for admission: headache and blurred vision History of Present Illness: Patient is a 77-year-old gentleman who presents to the emergency room with persistent headache which has been going on for the last couple of days. The headache is gradually gotten much worse. Patient came into the emergency room because of the headache. He has also had poor vision but he states that the vision has been poor for quite a while. Patient also has a history of type 2 diabetes and hypertension. However, unfortunately patient does not take as good a job of himself. He did have some issues earlier this year which have resolved. He will be admitted to the hospital for further workup. Allergies No Known Allergies Allergy (Verified 05/27/18 01:24) Home Medications: Carvedilol [Coreg*] 6.25 mg PO BID #60 tab 01/18/18 Na Bicarb Tab [Sodium Bicarb 325 MG Tab*] 650 mg PO BID #120 tab 01/30/18 Glimepiride [Amaryl] 4 mg PO BID 03/01/18 Amoxicillin [Amoxil] 875 mg PO BID 05/26/18 Furosemide 80 mg PO BID 05/26/18 Sumatriptan [Imitrex*] 100 mg PO PRN PRN 05/26/18 - Past Medical/Surgical History Has patient received pneumonia vaccine in the past: Yes Diabetic: No -: HTN, rheumatoid arthritis; APA -: Aortic stenosis -: afib -: Chronic kidney disease -: prostate surgery - Family History Father Medical History: Lung disease - Social History Smoking Status: Former smoker Alcohol use: No CD- Drugs: No Place of Residence: Home Review of Systems 10-point ROS is otherwise unremarkable Physical Examination - Vital Signs Temperature: 97.4 F Blood Pressure: 139/76 Pulse: 97 Respirations: 18 Pulse Ox (%): 98 - Physical Exam General: Oriented x3, Oriented x2, Oriented x1, Cooperative HEENT: Atraumatic, Normocephalic, PERRLA, Mucous membr. moist/pink Neck: Supple, 2+ carotid pulse no bruit, JVD not distended, No Thyromegaly, No LAD Respiratory: Clear to auscultation bilaterally, Normal air movement, Diminished , Dull, Crackles/rales Cardiovascular: No edema, Normal pulses, Regular rate/rhythm, Abnormal S3, No murmurs Musculoskeletal: No clubbing, No swelling, No contractures Integumentary: No rashes Neurological: Normal tone, Sensation intact, Cranial nerves 3-12 intact, Normal reflexes 2+, Normal affect, Abnormal gait, Abnormal speech, Abnormal strength, Abnormal tone, Abnormal sensation Lymphatics: No axilla or inguinal lymphadenopathy Urinary: Dialysis catheter - Studies Laboratory Data (last 24 hrs) 05/26/18 19:08: Sodium 131 L, Potassium 3.1 L, BUN 90 H, Creatinine 5.30 H*, Glucose 485 H*, Total Bilirubin 0.3, AST 16, ALT 20, Alkaline Phosphatase 157 H 05/26/18 19:08: WBC 6.9, Hgb 10.6 L, Hct 30.5 L, Plt Count 231 Assessment & Plan - Plan Assessment: 1. rule out temporal arteritis 2. end-stage renal disease 3. History of type 2 diabetes 4. History of hypertension 5. Pain control Plan: 1. Aggressive IV hydration 2. nephrology consultation 3. Strict blood pressure and blood sugar control 4. pain control 5. Physical therapy evaluation 6. physical therapy as an outpatient 7. await culture results 8. GI and DVT prophylaxis - Advance Directives Does patient have a Living Will: No Does patient have a Durable POA for Healthcare: No - Code Status/Comfort Care Code Status Assessed: Yes Code Status: Full Code Critical Care: No Time Spent Managing PTS Care (In Minutes): 50
[2018-05-27] MEDS ORDERED: SUMATRIPTAN SUCCI 50 MG TAB PO PRN (11:44)
[2018-05-27] MEDS: INSULIN -REGULAR HUMAN 50 UNIT/0.5 ML ML SQ SCH ×3 (12:06→22:05)
[2018-05-27] MEDS: METHYLPREDNISOLONE 40 MG INJ IV SCH ×3 (12:07→23:37)
--- NOTE | 2018-05-27 12:10 | EKG ---
Test Date: 2018-05-26 Test Time: 19:12:19 Dyed Raw Stock Blower Feeder: LETICIA MEASUREMENT RESULTS: Intervals: Rate: 70 [place]: 172 QRSD: 164 QT: 496 QTc: 535 [place]: P: 44 [place]: 172 QRS: -60 T: 116 INTERPRETIVE STATEMENTS: Normal sinus rhythm Left axis deviation Left bundle branch block Abnormal ECG Compared to ECG 03/02/2018 08:22:46 No significant changes Electronically Signed On 05-27-18 12:07:31 CDT by Giovanni Nance
--- NOTE | 2018-05-27 15:07 | CON ---
Date of Consultation: 05/26/2018 Reason For Consultation: The patient needs temporal artery biopsy. History Of Present Illness: The patient is a 77-year-old gentleman, who presented to the emergency r oom with persistent headache and blurred vision. He states that the pain is worse on the left side. His headache is gradually gotten worse. He has poor vision and he has had that for quite some time. He does have other medical issues that he has not followed up with his physician and on the workup, I noticed this patient also has acute renal failure. He had a CT of the head which was unremarkable . His sed rate was elevated and his C-reactive protein was normal. The ER physician contacted me la night stating that he thinks the patient needs a temporal artery biopsy. He has spoken to Dr. Linden roland as well and I was consulted. There is no fever or chills. No chest pain. The patient is not on dialysis. Nephrology consult is pending. Review of Systems: Otherwise unremarkable. Past Medical History: Significant for hypertension, rheumatoid arthritis, aortic stenosis, atrial fi brillation, chronic kidney disease. Past Surgical History: Prostate surgery. Allergies: NO ALLERGIES. Social History: He use to smoke, does not currently. Does not drink alcohol. Family History: Significant for lung disease in the father. Physical Examination: Vital Signs: Stable. He is afebrile. General: He is awake, alert, and oriented x3. Speaks Urdu only. Head and Neck: Cranial nerves 2 through 12 are grossly within normal limits. There is some tenderne ss over the left temporal artery region. Throat clear. Neck is supple. Chest: Clear. Heart: S1, S2. Abdomen: Soft. Extremities: Neurovascularly intact. Neuro: Nonfocal. Laboratory Data: His potassium is 3.4, BUN is 86, creatinine is 4.8. GFR is 12. Glucose is 174. C -reactive protein is less than 2.9. Sedimentation rate is 67. White count is normal. He does have a slight left shift. Assessment: A 77-year-old gentleman with multiple medical problems with headache, elevated sedimenta tion rate, [id number] renal failure. Recommendation: At this point, I think we need further evaluation from the nephrology team to see wh at needs to be done about his renal status and I will be happy to do the temporal artery biopsy on Silvio segura as there is no pathology on the weekend. Plan of care was discussed with Dr. Molina and the sumaya alvarenga. Once we get clearances from nephrology team, we will schedule the surgery. The patient via t ranslator understands risks, benefits, alternatives, and agrees to proceed. /MODL Voice ID: [id number] Report ID: [id number]
--- NOTE | 2018-05-27 16:35 | PN ---
Subjective: The patient currently lying in bed. He looks comfortable. He has no chest pain. No ab dominal pain. Had a little bit of temporal pain on the left area. There is no blurred vision. Look s comfortable. No fever, no chills overnight. Review of Systems: Negative. Physical Examination: Vital Signs: Blood pressure 139/76, respiratory rate 18, pulse 97, temp 97.4. General: The patient is alert and oriented x3. Does not look in any distress. HEENT: Atraumatic, normocephalic. PERRLA. Oral mucosa is moist. Neck: Supple. No JVD. No carotid bruits. Chest: Clear to auscultation. Good air entry. Heart: Regular rate and rhythm. S1, S2 normal. No gallop, rub, or murmur. Abdomen: Soft, nontender. No masses. No hepatosplenomegaly. Positive bowel sounds. Extremities: No clubbing, no cyanosis, or edema. No calf tenderness. Neurologic: Grossly intact. Cranial nerve exam 2 through 12 intact. Normal sensation. Normal refl exes. Normal muscle strength. Laboratory Data: Today CBC within normal except for hemoglobin of 11. PT/INR was normal. Chemistry within normal except for potassium of 3.4, creatinine of 4.8, glucose 146 down from 152. Assessment And Plan: 1.Left temporal area headache. Rule out temporal arteritis. General surgery consult requested. patient was then seen by Dr. Kapoor and he will do a biopsy on Tuesday. We will continue him in the meantime on Solu-Medrol, the patient received 1 g in the emergency room. We will continue at 40 ever y 6 hours. The patient's pain is much better at this point. 2.End-stage renal disease, but he is not on dialysis. Nephrology consult requested. 3.Diabetes mellitus with uncontrolled diabetes. Glucose this morning continue insulin sl iding scale. Resume glyburide twice a day as before. 4.The patient was placed on by the emergency room physician as well. 5.Deep vein thrombosis prophylaxis. I will hold that for now. The patient is getting biopsy on Tue. We will try to ambulate the patient. 6.PT evaluation for discharge planning. 7.Hypertension. Continue patient on Coreg and on hydralazine p.r.n. for systolic blood pressure abo ve 160. DEBBIE/SCOOBY Voice ID: [id number] Report ID: [id number]
[2018-05-27] MEDS ORDERED: INSULIN GLARGINE 100 UNITS/ML SQ SCH (17:00)
[2018-05-27] MEDS: GLIMEPIRIDE 2 MG TABLET PO SCH (17:21)
[2018-05-27] MEDS: FUROSEMIDE 40 MG TABLET PO SCH (17:22)
--- NOTE | 2018-05-27 18:14 | CON ---
Date of Consultation: 05/27/2018 Additional Consulting Physician: Dr. Malik. Reason For Consultation: Elevated BUN creatinine. 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 Serology and SPEP, UPEP within alea l limit. The patient had difficulty to obtain transportation to be arrange for AV access creation. The patient been follow up closely with me in the office. The patient came to the hospital complaini ng from headache temporal area, throbbing-like or warm-like with blurred vision, started few days ago with some dizziness and nausea, for that reason, reported to the hospital, found to have elevated bl ood pressure. Start on treatment for temporal arteritis and plan for biopsy of the temporal artery. Found also to have elevated BUN and creatinine. For that reason, we have been consulted. The patie nt's GFR is around 12, which is around his baseline. Past Medical History: Include, 1.Diabetes, complicated with neuropathy and retinopathy status post laser, and nephropathy. 2.Hypertension. 3.CVA without residual. 4.Benign prostate hypertrophy, status post TURP. 5.Chronic kidney disease, stage 5, secondary to diabetes nephropathy. Nephrotic range of proteinuri a. Negative SPEP and UPEP and serology. Past Surgical History: Include TURP. Family History: Positive for hypertension and diabetes. Social History: Denies smoking, denies drinking, denies drugs abuse. Medications: Home medications include glimepiride, Lasix, amoxicillin, Imitrex, carvedilol, and sodi um bicarb. Current medications include carvedilol, fentanyl, glimepiride, hydralazine, insulin, Solu-Medrol 40 q .6, sodium bicarb oral, sumatriptan. Review of Systems: Head and Neck: Had headache. Has blurred vision. GI: Has nausea without any vomiting. : Has polyuria. No dysuria. No hematuria. PEWTER FINISHER: Not applicable. Respiratory: No shortness of breath. Cardiovascular: No chest pain. Neuro: Has decreased vision. Has temporal headache. Musculoskeletal: No joint pain. Endocrine: No polydipsia. Skin: No rash. Physical Examination: Vital Signs: When I saw the patient, blood pressure 139/76, pulse of 97. Afebrile. Chest: Clear to auscultation. Heart: S1, S2. Regular. Abdomen: Soft. Nontender. Extremities: No edema. Laboratory Data: H and H 08/11.7. Sodium 138, potassium 3.4, bicarb 27, BUN 86, creatinine 4.8, GFR of 12, calcium of 8, phosphorus 3.6, magnesium 2.4. Current medications the patient on, as above. Assessment And Plan: 1.Chronic kidney disease, stage 5, stable. No uremic symptoms. No hyperkalemia. No acidosis. I a m going to continue to monitor the patient. I do not see any urgency to initiate dialysis right now. We will continue to monitor if the kidney function gets worse. At that time, we will initiate dial ysis, especially the patient is going to be on steroid, so we may have consequences of elevation in B UN, at that time, we will have to initiate dialysis. I had discussion with the patient in the presen ce of the , discussing the case. He agreed and prefer not to start dialysis unless if it is of e mergent need, he is going to need the catheter placement. 2.Hypertension, controlled, optimal. Continue current medication. 3.Diabetes, as by primary. 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 The patient is going to undergo artery biopsy next Tuesday. The cruz ent started on steroid. We will send for ESR, and we will follow up the patient. 5.Acidosis. Continue sodium bicarb. Case discussed with the patient, verbalized understanding. Discussed with the staff, agreed on the p augusto. MEKHI/SCOOBY Voice ID: [id number] Report ID: [id number]
[2018-05-27 18:17] LABS: Urine Appearance CLEAR; Urine Bilirubin NEGATIVE (NEG); Urine Blood 1+ (NEG); Urine Color YELLOW; Urine Glucose 3+ (NEG); Urine Protein 3+ (NEG); Urine Urobilinogen 0.2 mg/dL (0.2-1.0); Urine pH 5.5 (5.0-7.0)
[2018-05-27 18:31] LABS: Urine Microscopic Reflex ORDER UMIC
[2018-05-27] MEDS: HYDRALAZINE HCL 20 MG/ML VIAL IV PRN (18:58)
[2018-05-27 19:11] LABS: Urine Amorphous Sediment 1+ /HPF (NONE SEEN); Urine Bacteria <20 /HPF (NONE SEEN); Urine Culture Reflex Order NOT NEEDED; Urine RBC <5 /HPF (NONE SEEN)
[2018-05-28] MEDS: D50W 25 GM/50 ML SYRINGE IV PRN (01:04)
[2018-05-28 05:05] LABS: Absolute Lymphocytes (CBC) 0.5 K/uL (0.7-4.9); Absolute Monocytes 0.6 K/uL (0.1-1.3); Absolute Neutrophil 14.1 K/uL (1.8-8.0); Basophils % 0.1 % (0-1.3); Hematocrit 27.5 % (39.6-49.0); Lymphocytes % 3.3 % (15.3-44.8); MCH 29.2 pg (27.0-35.0); MCV 84.8 fL (80-100); Monocytes % 3.8 % (3.3-12.3); RBC Red Blood Cell Count 3.25 M/uL (4.33-5.43)
[2018-05-28] MEDS: METHYLPREDNISOLONE 40 MG INJ IV SCH ×3 (05:20→18:35)
[2018-05-28 05:57] LABS: Albumin 2.5 g/dL (3.4-5.0); Bilirubin Total 0.3 mg/dL (0.2-1.0); Phosphorus 4.1 mg/dL (2.5-4.9); Potassium 3.4 mmol/L (3.5-5.1); Protein, Total 5.9 g/dL (6.4-8.2); Thyroid Stimulating Hormone 0.293 uIU/mL (0.360-3.740)
[2018-05-28] MEDS ORDERED: POTASSIUM 25 MEQ EFFERV TAB PO ONE (06:24)
[2018-05-28] MEDS: SODIUM BICARB 325 MG TAB PO SCH ×2 (09:21→20:52)
[2018-05-28] MEDS: GLIMEPIRIDE 2 MG TABLET PO SCH ×2 (09:21→16:37)
[2018-05-28] MEDS: FUROSEMIDE 40 MG TABLET PO SCH (09:21)
[2018-05-28] MEDS: CARVEDILOL 6.25 MG TAB PO SCH ×2 (09:22→20:52)
[2018-05-28] MEDS: INSULIN -REGULAR HUMAN 50 UNIT/0.5 ML ML SQ SCH ×4 (09:28→20:54)
[2018-05-28] MEDS ORDERED: CEFAZOLIN/SWI 1gm 1 GM/10 ML SYR IV SCH (10:00)
--- NOTE | 2018-05-28 15:06 | PN ---
Date of Progress Note: 05/28/2018 Subjective: The patient is awake, alert, no complaint. Vital signs stable, afebrile. Laboratory Data: Reviewed. Dr. Ashraf's consult reviewed. Physical Examination: No significant change. Assessment: Acute on chronic renal failure and left-sided headache, rule out temporal arteritis. Recommendations: We will go and schedule the patient for left temporal artery biopsy. Should he agr ee to dialysis, we can do a Tesio catheter at the same time. Plan of care was discussed with the pat ient and family via meeting coordinator. They understand risks, benefits, and alternatives and agrees to proc edure. /MODL Voice ID: [id number] Report ID: [id number]
--- NOTE | 2018-05-28 18:15 | PN ---
Subjective: The patient lying in bed. He looks comfortable. His at the bedside. His headache almost totally resolved. No fever or chills overnight. No chest pain. No abdominal pain. Eating well. Getting ready for biopsy tomorrow. Physical Examination: Vital Signs: Currently, blood pressure 165/75, respiratory rate 16, pulse 79, temperature 96.8. General: The patient is alert and oriented x3. Does not look in any distress. He is speaking Spani sh. HEENT: Atraumatic, normocephalic. PERRLA. Mucosa is moist. Neck: Supple. No JVD. No bruits. Chest: Clear to auscultation. Good air entry. Heart: Regular rate and rhythm. S1, S2 normal. No gallop or murmur. Abdomen: Soft, nontender. No masses. No hepatosplenomegaly. Positive bowel sounds. Extremities: No clubbing, no cyanosis, or edema. No calf tenderness. Neuro: Grossly intact. Laboratory Data: Today, CBC with white blood cells 15.2, hemoglobin 9.5, platelet 218. Chemistry wi thin normal except for , creatinine 5, BUN of 95, glucoses in the range of 36-40. Total pr otein of 5.9. TSH of 0.293. ESR down to 53. Assessment And Plan: 1.Left temporal area headache, rule out temporal arteritis. Surgery consult was requested. Dr. Chuck estrada will proceed with biopsy tomorrow in the OR. The patient on Solu-Medrol and his ESR continued to trend down. The patient currently asymptomatic. 2.End-stage renal disease. Appreciate Nephrology note. Apparently, the patient is stable. There is no need for hemodialysis at this point. Workup for end-stage renal being done by Nephrology. 3.Diabetes mellitus with erratic blood glucose. The patient had severe hypoglycemia this morning wi th glucose of 39. We will decrease his Lantus to 30 units at nighttime and continue glyburide. 4.Deep vein thrombosis prophylaxis, on hold for now given the patient is getting the dialysis tomorr ow. 5.Hypertension. The patient on Coreg and hydralazine. Blood pressure today is somewhat better. 6.Leukocytosis most likely secondary to IV Solu-Medrol. 7.Anemia most likely secondary to renal insufficiency and chronic inflammation. 8.Diabetes, very uncontrolled with hemoglobin A1c around 15.6. The patient understands risk of perip heral vascular disease, coronary artery disease. He will need close followup with primary care physi eunice to get that under control. 9.Hypokalemia. We will replace today. DEBBIE/SCOOBY Voice ID: [id number] Report ID: [id number]
[2018-05-28] MEDS: HYDRALAZINE HCL 20 MG/ML VIAL IV PRN (18:35)
--- NOTE | 2018-05-28 18:45 | PN ---
Date of Progress Note: 05/28/2018 The patient's headache has been subsided significantly. The patient is schedule for temporal artery biopsy tomorrow. No nausea, no vomiting. Physical Examination: Vital Signs: Blood pressure 165/75, pulse of 79, afebrile. Chest: Clear to auscultation. Heart: S1, S2. Regular. Extremities: No edema. Laboratory Data: WBC 15.2, H and H of 9.5/27.5, platelets of 218. Sodium 140, potassium 3.4, bicarb 26, BUN 95 rising, creatinine 5, GFR of 11, calcium 8.1, phosphorous 4.1. Medications: Current medications the patient on include, Lasix 40 b.i.d., carvedilol, cefazolin, gli mepiride, hydralazine p.r.n., methylprednisone, sumatriptan. Assessment And Plan: 1.Chronic kidney disease stage 5, stable, nonoliguric. Normal volume. Looks to me to the dry side. I am going to go ahead and discontinue the Lasix to once a day. We will monitor. He has severe di sproportionate BUN and creatinine could be secondary to the steroid. We will follow up, even though that elevation of BUN does not have any symptoms mostly secondary to the steroid. Anyhow, we had danielle g discussion with the patient. If BUN continued to rise or showing any uremic symptoms, the patient will need to start on dialysis. The patient is in agreement with that. We will follow up. 2.Hypertension, controlled, not optimal. We will decrease the Lasix. I am going to go ahead and in crease beta-bria, and we will place the patient on maintenance of hydralazine. We will follow up. We will keep avoiding any NILDA inhibitor or ARB. 3.Temporal arteritis. Continue Solu-Medrol. Plan for biopsy tomorrow. 4.Hypokalemia. I am not going to be supplement the potassium for today given the advance kidney disease. We will continue to monitor. MEKHI/SCOOBY Voice ID: [id number] Report ID: [id number]
[2018-05-29] MEDS: METHYLPREDNISOLONE 40 MG INJ IV SCH ×5 (00:41→23:36)
[2018-05-29 05:44] LABS: Phosphorus 6.6 mg/dL (2.5-4.9); Potassium 4.3 mmol/L (3.5-5.1)
[2018-05-29] MEDS: INSULIN -REGULAR HUMAN 50 UNIT/0.5 ML ML SQ SCH ×4 (07:30→22:29)
[2018-05-29] MEDS: GLIMEPIRIDE 2 MG TABLET PO SCH ×2 (08:00→17:14)
[2018-05-29] MEDS: INSULIN GLARGINE 100 UNITS/ML SQ SCH (08:00)
[2018-05-29] MEDS: CARVEDILOL 6.25 MG TAB PO SCH ×2 (08:58→22:29)
[2018-05-29] MEDS: SODIUM BICARB 325 MG TAB PO SCH ×2 (09:00→22:29)
[2018-05-29] MEDS: FUROSEMIDE 40 MG TABLET PO SCH (09:00)
[2018-05-29] MEDS ORDERED: BUPIVACAINE 0.5% PF 10 ML VIAL ONE (09:11)
[2018-05-29] MEDS ORDERED: NA CHLORIDE 0.9% 500 ML ONE (09:16)
[2018-05-29] MEDS ORDERED: LIDOCAINE 2% MPF 5 ML VIAL ONE ×2 (09:35→12:14)
[2018-05-29] MEDS ORDERED: PROPOFOL 200 MG/20 ML VIAL IV ONE ×4 (09:35→12:14)
[2018-05-29] MEDS ORDERED: MIDAZOLAM HCL 2 MG/2 ML INJ ONE ×2 (09:35→12:14)
[2018-05-29] MEDS ORDERED: FENTANYL CITR 100 MCG/2 ML ONE ×2 (09:35→12:14)
[2018-05-29] MEDS: CEFAZOLIN/SWI 1gm 1 GM/10 ML SYR ONE ×2 (09:44→09:52)
--- NOTE | 2018-05-29 10:46 | P.OP ---
Preoperative diagnosis: R/O Temporal Arteritis, L sided headache Postoperative diagnosis: same Primary procedure: Left Temporal Artery Biopsy , doppler aided Anesthesia: MAC Estimated blood loss: min Specimen: Left Temporal Artery Findings: as above Complications: None Transferred to: Recovery Room Condition: Good
--- NOTE | 2018-05-29 13:04 | P.PN ---
Subjective Date of Service: 05/29/18 Chief Complaint: headache and blurred vision Patient seen and examined at bedside with RN. Case discussed with patient at bedside and general surgery. Currently patient is scheduled for a biopsy this morning. Review of Systems 10-point ROS is otherwise unremarkable Physical Examination - Vital Signs Temperature: 98.3 F Blood Pressure: 160/72 Pulse: 74 Respirations: 16 Pulse Ox (%): 97 - Physical Exam General: Alert, In no apparent distress HEENT: Atraumatic, PERRLA, EOMI Neck: Supple, JVD not distended Respiratory: Clear to auscultation bilaterally, Normal air movement Cardiovascular: Regular rate/rhythm, Normal S1 S2 Gastrointestinal: Normal bowel sounds, No tenderness Musculoskeletal: No tenderness Integumentary: No rashes Neurological: Normal speech, Normal tone, Normal affect Lymphatics: No axilla or inguinal lymphadenopathy - Studies Medications List Reviewed: Yes Assessment And Plan - Plan Assessment and Plan: 1. Left temporal area headache, rule out temporal arteritis. -Surgery consult was requested. Dr. Kapoor will proceed with biopsy today in the OR. -The patient on Solu-Medrol and his ESR continued to trend down. -The patient now asymptomatic. 2. End-stage renal disease. -Appreciate Nephrology Reccs. -There is no need for hemodialysis at this point. -Workup for end-stage renal being done by Nephrology. 3. Diabetes mellitus with erratic blood glucose. Uncontrolled with Kidney Complication -hemoglobin A1c around 15.6. -Stable Now. -Continue to monitor 5.Hypertension. -The patient on Coreg and hydralazine. 6.Leukocytosis most likely secondary to IV Solu-Medrol. 7.Anemia most likely secondary to renal insufficiency and chronic inflammation. Dispo: Currently awaiting clinical improvement. Will wait for temporal artery biopsy. Will follow up with patient 24hr for anticipated discharge Discharge Plan: Home Plan to discharge in: 48 Hours - Code Status/Comfort Care Code Status Assessed: Yes Critical Care: No
[2018-05-29 23:20] VITALS: O2SAT 98
--- NOTE | 2018-05-29 23:30 | OP ---
Date of Procedure: 05/29/2018 Surgeon: Estiven Kapoor MD Preoperative Diagnosis: Left-sided headache, rule out temporal arteritis. Postoperative Diagnosis: Left-sided headache, rule out temporal arteritis. Procedure: Left temporal artery biopsy, Doppler aided. Estimated Blood Loss: Minimal. Specimens: Left temporal artery. Findings: As above. Anesthesia: MAC. Complications: None. Disposition: The patient tolerated the procedure in stable condition and was taken to recovery in go od general condition. Procedure In Detail: The patient was brought to the OR and placed in supine position. MAC anesthesi a was begun. The patient was prepped and draped in usual sterile fashion. Marcaine 0.5% was infiltr ated locally. Then, 15-blade used to make a 4-cm incision, where Doppler device was used to identify the left temporal artery just anterior and superior to the left ear and then this 4 cm incision was extended through the subcutaneous tissue. Temporal artery was identified proximal and distal. Contr ol was obtained. There was a lateral branch which was also isolated and then approximately a 4 cm se gment of the left temporal artery was excised and sent to Pathology and then 4-0 silk was used to tie off the ends. Wound was irrigated and bleeding controlled with cautery and 4-0 chromic was used to approximate the subcutaneous tissue and close the skin. Sterile dressing was applied. The patient was awakened and taken to Recovery in good general condition. /MODL Voice ID: [id number] Report ID: [id number]
--- NOTE | 2018-05-30 02:44 | PN ---
Date of Progress Note: 05/29/2018 Chief Complaint: Chronic kidney disease. History Of Present Illness: The patient has advanced chronic kidney disease stage 5. Currently, he was taken off diuretics to prevent prerenal azotemia. The patient denies complaints today. Review of Systems: Respiratory: Denies PND, orthopnea. Cardiovascular: Denies chest pain or palpitations. Gastrointestinal: Denies nausea or vomiting. Physical Examination: Vital Signs: Blood pressure is 175/75, heart rate 79. Lungs: Clear to auscultation bilaterally. Heart: S1 and S2. Abdomen: Soft, benign. Extremities: Minimal edema. Laboratory Data: Sodium 140, potassium 3.4, bicarbonate 26, BUN 91, creatinine 5.0, calcium 8.1, and phosphorus 4.1. Impression And Plan: 1.Chronic kidney disease. Advanced stage of chronic kidney disease with stage 5. The patient remai ns nonoliguric and asymptomatic. Does not have uremic symptomatology, although the patient will need to start dialysis. There is a progressively worse azotemia. Lasix was stopped because of prerenal azotemia. The patient will continue blood pressure medication. Beta-bria was increased, and the plan is to avoid NILDA inhibitor and angiotensin receptor bria. 2.Temporal arteritis. The patient is on Solu-Medrol and had a biopsy for temporal arteritis. 3.Hypokalemia. The patient received some supplementation. Lab work was re-evaluated to rule out pe rsistent hypokalemia. The patient has history of diabetes. Monitor blood glucose. Adjust ALBERTA. 4.Hyperphosphatemia. Phosphorus is 6.6, and plan is to start renal diet and binders. DENA/MODJakob Voice ID: [id number] Report ID: [id number]
[2018-05-30] MEDS: HYDRALAZINE HCL 20 MG/ML VIAL IV PRN (03:49)
[2018-05-30] MEDS: METHYLPREDNISOLONE 40 MG INJ IV SCH ×2 (05:16→12:16)
[2018-05-30 05:51] LABS: Albumin 2.6 g/dL (3.4-5.0); Phosphorus 5.4 mg/dL (2.5-4.9); Potassium 3.6 mmol/L (3.5-5.1)
[2018-05-30] MEDS: INSULIN -REGULAR HUMAN 50 UNIT/0.5 ML ML SQ SCH ×2 (07:30→11:30)
[2018-05-30] MEDS: INSULIN GLARGINE 100 UNITS/ML SQ SCH (08:00)
[2018-05-30] MEDS ORDERED: POTASSIUM 25 MEQ EFFERV TAB PO ONE (09:00)
[2018-05-30] MEDS: GLIMEPIRIDE 2 MG TABLET PO SCH (10:03)
[2018-05-30] MEDS: FUROSEMIDE 40 MG TABLET PO SCH (10:04)
[2018-05-30] MEDS: SEVELAMER CARBONATE 800 MG TABLET PO SCH ×2 (10:04→12:16)
[2018-05-30] MEDS: CARVEDILOL 6.25 MG TAB PO SCH (10:04)
[2018-05-30] MEDS: SODIUM BICARB 325 MG TAB PO SCH (10:05)
[2018-05-30 12:18] VITALS: BP 174/81; TEMP 97.8
[2018-05-30 13:35] LABS: Hepatitis C Virus RNA (PCR)log <1.18 log IU/mL
--- NOTE | 2018-05-30 15:06 | P.DS ---
Admission Date: 05/26/18 Discharge Date: 05/30/18 Disposition: ROUTINE DISCHARGE Discharge Condition: GOOD Reason for Admission: headache and blurred vision Consultations: General surgery Nephrology Procedures: Temporal artery biopsy Brief History of Present Illness: Patient is a 77-year-old gentleman who presents to the emergency room with persistent headache which has been going on for the last couple of days. The headache is gradually gotten much worse. Patient came into the emergency room because of the headache. He has also had poor vision but he states that the vision has been poor for quite a while. Patient also has a history of type 2 diabetes and hypertension. However, unfortunately patient does not take as good a job of himself. He did have some issues earlier this year which have resolved. He will be admitted to the hospital for further workup. Hospital Course: Discharge diagnosis 1. Headache persistent 2. Hypertension 3. Blurry vision 4. Temporal arteritis 5. Chronic kidney disease with acute kidney injury 6. Hyperglycemia Hospital course Overall during the hospital stay patient remained stable The patient was initially admitted to the hospital for recurrent headaches and high blood pressure. Patient had general surgery consulted on the case for possibility of temporal arteritis and need for temporal artery biopsy. Patient went through the biopsy and was initially started with IV steroids here in the hospital. Patient had improvement in his headache while here in the hospital on steroids and status post biopsy was discharged home under stable condition. Patient tolerated the procedure well and was doing well overall. Patient ambulated well and was tolerating his diet well postprocedure as well. Of note patient also has chronic kidney disease while on acute kidney injury. Nephrology was consulted who agreed with the plan of medical management at this time. Patient is to continue taking his Lasix 80 mg and Coreg that he takes at home along with sodium bicarb. Patient then was discharged home under stable condition was asked to follow up with general surgery and nephrology in about 1- 2 weeks post discharge. Patient was also asked to make an appointment with his primary care provider to follow up with the biopsy results. Patient demonstrated understanding and thus was discharged home under stable condition Vital Signs/Physical Exam: Temp Pulse Resp BP Pulse Ox 97.8 F 84 18 174/81 H 97 05/30/18 12:00 05/30/18 12:00 05/30/18 12:00 05/30/18 12:00 05/30/18 12:00 General: Alert, In no apparent distress HEENT: Atraumatic, PERRLA, EOMI Neck: Supple, JVD not distended Respiratory: Clear to auscultation bilaterally, Normal air movement Cardiovascular: Regular rate/rhythm, Normal S1 S2 Gastrointestinal: Normal bowel sounds, No tenderness Musculoskeletal: No tenderness Integumentary: No rashes Neurological: Normal speech, Normal tone, Normal affect Lymphatics: No axilla or inguinal lymphadenopathy Laboratory Data at Discharge: WBC 15.2 K/uL (4.3-10.9) H D 05/28/18 04:40 Hgb 9.5 g/dL (13.6-17.9) L 05/28/18 04:40 Hct 27.5 % (39.6-49.0) L 05/28/18 04:40 Plt Count 218 K/uL (152-406) 05/28/18 04:40 PT 11.6 SECONDS (9.5-12.5) 05/26/18 20:11 INR 0.98 05/26/18 20:11 APTT 30.8 SECONDS (24.3-36.9) 05/26/18 20:11 Sodium 135 mmol/L (136-145) L 05/30/18 04:35 Potassium 3.6 mmol/L (3.5-5.1) 05/30/18 04:35 BUN 101 mg/dL (7-18) H 05/30/18 04:35 Creatinine 4.80 mg/dL (0.55-1.3) H 05/30/18 04:35 Glucose 128 mg/dL (74-106) H 05/30/18 04:35 Phosphorus 5.4 mg/dL (2.5-4.9) H 05/30/18 04:35 Magnesium 2.4 mg/dL (1.8-2.4) 05/27/18 04:57 Total Bilirubin 0.3 mg/dL (0.2-1.0) 05/28/18 04:40 AST 17 U/L (15-37) 05/28/18 04:40 ALT 18 U/L (12-78) 05/28/18 04:40 Alkaline Phosphatase 85 U/L (45-117) 05/28/18 04:40 Home Medications: Carvedilol [Coreg*] 6.25 mg PO BID #60 tab 01/18/18 Na Bicarb Tab [Sodium Bicarb 325 MG Tab*] 650 mg PO BID #120 tab 01/30/18 Glimepiride [Amaryl] 4 mg PO BID 03/01/18 Furosemide 80 mg PO BID 05/26/18 Sevelamer Carbonate [Renvela*] 800 mg PO TIDWM #90 tablet 05/30/18 predniSONE [Prednisone] 40 mg PO DAILY #60 tablet 05/30/18 New Medications: predniSONE [Prednisone] 40 mg PO DAILY #60 tablet Sevelamer Carbonate [Renvela*] 800 mg PO TIDWM #90 tablet Patient Discharge Instructions: Wound care instructions: 1. Keep Seri Strips on at all times. 2. May shower in two days. Please f.u with Dr Kapoor and Dr Moody in 1 to 2 days post discharge. . New medication. Prednisone 40mg daily for total of 4 weeks or until symptoms resolved. After which you will need to be on a tapering dose as directed by your PCP. Stop taking. Amoxicillin and Sumatriptan Diet: Regular Activity: Ad jose elias Followup: Vivian Moody DO, DO [Primary Care Provider] - 1-2 Days Estiven Kapoor MD [ACTIVE - CAN ADMIT] - 1-2 Days
== END 2018-05-30 14:50 | disposition home or self-care (01) | DRG 515 ==
LOC: ER 18:04 → ERHOLD 19:44 → 2ND 22:20
PROVIDERS: ADMIT Hospitalist; ATTEND Family Medicine
PROC: 03BT0ZX Excision of Left Temporal Artery, Open Approach, Diagnostic (ICD-10-PCS; principal; 2018-05-29 11:15)
DX: M31.6 Other giant cell arteritis (principal); N18.6 End stage renal disease; E87.2 Acidosis; I12.0 Hypertensive chronic kidney disease with stage 5 chronic kidney disease or end stage renal disease; N17.9 Acute kidney failure, unspecified; M06.9 Rheumatoid arthritis, unspecified; I48.91 Unspecified atrial fibrillation; E11.22 Type 2 diabetes mellitus with diabetic chronic kidney disease; E11.65 Type 2 diabetes mellitus with hyperglycemia; E11.40 Type 2 diabetes mellitus with diabetic neuropathy, unspecified; E11.319 Type 2 diabetes mellitus with unspecified diabetic retinopathy without macular edema; D64.9 Anemia, unspecified; E87.6 Hypokalemia; E83.39 Other disorders of phosphorus metabolism; Z87.891 Personal history of nicotine dependence; Z99.2 Dependence on renal dialysis
CPT/HCPCS: 36415; 70450; 71045; 74176; 76377; 80048; 80053; 80069; 80076; 81003; 81015; 82550; 82553; 82570; 82962; 83036; 83735; 83880; 83970; 84100; 84132; 84156; 84443; 84484; 85025; 85610; 85652; 85730; 86140; 86317; 86704; 86706; 87522; 88305; 93005; 96361; 96372; 96374; 96375; 97163; 99285; J0360; J0690; J2250; J2405; J2920; J2930; J3010; J7030

== ENCOUNTER 2018-06-13 06:42 | Emergency (ER) | payer OTHER ==
[2018-06-13 07:44] LABS: Absolute Lymphocytes (CBC) 0.5 K/uL (0.7-4.9); Absolute Neutrophil 8.5 K/uL (1.8-8.0); Basophils % 0.8 % (0-1.3); Eosinophils % 0.3 % (0-4.4); Hematocrit 31.5 % (39.6-49.0); Lymphocytes % 5.3 % (15.3-44.8); MCH 29.7 pg (27.0-35.0); MCV 84.6 fL (80-100); MPV 10.4 fL (7.6-11.3); Monocytes % 10.2 % (3.3-12.3); RBC Red Blood Cell Count 3.72 M/uL (4.33-5.43)
--- NOTE | 2018-06-13 07:55 | RAD REPORT ---
EXAM DESCRIPTION: CT - Head Brain Wo Cont - 06/13/2018 7:40 am CLINICAL HISTORY: Headache COMPARISON: 05/16/2018 TECHNIQUE: Computed axial tomography of the head was obtained. IV contrast was not requested. All CT scans are performed using dose optimization technique as appropriate and may include automated exposure control or mA/KV adjustment according to patient size. FINDINGS: An intracranial bleed is not seen . The ventricles are normal in caliber. No extra-axial fluid collection is noted. Fluid within the sinuses/ mastoids is not seen. IMPRESSION: No acute intracranial abnormality is seen. If patient's symptoms persist MRI of the bra in would be recommended.
[2018-06-13] MEDS ORDERED: INSULIN -REGULAR HUMAN 50 UNIT/0.5 ML ML ONE (08:03)
[2018-06-13 08:10] LABS: Potassium 2.9 mmol/L (3.5-5.1)
[2018-06-13] MEDS ORDERED: FENTANYL CITR 100 MCG/2 ML ONE (08:16)
[2018-06-13] MEDS ORDERED: POTASSIUM CL SA 10 MEQ TAB PO ONE (08:18)
[2018-06-13] MEDS ORDERED: DIAZEPAM 10 MG/2 ML INJ SYRINGE ONE (09:11)
--- NOTE | 2018-06-13 09:39 | ER ---
Nurse's Notes [facility] Name: Jonathan Agudelo Age: 77 yrs Sex: Male : 1940 Arrival Date: 06/13/2018 Time: 06:50 Bed 23 Private MD: Diagnosis: Hyperglycemia, unspecified;Chronic kidney disease (CKD);Hypokalemia;Muscle spasm of calf Presentation: 06/13 07:13 Presenting complaint: Patient states: pain to the base of skull and back of neck x "a ss couple days". Pt also c/o pain to bilateral feet that is constant. Pt is supposed to begin dialysis soon. Transition of care: patient was not received from another setting of care. Onset of symptoms is unknown. Risk Assessment: Do you want to hurt yourself or someone else? Patient reports no desire to harm self or others. Initial Sepsis Screen:. Care prior to arrival: None. 07:13 Method Of Arrival: Ambulatory ss 07:13 Acuity: AAMIR 3 ss 07:34 Initial Sepsis Screen: Does the patient meet any 2 criteria? No. Patient's initial ed1 sepsis screen is negative. Does the patient have a suspected source of infection? No. Patient's initial sepsis screen is negative. Historical: - Allergies: 07:21 No Known Allergies; ss - PMHx: 07:21 CVA; Diabetes - NIDDM; HTN; Prostate Cancer; Vision problem; ESRD; ss - PSHx: 07:21 Prostate removed; ss - Immunization history:: Pneumococcal vaccine is not up to date, Flu vaccine is not up to date. - Social history:: Smoking status: Patient/guardian denies using tobacco, the patient reports quitting approximately 15 years ago. - Ebola Screening: : Patient denies exposure to infectious person Patient denies travel to an Ebola-affected area in the 21 days before illness onset. Screenin:37 Abuse screen: Denies threats or abuse. Denies injuries from another. Nutritional ed1 screening: No deficits noted. Tuberculosis screening: No symptoms or risk factors identified. Fall Risk No fall in past 12 months (0 pts). No secondary diagnosis (0 pts). IV access (20 points). Ambulatory Aid- None/Bed Rest/Nurse Assist (0 pts). Gait- Weak (10 pts.). Mental Status- Oriented to own ability (0 pts). Total Collier Fall Scale indicates Low Risk Score (25-44 pts). Fall prevention measures have been instituted. Side Rails Up X 2 Frequent Obs/Assesments occuring Family Present and informed to notify staff if they need to leave bedside As available Patient and Family Educated on Fall Prevention Program and strategies. Assessment: 07:34 General: Appears uncomfortable, Behavior is calm, cooperative. Pain: Complains of pain ss in base of the skull and neck. 07:37 Pain: Pain does not radiate. Pain currently is 7 out of 10 on a pain scale. Quality of ed1 pain is described as aching, Pain began "a couple of days ago" Is continuous, Current management - is no interventions. Neuro: Level of Consciousness is awake, alert, obeys commands, Oriented to person, place, time, situation, Screen Repairer Crusher are equal bilaterally Moves all extremities. Weakness Gait is steady, Speech is normal, Facial symmetry appears normal, Pupils are PERRLA, Intact Denies blurred vision dizziness, headache photophobia. Cardiovascular: Denies chest pain, Heart tones S1 S2 present Capillary refill < 3 seconds in bilateral fingers Chest pain is denied. Respiratory: Airway is patent Respiratory effort is even, unlabored, Respiratory pattern is regular, symmetrical, Breath sounds are clear bilaterally. Denies cough, shortness of breath. GI: Abdomen is flat, non-distended, Bowel sounds present X 4 quads. Abd is soft and non tender X 4 quads. Reports nausea, Patient currently denies diarrhea, vomiting. : No signs and/or symptoms were reported regarding the genitourinary system. EENT: No signs and/or symptoms were reported regarding the EENT system. Derm: Skin is fragile, is thin, with poor turgor Skin is dry, Skin is normal, Skin temperature is warm. Musculoskeletal: Circulation, motion, and sensation intact. Range of motion: intact in all extremities. 07:40 General: The previous assessment is accurate. Call light remains within reach. . ss 07:48 Reassessment: Patient appears in no apparent distress at this time. No changes from ed1 previously documented assessment. Patient and/or family updated on plan of care and expected duration. Pain level reassessed. Patient is alert, oriented x 3, equal unlabored respirations, skin warm/dry/pink. Pt returned from CT. 08:59 Reassessment: Patient appears in no apparent distress at this time. Patient and/or ed1 family updated on plan of care and expected duration. Pain level reassessed. Patient is alert, oriented x 3, equal unlabored respirations, skin warm/dry/pink. Pt reports a decrease in pain in the head. 10:01 Reassessment: Patient appears in no apparent distress at this time. Patient and/or ed1 family updated on plan of care and expected duration. Pain level reassessed. Patient is alert, oriented x 3, equal unlabored respirations, skin warm/dry/pink. Patient states feeling better. Patient states symptoms have improved. 10:14 Reassessment: Pt's states that the pt was scheduled for day surgery today for ed1 dialysis access placement. I called day surgery and he was not put on the schedule. Pt informed to call Dr. Pastrana office. Vital Signs: 07:21 Pulse 75; Resp 16; Pulse Ox 99% ; Weight 58.51 kg; Height 5 ft. 4 in. (162.56 cm); Pain ss 9/10; 07:28 BP 141 / 89; Temp 97.2; ss 07:48 BP 148 / 87; Pulse 74; Resp 16; Pulse Ox 100% on R/A; Pain 8/10; ed1 08:59 BP 144 / 93; Pulse 80; Resp 18; Pulse Ox 98% ; Pain 9/10; ed1 10:01 BP 113 / 77; Pulse 76; Resp 18; Pulse Ox 100% on R/A; Pain 0/10; ed1 07:21 Body Mass Index 22.14 (58.51 kg, 162.56 cm) ss 08:59 Pt having muscle spasms in legs ed1 ED Course: 06:50 Patient arrived in ED. ds1 07:00 Cooper Khalil PA is PHCP. jr8 07:00 Luis Antonio Barrientos MD is Attending Physician. jr8 07:16 Triage completed. ss 07:21 Arm band placed on right wrist. ss 07:28 Jossy Frankel, RAHUL is Primary Nurse. ss 07:32 Initial lab(s) drawn, by ED staff, sent to lab. Inserted saline lock: 20 gauge in right ss antecubital area, using aseptic technique. Blood collected. 07:37 Patient has correct armband on for positive identification. Placed in gown. Bed in low ed1 position. Call light in reach. Side rails up X2. Adult w/ patient. Pulse ox on. NIBP on. Warm blanket given. 07:38 CT completed. Patient tolerated procedure well. Patient moved to CT via stretcher. sj Patient moved back from CT. 07:39 CT Head Brain wo Cont In Process Unspecified. EDMS 10:15 No provider procedures requiring assistance completed. IV discontinued, intact, ed1 bleeding controlled, No redness/swelling at site. Pressure dressing applied. Administered Medications: 07:59 Drug: Insulin Regular Human 10 units {Co-Signature: ed1 (Salud Hernandez LVN).} Route: IVP; ss Site: right antecubital; 10:02 Follow up: Response: No adverse reaction; Blood sugar is lowered ed1 08:17 Drug: fentaNYL (PF) 50 mcg Route: IVP; Site: right antecubital; ss 10:02 Follow up: Response: No adverse reaction; Pain is decreased ed1 08:17 Drug: Potassium Chloride 40 mEq Route: PO; ss 10:02 Follow up: Response: No adverse reaction ed1 09:15 Drug: Valium 5 mg Route: IVP; Site: right antecubital; ss 10:03 Follow up: Response: No adverse reaction; Pain is decreased ed1 Point of Care Testing: Blood Glucose: 07:48 Blood Glucose: High (>450 mg/dL); ed1 08:59 Blood Glucose: 272 mg/dL; Test Strip: Lot #: [id number]; Expiration: 01/09/2019; ed1 07:48 BGL: 465; Labs already sent ed1 Ranges: Outcome: 09:38 Discharge ordered by MD. olvera 10:15 Discharged to home via wheelchair, with family. ed1 10:15 Condition: stable 10:15 Discharge instructions given to patient, family, Instructed on discharge instructions, follow up and referral plans. Demonstrated understanding of instructions, follow-up care. 10:16 Patient left the ED. ed1 Signatures: Dispatcher [employer] Tiffanie Linn Demi ds1 Jossy Frankel, RN RN ss Salud Hernandez LVN PUBLIC RELATIONS MANAGER ed1 Cooper Khalil PA PA jr8 Erika Riggs LVN ed1
--- NOTE | 2018-06-13 09:39 | EDPHYS ---
Physician Documentation [facility] Name: Jonathan Agudelo Age: 77 yrs Sex: Male : 1940 Arrival Date: 06/13/2018 Time: 06:50 Bed 23 Private MD: ED Physician Luis Antonio Barrientos HPI: 06/13 08:25 This 77 yrs old Male presents to ER via Ambulatory with complaints of jr8 head/neck pain. 08:25 Onset: The symptoms/episode began/occurred gradually, 2 day(s) ago. Associated signs jr8 and symptoms: Pertinent positives: dizziness, nausea. Severity of symptoms: At its worst the pain was moderate, in the emergency department the pain is unchanged. The patient has not experienced similar symptoms in the past. The patient has not recently seen a physician. Historical: - Allergies: 07:21 No Known Allergies; ss - PMHx: 07:21 CVA; Diabetes - NIDDM; HTN; Prostate Cancer; Vision problem; ESRD; ss - PSHx: 07:21 Prostate removed; ss - Immunization history:: Pneumococcal vaccine is not up to date, Flu vaccine is not up to date. - Social history:: Smoking status: Patient/guardian denies using tobacco, the patient reports quitting approximately 15 years ago. - Ebola Screening: : Patient denies exposure to infectious person Patient denies travel to an Ebola-affected area in the 21 days before illness onset. ROS: 08:25 Eyes: Negative for injury, pain, redness, and discharge, ENT: Negative for injury, jr8 pain, and discharge, Neck: Negative for injury, pain, and swelling, Cardiovascular: Negative for chest pain, palpitations, and edema, Respiratory: Negative for shortness of breath, cough, wheezing, and pleuritic chest pain, Abdomen/GI: Negative for abdominal pain, vomiting, diarrhea, and constipation. Positive nausea Back: Negative for injury and pain, MS/Extremity: Negative for injury and deformity, Skin: Negative for injury, rash, and discoloration. 08:25 Neuro: Positive for dizziness, headache, Negative for altered mental status, gait disturbance, hearing loss, loss of consciousness, numbness, seizure activity, speech changes, syncope, near syncope, tingling, tinnitus, tremor, visual changes, weakness. Exam: 08:25 Head/Face: Normocephalic, atraumatic. Eyes: Pupils equal round and reactive to light, jr8 extra-ocular motions intact. Lids and lashes normal. Conjunctiva and sclera are non-icteric and not injected. Cornea within normal limits. Periorbital areas with no swelling, redness, or edema. ENT: Nares patent. No nasal discharge, no septal abnormalities noted. Tympanic membranes are normal and external auditory canals are clear. Oropharynx with no redness, swelling, or masses, exudates, or evidence of obstruction, uvula midline. Mucous membranes moist. Chest/axilla: Normal chest wall appearance and motion. Nontender with no deformity. No lesions are appreciated. Cardiovascular: Regular rate and rhythm with a normal S1 and S2. No gallops, murmurs, or rubs. Normal PMI, no JVD. No pulse deficits. Respiratory: Lungs have equal breath sounds bilaterally, clear to auscultation and percussion. No rales, rhonchi or wheezes noted. No increased work of breathing, no retractions or nasal flaring. Abdomen/GI: Soft, non-tender, with normal bowel sounds. No distension or tympany. No guarding or rebound. No evidence of tenderness throughout. Back: No spinal tenderness. No costovertebral tenderness. Full range of motion. Skin: Warm, dry with normal turgor. Normal color with no rashes, no lesions, and no evidence of cellulitis. MS/ Extremity: Pulses equal, no cyanosis. Neurovascular intact. Full, normal range of motion. Neuro: Awake and alert, GCS 15, oriented to person, place, time, and situation. Cranial nerves II-XII grossly intact. Motor strength 5/5 in all extremities. Sensory grossly intact. Cerebellar exam normal. Normal gait. 08:25 Neck: External neck: tenderness, that is moderate, of the occiput, ROM/movement: pain, that is moderate, with any movement, Meningeal signs: are not present, Kernig's sign is negative, Brudzinski's sign is negative, Lymph nodes: no appreciated lymphadenopathy. Vital Signs: 07:21 Pulse 75; Resp 16; Pulse Ox 99% ; Weight 58.51 kg; Height 5 ft. 4 in. (162.56 cm); Pain ss 9/10; 07:28 BP 141 / 89; Temp 97.2; ss 07:48 BP 148 / 87; Pulse 74; Resp 16; Pulse Ox 100% on R/A; Pain 8/10; ed1 08:59 BP 144 / 93; Pulse 80; Resp 18; Pulse Ox 98% ; Pain 9/10; ed1 10:01 BP 113 / 77; Pulse 76; Resp 18; Pulse Ox 100% on R/A; Pain 0/10; ed1 07:21 Body Mass Index 22.14 (58.51 kg, 162.56 cm) ss 08:59 Pt having muscle spasms in legs ed1 MDM: 07:00 Patient medically screened. jr8 09:34 Data reviewed: vital signs, nurses notes, lab test result(s), radiologic studies, CT jr8 scan. Data interpreted: Pulse oximetry: on room air is 98 %. Interpretation: normal. Counseling: I had a detailed discussion with the patient and/or guardian regarding: the historical points, exam findings, and any diagnostic results supporting the discharge/admit diagnosis, lab results, radiology results, the need for outpatient follow up, nephrology . Response to treatment: the patient's symptoms have markedly improved after treatment. ED course: Glucose was decreased. Has appointment to have graft put in for dialysis. Patient feeling better. Headache gone. Patient was having muscle spasms in lower legs that are now resolved. Replaced potassium . 06/13 07:13 Order name: CBC with Diff; Complete Time: 07:50 jr8 06/13 07:13 Order name: Basic Metabolic Panel; Complete Time: 08:12 jr8 06/13 07:13 Order name: CT Head Brain wo Cont; Complete Time: 08:01 jr8 06/13 07:13 Order name: Glucose Level; Complete Time: 07:49 jr8 06/13 07:53 Order name: IV; Complete Time: 07:55 jr8 Administered Medications: 07:59 Drug: Insulin Regular Human 10 units {Co-Signature: ed1 (Salud Hernandez LVN).} Route: IVP; ss Site: right antecubital; 10:02 Follow up: Response: No adverse reaction; Blood sugar is lowered ed1 08:17 Drug: fentaNYL (PF) 50 mcg Route: IVP; Site: right antecubital; ss 10:02 Follow up: Response: No adverse reaction; Pain is decreased ed1 08:17 Drug: Potassium Chloride 40 mEq Route: PO; ss 10:02 Follow up: Response: No adverse reaction ed1 09:15 Drug: Valium 5 mg Route: IVP; Site: right antecubital; ss 10:03 Follow up: Response: No adverse reaction; Pain is decreased ed1 Point of Care Testing: Blood Glucose: 07:48 Blood Glucose: High (>450 mg/dL); ed1 08:59 Blood Glucose: 272 mg/dL; Test Strip: Lot #: [id number]; Expiration: 01/09/2019; ed1 07:48 BGL: 465; Labs already sent ed1 Ranges: Critical Glucose Levels:Adult <50 mg/dl or >400 mg/dl <40 mg/dl or >180 mg/dl Disposition: 06/14 07:26 Co-signature as Attending Physician, Luis Antonio Barrientos MD I agree with the assessment and john plan of care. Disposition: 06/13/18 09:38 Discharged to Home. Impression: Hyperglycemia, unspecified, Chronic kidney disease (CKD), Hypokalemia, Muscle spasm of calf. - Condition is Stable. - Discharge Instructions: Hyperglycemia, Blood Glucose Monitoring, Adult, Chronic Kidney Disease, Adult, Hypokalemia. - Medication Reconciliation Form, Thank You Letter, Antibiotic Education, Prescription Opioid Use form. - Follow up: Private Physician; When: Today; Reason: Recheck today's complaints, Continuance of care, Re-evaluation by your physician. - Problem is new. - Symptoms have improved. Signatures: Dispatcher [employer] EDLuis Antonio Patterson MD MD cha Smirch, Shelby, RN RN Salud Su, PASTEURIZER PASTEURIZER ed1 Cooper Khalil PA PA jr8 Salud Hernandez PASTEURIZER ed1 Corrections: (The following items were deleted from the chart) 06/13 10:16 09:38 06/13/2018 09:38 Discharged to Home. Impression: Hyperglycemia, unspecified; ed1 Chronic kidney disease (CKD); Hypokalemia; Muscle spasm of calf. Condition is Stable. Forms are Medication Reconciliation Form, Thank You Letter, Antibiotic Education, Prescription Opioid Use. Follow up: Private Physician; When: Today; Reason: Recheck today's complaints, Continuance of care, Re-evaluation by your physician. Problem is new. Symptoms have improved. jr8
[2018-06-13 10:24] VITALS: TEMP 97.2
[2018-06-13 10:28] VITALS: BP 113/77; O2SAT 100
== END 2018-06-13 10:16 | disposition home or self-care (01) ==
LOC: ER 06:42
DX: E11.65 Type 2 diabetes mellitus with hyperglycemia (principal); E11.22 Type 2 diabetes mellitus with diabetic chronic kidney disease; I12.0 Hypertensive chronic kidney disease with stage 5 chronic kidney disease or end stage renal disease; N18.6 End stage renal disease; E87.6 Hypokalemia; M62.831 Muscle spasm of calf; Z86.73 Personal history of transient ischemic attack (TIA), and cerebral infarction without residual deficits
CPT/HCPCS: 36415; 70450; 80048; 82962 ×2; 85025; 96374; 96375; 99284; J3010; J3360

== ENCOUNTER 2018-06-16 07:33 | Inpatient (IN) | payer OTHER ==
[2018-06-16 08:03] LABS: Absolute Lymphocytes (CBC) 0.5 K/uL (0.7-4.9); Absolute Monocytes 1.1 K/uL (0.1-1.3); Absolute Neutrophil 7.4 K/uL (1.8-8.0); Eosinophils % 0.5 % (0-4.4); Hematocrit 32.3 % (39.6-49.0); MCH 29.6 pg (27.0-35.0); MCV 84.4 fL (80-100); MPV 10.5 fL (7.6-11.3); Monocytes % 11.6 % (3.3-12.3); RBC Red Blood Cell Count 3.83 M/uL (4.33-5.43)
[2018-06-16] MEDS ORDERED: NA CHLORIDE 0.9% 500 ML ONE (08:23)
[2018-06-16] MEDS ORDERED: NS 0.9% VIAL 10 ML ONE (08:25)
[2018-06-16] MEDS ORDERED: NA CHLORIDE 0.9% 100 ML IV ONE (08:26)
[2018-06-16] MEDS: HEPARIN 5000 UNIT/ML 1 ML VIAL ONE ×3 (08:26→09:14)
[2018-06-16] MEDS ORDERED: LIDOCAINE 1% MPF 30 ML VIAL ONE (08:26)
[2018-06-16] MEDS ORDERED: INSULIN -REGULAR HUMAN 50 UNIT/0.5 ML ML ONE (08:46)
[2018-06-16] MEDS ORDERED: PROPOFOL 200 MG/20 ML VIAL IV ONE (08:55)
[2018-06-16] MEDS ORDERED: FENTANYL CITR 100 MCG/2 ML ONE (08:56)
[2018-06-16] MEDS ORDERED: LIDOCAINE 2% MPF 5 ML VIAL ONE (08:56)
[2018-06-16] MEDS ORDERED: MIDAZOLAM HCL 2 MG/2 ML INJ ONE (08:56)
[2018-06-16] MEDS: CEFAZOLIN/SWI 1gm 1 GM/10 ML SYR ONE ×2 (09:08→09:39)
--- NOTE | 2018-06-16 10:11 | RAD REPORT ---
EXAM DESCRIPTION: RAD - Fluoroscopy <1 Hour - 06/16/2018 9:57 am CLINICAL HISTORY: Device placement central venous catheter placement FINDINGS: A central venous catheter was placed into the superior vena cava. Multiple fluoroscopic sp ot images are submitted. The examination was performed by Dr. Kapoor Two fluoroscopic spot image is submitted. Fluoroscopy 1.2 minutes
--- NOTE | 2018-06-16 10:48 | RAD REPORT ---
EXAM DESCRIPTION: RAD - Chest Single View - 06/16/2018 10:35 am CLINICAL HISTORY: sp tessio catheter placement Chest pain. COMPARISON: Chest Pa And Lat (2 Views) dated 06/06/2018; Chest Single View dated 05/26/2018; Chest Sin gle View dated 03/01/2018; Chest Pa And Lat (2 Views) dated 01/30/2018 FINDINGS: Portable technique limits examination quality. The lungs are grossly clear. The heart is normal in size. No displaced fractures. Right-sided venous catheter is in place with tip in the SVC. No postprocedure pneumothorax. IMPRESSION: No postprocedure pneumothorax.
[2018-06-16] MEDS ORDERED: GABAPENTIN 100 MG CAP PO PRN (11:46)
[2018-06-16] MEDS ORDERED: GLUCAGON 1 MG/VIAL IM PRN (11:46)
[2018-06-16] MEDS ORDERED: HYDRALAZINE HCL 20 MG/ML VIAL IV PRN (11:46)
[2018-06-16] MEDS ORDERED: D50W 25 GM/50 ML SYRINGE IV PRN (11:46)
[2018-06-16] MEDS ORDERED: INSULIN GLARGINE 100 UNITS/ML SQ SCH (11:47)
--- NOTE | 2018-06-16 12:06 | P.HP ---
Certification for Inpatient Patient admitted to: Inpatient With expected LOS: >2 Midnights Patient will require the following post-hospital care: Long Term Practitioner: I am a practitioner with admitting privileges, knowledge of patient current condition, hospital course, and medical plan of care. Services: Services provided to patient in accordance with Admission requirements found in Title 42 Section 412.3 of the Code of Federal Regulations Patient History Date of Service: 06/16/18 Primary Care Provider: Dr. Moody; Nephrology-Dr. Ashraf Reason for admission: End-stage renal disease History of Present Illness: 77-year-old male currently in surgery recovery area after placement of Tessio catheter by surgery. Patient requires dialysis. Patient was admitted for placement of catheter into begin dialysis. Patient has end-stage renal disease, diabetes and hypertension. Patient followed by nephrology. Patient had procedure today. I was asked to admit the patient to further address. Nephrology is aware of the patient. On lab white count 9.2, hemoglobin 11. Sodium 119. Potassium 3.0. Chloride 71 , bicarb 31, BUN of 126. Creatinine 8.1 with a GFR 7. Glucose 664. Calcium 8.3. Chest x-ray post catheter placement shows no pneumothorax. Patient currently stable this time. Allergies No Known Allergies Allergy (Verified 05/27/18 01:24) Home medications list reviewed: Yes Home Medications: Carvedilol [Coreg*] 6.25 mg PO BID #60 tab 01/18/18 Glimepiride [Amaryl] 4 mg PO BID 03/01/18 Furosemide 80 mg PO BID 05/26/18 Na Bicarb Tab [Sodium Bicarb 325 MG Tab*] 325 mg PO BID 06/16/18 Smz./Tmp. [Bactrim Ds 800 MG/160 MG*] 1 tab PO BID 06/16/18 metOLazone [Metolazone] 5 mg PO DAILY 06/16/18 - Past Medical/Surgical History Diabetic: No -: Diabetes mellitus type 2 -: Hypertension -: History of aortic stenosis -: Atrial fibrillation -: End-stage renal disease -: Diabetic neuropathy -: History prostate surgery Psychosocial/ Personal History: Not able to be obtained. Surgeon reports patient has . - Family History Family History: Reviewed- Non-Contributory - Family History Father -: Lung disease - Social History Smoking Status: Unknown if ever smoked Alcohol use: No CD- Drugs: No Caffeine use: No Place of Residence: Home Review of Systems is unable to be obtained Physical Examination - Vital Signs Temperature: 97 F Blood Pressure: 110/69 Pulse: 73 Respirations: 18 - Physical Exam General: Alert, Cooperative, Mild distress (Patient reports pain everywhere), Other (Increased anxiety noted) HEENT: Atraumatic, Normocephalic Neck: Supple Respiratory: Clear to auscultation bilaterally, Normal air movement Cardiovascular: Normal pulses, Regular rate/rhythm Gastrointestinal: Normal bowel sounds, Soft and benign, Non-distended, No tenderness, No masses, No rebound, No guarding Musculoskeletal: No erythema, No tenderness, No warmth Integumentary: No tenderness/swelling, No erythema, No warmth, No cyanosis Neurological: Normal speech, Normal strength at 5/5 x4 extr, Normal tone, Abnormal affect (Increased anxiety) Other Physical/Emotional Findings: Tessiocatheter in place - Studies Laboratory Data (last 24 hrs) 06/16/18 07:43: Sodium 119 L*, Potassium 3.0 L, BUN 126 H, Creatinine 8.10 H* D , Glucose 662 H* 06/16/18 07:43: WBC 9.2, Hgb 11.3 L, Hct 32.3 L, Plt Count 252 Assessment and Plan - Plan Impression: End-stage renal disease requiring dialysis Status post dialysis catheter placement Hyponatremia Anemia of chronic disease Diabetes mellitus type 2 uncontrolled Hypertension History of atrial fibrillation Diabetic neuropathy Plan: End-stage renal disease requiring dialysis: Patient admitted for emergent dialysis. Dialysis catheter in place. Will discuss with nephrology. Anticipate dialysis today. Further adjustment can be done by nephrology. Will monitor lab work. Status post dialysis catheter placement: Patient cleared by surgery to start dialysis Hyponatremia: Nephrology to further assess. Patient will require dialysis. Will monitor lab. Anemia of chronic disease: Will monitor closely. Diabetes mellitus type 2 uncontrolled: Will start basal insulin. Will provide sliding scale. Will check A1c. Will review home medication. Hypertension: Will need to review home medication. Will provide IV medication as needed History of atrial fibrillation: Will monitor on telemetry. Will review home medication. Diabetic neuropathy: Will provide medication for pain. Will monitor and adjust appropriately. Discharge Plan: Other (Possible skilled placement versus home with home health) Plan to discharge in: Greater than 2 days - Advance Directives Does patient have a Living Will: No Does patient have a Durable POA for Healthcare: No - Code Status/Comfort Care Code Status Assessed: No (Will need to address code status) Time Spent Managing Pts Care (In Minutes): 55
[2018-06-16 12:28] LABS: Thyroid Stimulating Hormone 0.821 uIU/mL (0.360-3.740)
--- NOTE | 2018-06-16 12:55 | OP ---
Date of Procedure: 06/16/2018 Surgeon: Estiven Kapoor MD Preoperative Diagnosis: End-stage renal disease. Postoperative Diagnosis: End-stage renal disease. Procedure: Right subclavian Tesio catheter placement and interpretation of intraoperative fluoroscop y. Estimated Blood Loss: Minimal. Specimen: None. Findings: Difficult to access right IJ vein. Therefore, the right subclavian vein was used. Findings: As above. Anesthesia: MAC. Complications: None. Disposition: The patient tolerated the procedure in stable condition and taken to Recovery in good g eneral condition. Description Of Procedure: The patient was brought to the OR and placed in the supine position. MAC anesthesia was begun. The patient was prepped and draped in usual sterile fashion. Lidocaine 1% inf iltrated locally. An 18-gauge needle was used to access the right IJ vein. However, it was very dif ficult to pass the guidewire, tried several times. One time, the carotid artery was accessed acciden tally and the pressure was applied. Subsequently moved to the subclavian site, which was easily acce ssed with the 18-gauge needle. Guidewire passed, position confirmed with fluoroscopy. A counterinci woo was made. Then, a tunneling device was used to tunnel the catheter between the 2 wounds. Seldi nger technique used, vein dilated and the tip of the catheter placed in the SVC under fluoroscopy. T he catheter was flushed with heparin and packed with heparin and then sterile dressing applied after 3-0 chromic and 3-0 nylon used to close the wound and secure the tube to the chest wall. The patient was awakened and taken to Recovery in good general condition. The patient will be admitted because of abnormal electrolytes to the hospitalist. Plan of care discussed with Dr. Ashraf. /MODL Voice ID: [id number] Report ID: [id number]
[2018-06-16] MEDS ORDERED: NA CHLORIDE 0.9% 1,000 ML ONE (14:33)
[2018-06-16] MEDS: TRAMADOL HCL 50 MG TAB PO PRN (14:34)
[2018-06-16] MEDS ORDERED: NA CHLORIDE 0.9% 1,000 ML IV SCH (15:00)
[2018-06-16 15:01] LABS: Arterial Blood Carboxyhemoglob 1.5 % (0-1.5); Blood Gas Oxyhemoglobin 93.6 % (94-97)
[2018-06-16] MEDS: INSULIN -REGULAR HUMAN 50 UNIT/0.5 ML ML SQ SCH ×2 (16:30→21:22)
[2018-06-16] MEDS ORDERED: NA CHLORIDE 0.9% 1,000 ML IV PRN (18:05)
[2018-06-16] MEDS ORDERED: MANNITOL 25% 12.5 GM/50 ML VIAL IV PRN (18:05)
[2018-06-16] MEDS ORDERED: ALBUMIN HUMAN 25% 50 ML IV SCH (19:00)
[2018-06-16] MEDS: CALCITROL 0.25 MCG CAP PO SCH (23:02)
[2018-06-16 23:57] LABS: Potassium 3.1 mmol/L (3.5-5.1)
--- NOTE | 2018-06-17 00:55 | CON ---
Reason For Consultation: Elevated BUN and creatinine, hyponatremia, electrolyte imbalance. History Of Present Illness: This is a pleasant 77-year-old gentleman, well known to me from the [facility], poor compliant, with significant past medical history of diabetes complicated with retinopathy, n europathy, and nephropathy; hypertension; hyperlipidemia; headache with suspect of polyarthritis nodo sa ruled out by biopsy; chronic kidney disease, advanced stage 5, supposed to be started on dialysis almost more than 2 weeks ago. The patient was referred to Dr. Kapoor for placement of PermCath. The patient reschedule his appointment. Anyhow, today, he came for PermCath placement, which was done by Dr. Kapoor. Could not get the IJ. Ended up getting subclavian. Labs showed severe hyponatremia wit h hypochloremia and elevated BUN and creatinine. The patient still has good urine output, but being weak, decreased intake with nausea, without any vomiting. For that reason, we asked the patient to b e admitted to be initiated on dialysis as in house. The patient was admitted to ICU. Past Medical History: Includes; 1.Diabetes complicated with neuropathy, retinopathy, and nephropathy. 2.Hypertension. 3.CVA without residual. 4.Benign prostate hypertrophy, status post transurethral resection of prostate. 5.Chronic kidney disease, stage 5, secondary to diabetic nephropathy with nephrotic range of protein uria. Negative SPEP and UPEP. Progression to end-stage renal disease. Past Surgical History: Includes; 1.Transurethral resection of prostate. 2.PermCath placement. Family History: Positive for hypertension and diabetes. Social History: Denies smoking, denies drinking, and denies drugs abuse. Current Medications: At home include; 1.Metolazone. 2.Glimepiride. 3.Lasix. 4.Carvedilol. 5.Sodium bicarb. Medications: Current medications in the hospital include; 1.Insulin. 2.Hydralazine. 3.Tramadol. Review of Systems: Head and Neck: Has headache. GI: Decreased intake. : No polyuria. No dysuria. No hematuria. GANG BOSS: Not applicable. Respiratory: No shortness of breath. Cardiovascular: No chest pain. Neurologic: Feeling weak. Musculoskeletal: No joint pain. Endocrine: No polydipsia. Skin: No rash. Physical Examination: Vital Signs: Blood pressure 122/94, pulse of 72, and afebrile. Chest: Clear to auscultation. Heart: S1, S2. Regular. Abdomen: Soft, nontender. Extremities: No edema. Neurological: Alert and oriented x3. Nonfocal. Laboratory Data: Sodium 119, potassium 3, chloride 71, bicarb 31, BUN 126, creatinine 8.1, GFR of 7, and glucose 662. Corrected sodium is 125, calcium 8.3. Hemoglobin A1c 16. WBC 9.2, H and H 11.3/3 2.3, and platelets 252. Chest x-ray; no congestion. PermCath placement. Assessment: 1.Hyponatremia. 2.Hyperchloremia. 3.Alkalosis. 4.Hyperglycemia. 5.Hypokalemia. 6.Diabetes. 7.Nephrotic range of proteinuria. 8.Secondary hyperparathyroidism. 9.Hypertension. Plan: 1.Chronic kidney disease, progression to end-stage renal disease, nonoliguric, with severe uremic sy mptoms. No acidosis or hyperkalemia. We going to initiate the patient on dialysis given the presenc e of the significant hyponatremia and hypokalemia with significant elevation in the BUN. I am going to had to dialyze the patient on gentle dialysis close to CVVH or SLED to avoid overcorrection of the sodium as the patient has to be on high sodium bath, the lowest without missing up conductivity is g oing to be 136. For that reason, I am going to go ahead and dialyze the patient on low blood flow do wn to 200 with short time of only 2-1/2 hours, to be repeated on a daily basis for the next 3 to 5 da ys. In the meantime, I am going to accept the hyperglycemia till we overcome the correction of the h yponatremia in the same time to the correction of the uremia to avoid overcorrection of the sodium an d demyelination syndrome for the patient. In this case, I am going to be using the glucosuria to ove rcome the overcorrection or the fast correction of the hypernatremia. 2.Hypokalemia. The patient is going to be dialyzed on low potassium bath. 3.Hyperchloremia secondary to contraction alkalosis, going to be corrected with the dialysis. 4.Secondary hyperparathyroidism. I am going to start the patient on calcitriol. 5.Hyponatremia, secondary to renal failure, superimposed with metolazone. Questionable relative adr enal insufficiency as the patient was on prednisone for awhile. a.As above, I am going to start the patient on normal 100 per hour. I will send for cortisol and TS H again. b.I am going to do the regimen of the dialysis as above with the same justifications. c.I am going to go ahead and send for chemistry after the dialysis tour to readjust the IV fluid dep ending on that, and we will follow up. 6.Hypertension. Given the hyponatremia, we will hold on all diuresis, currently controlled. We monica l utilize the blood pressure for establishing better volume control on the dialysis. 7.Diabetes, uncontrolled. As above, I am going to accept hyperglycemia currently till we establish better stabilization for his sodium. Then, I am going to go ahead and have better control for his di abetes and blood sugar. 8.Anemia. Currently, no need for ALBERTA. Thank you, Dr. Ewing, for allowing us to participate in the care of your patient. KASSIE Voice ID: [id number] Report ID: [id number]
[2018-06-17] MEDS ORDERED: NA CHLORIDE 0.9% 1,000 ML IV SCH (01:00)
[2018-06-17 05:30] LABS: Absolute Lymphocytes (CBC) 0.9 K/uL (0.7-4.9); Absolute Monocytes 1.2 K/uL (0.1-1.3); Basophils % 0.7 % (0-1.3); Eosinophils % 0.9 % (0-4.4); Hematocrit 29.9 % (39.6-49.0); Lymphocytes % 9.3 % (15.3-44.8); MCV 83.6 fL (80-100); Monocytes % 12.6 % (3.3-12.3); RBC Red Blood Cell Count 3.57 M/uL (4.33-5.43)
[2018-06-17 05:42] LABS: Albumin 2.5 g/dL (3.4-5.0); Magnesium 2.7 mg/dL (1.8-2.4); Phosphorus 6.1 mg/dL (2.5-4.9); Potassium 3.4 mmol/L (3.5-5.1); Uric Acid 7.6 mg/dL (3.5-7.2)
[2018-06-17] MEDS: INSULIN -REGULAR HUMAN 50 UNIT/0.5 ML ML SQ SCH ×4 (07:30→21:00)
--- NOTE | 2018-06-17 08:23 | P.PN ---
Subjective Date of Service: 06/17/18 Primary Care Provider: Dr. Moody; Nephrology-Dr. Ashraf Chief Complaint: End-stage renal disease Subjective: Improving (Patient without complaints. Patient doing well this time.) Physical Examination - Vital Signs Temperature: 97.6 F Blood Pressure: 128/73 Pulse: 73 Respirations: 17 Pulse Ox (%): 93 - Physical Exam General: Alert, In no apparent distress, Oriented x3, Cooperative HEENT: Atraumatic, Mucous membr. moist/pink Neck: Supple, No Thyromegaly Respiratory: Clear to auscultation bilaterally, Normal air movement Cardiovascular: Normal pulses, Regular rate/rhythm Gastrointestinal: Normal bowel sounds, Soft and benign, Non-distended, No masses , No rebound, No guarding Musculoskeletal: No erythema, No tenderness, No warmth Integumentary: No tenderness/swelling, No erythema, No warmth, No cyanosis Neurological: Normal speech, Normal strength at 5/5 x4 extr, Normal tone, Normal affect Other Physical/Emotional Findings: Tessiocatheter in place - Studies Laboratory Data (last 24 hrs) 06/17/18 06:00: WBC Cancelled, Hgb Cancelled, Hct Cancelled, Plt Count Cancelled 06/17/18 04:56: Sodium 136, Potassium 3.4 L, BUN 78 H, Creatinine 5.30 H*, Glucose 82, Uric Acid 7.6 H D, Phosphorus 6.1 H, Magnesium 2.7 H 06/17/18 04:56: WBC 9.2, Hgb 10.7 L, Hct 29.9 L, Plt Count 263 06/17/18 04:56: Sodium Cancelled, Potassium Cancelled, BUN Cancelled, Creatinine Cancelled, Glucose Cancelled, Phosphorus Cancelled, Magnesium Cancelled 06/16/18 22:39: Sodium 132 L, Potassium 3.1 L, BUN 73 H D, Creatinine 5.10 H* D , Glucose 262 H 06/16/18 07:43: Sodium 119 L*, Potassium 3.0 L, BUN 126 H, Creatinine 8.10 H* D , Glucose 662 H* Medications List Reviewed: Yes Assessment & Plan Discharge Plan: Home Plan to discharge in: 72 Hours Physician Review Additional Text: Impression: End-stage renal disease requiring dialysis Status post dialysis catheter placement Hyponatremia Anemia of chronic disease Diabetes mellitus type 2 uncontrolled Hypertension History of atrial fibrillation Diabetic neuropathy Plan: End-stage renal disease requiring dialysis: Patient started dialysis yesterday. Patient will likely have dialysis again today. Patient seems to be doing well. Dialysis catheter in place. Will discuss with nephrology. Will need to have medical staff services manager help arrange for dialysis as an outpatient. Will transfer the patient to the floor if okay with nephrology. Status post dialysis catheter placement: Patient cleared by surgery to start dialysis Hyponatremia: Significant improvement in hyponatremia. Now within normal range. Nephrology to further address. Patient had dialysis yesterday. Patient will likely have dialysis again today. Will continue to monitor closely. Anemia of chronic disease: Will monitor closely. Overall stable. Diabetes mellitus type 2 uncontrolled: Will decrease basal insulin to 20 units. A1c elevated at 16. Patient needs better diabetic control. Will monitor for hypoglycemia. Hypertension: Will restart carvedilol but at a lower dose. Will hold if blood pressure less than 120 systolic. Will monitor and adjust appropriately. History of atrial fibrillation: Will monitor on telemetry. Will restart carvedilol at a lower dose. Will monitor closely. Will provide DVT prophylaxis. Diabetic neuropathy: Will provide medication for pain. Time Spent Managing Pts Care (In Minutes): 55
[2018-06-17] MEDS: INSULIN GLARGINE 100 UNITS/ML SQ SCH (08:42)
[2018-06-17 10:33] LABS: Urine Appearance CLEAR; Urine Bilirubin NEGATIVE (NEG); Urine Blood 3+ (NEG); Urine Color YELLOW; Urine Glucose 2+ (NEG); Urine Protein 3+ (NEG); Urine Specific Gravity 1.015 (1.005-1.030); Urine Urobilinogen 0.2 mg/dL (0.2-1.0); Urine pH 5.5 (5.0-7.0)
[2018-06-17 10:40] LABS: Urine Microscopic Reflex ORDER UMIC
[2018-06-17 10:53] LABS: Urine Bacteria 20-50 /HPF (NONE SEEN); Urine Culture Reflex Order REFLEXED; Urine RBC >50 /HPF (NONE SEEN)
[2018-06-17] MEDS: CODEINE 30MG/APAP 300MG TAB PO PRN (11:27)
[2018-06-17] MEDS: TAMSULOSIN 0.4 MG SR CAP PO SCH (15:46)
[2018-06-17] MEDS: ENOXAPARIN 30 MG/0.3 ML SQ SCH (16:32)
[2018-06-17] MEDS: CALCIUM CARBONATE CHEW 500MG TAB PO SCH (16:32)
[2018-06-17] MEDS: CARVEDILOL 3.125 MG TAB PO SCH (18:00)
--- NOTE | 2018-06-17 19:53 | PN ---
Date of Progress Note: 06/17/2018 Subjective: The patient status post dialysis yesterday. Tolerated the dialysis. The patient was ad mitted with altered mental status, uremia, hyponatremia, hyperglycemia. Physical Examination: Vital Signs: When I saw the patient blood pressure of 139/82, pulse of 80, afebrile. Chest: Clear to auscultation. Heart: S1, S2 regular. Abdomen: Soft. Nontender. Extremity: No edema. Laboratory Data: WBC 9.2, H and H 10.7/29.9, platelet of 263. Sodium 136, potassium 3.4, bicarb 31, BUN 78, creatinine 5.3, albumin 2.7, corrected calcium is 8.5. Current Medications: The patient on include: 1.Normal saline at 50 mL per hour. 2.Carvedilol. 3. . 4.Hydralazine. 5.Tramadol. Assessment And Plan: 1.End-stage renal disease, with uremia, improving. I am going to go ahead and do another session of dialysis. Today, the patient is going to be dialyzed on high potassium bath and low sodium bath to control the hyponatremia. We are going to remove any fluid. 2.Discontinue IV fluid. 3.Hypertension, controlled, optimal. Continue current treatment. 4.Hypokalemia. The patient is going to dialyze on 4 K bath. 5.Hyponatremia, multifactorial secondary to glucose diuresis/pseudohyponatremia corrected on dialysi s yesterday. I do not seen any need for normal saline for the time being, the patient is going to be dialyzed low sodium bath and will follow up. 6.Hyperglycemia/diabetes, as by primary. 7.Altered mental status secondary to uremia resolved. 8.Secondary hyperparathyroidism. The patient started on calcitriol and Tums. We will follow up. MEKHI/SCOOBY Voice ID: [id number] Report ID: [id number]
[2018-06-18 06:21] LABS: Absolute Lymphocytes (CBC) 0.9 K/uL (0.7-4.9); Absolute Monocytes 0.9 K/uL (0.1-1.3); Absolute Neutrophil 5.8 K/uL (1.8-8.0); Basophils % 1.2 % (0-1.3); Eosinophils % 1.4 % (0-4.4); Hematocrit 29.2 % (39.6-49.0); Lymphocytes % 11.2 % (15.3-44.8); MCH 29.9 pg (27.0-35.0); MCV 85.4 fL (80-100); Monocytes % 11.8 % (3.3-12.3); RBC Red Blood Cell Count 3.42 M/uL (4.33-5.43)
[2018-06-18] MEDS: CARVEDILOL 3.125 MG TAB PO SCH (06:23)
[2018-06-18 06:35] LABS: Albumin 2.3 g/dL (3.4-5.0); Magnesium 2.5 mg/dL (1.8-2.4); Phosphorus 3.9 mg/dL (2.5-4.9); Potassium 3.2 mmol/L (3.5-5.1)
[2018-06-18] MEDS: INSULIN -REGULAR HUMAN 50 UNIT/0.5 ML ML SQ SCH ×4 (07:30→20:40)
[2018-06-18] MEDS: CALCIUM CARBONATE CHEW 500MG TAB PO SCH ×3 (08:23→16:42)
[2018-06-18] MEDS: INSULIN GLARGINE 100 UNITS/ML SQ SCH (08:24)
[2018-06-18] MEDS: TAMSULOSIN 0.4 MG SR CAP PO SCH (08:24)
--- NOTE | 2018-06-18 08:46 | P.PN ---
Subjective Date of Service: 06/18/18 Primary Care Provider: Dr. Moody; Nephrology-Dr. Ashraf Chief Complaint: End-stage renal disease Subjective: Doing well Physical Examination - Vital Signs Temperature: 98.1 F Blood Pressure: 123/77 Pulse: 82 Respirations: 18 Pulse Ox (%): 100 - Physical Exam General: Alert, In no apparent distress, Oriented x3, Cooperative HEENT: Atraumatic Neck: Supple Respiratory: Clear to auscultation bilaterally, Normal air movement Cardiovascular: Normal pulses, Regular rate/rhythm Gastrointestinal: Normal bowel sounds, Soft and benign, Non-distended, No tenderness, No masses, No rebound, No guarding Musculoskeletal: No erythema, No tenderness, No warmth Integumentary: No tenderness/swelling, No erythema, No warmth, No cyanosis Neurological: Normal speech, Normal strength at 5/5 x4 extr, Normal tone, Normal affect Other Physical/Emotional Findings: Tessiocatheter in place - Studies Laboratory Data (last 24 hrs) 06/18/18 05:24: Sodium 134 L, Potassium 3.2 L, BUN 47 H D, Creatinine 3.70 H D, Glucose 151 H, Phosphorus 3.9, Magnesium 2.5 H 06/18/18 05:24: WBC 7.8 D, Hgb 10.2 L, Hct 29.2 L, Plt Count 242 Medications List Reviewed: Yes Assessment & Plan Discharge Plan: Home Plan to discharge in: 24 Hours Physician Review Additional Text: Impression: End-stage renal disease requiring dialysis Status post dialysis catheter placement Hyponatremia Anemia of chronic disease Diabetes mellitus type 2 uncontrolled Hypertension History of atrial fibrillation Diabetic neuropathy BPH Plan: End-stage renal disease requiring dialysis: Patient doing well with dialysis. Case discussed with nephrology yesterday. Patient to have outpatient dialysis arranged. Will have social science professor address this tomorrow. Anticipate discharge once this has been set up. Status post dialysis catheter placement: Patient doing well. Hyponatremia: This appears resolved. Will continue to monitor closely. Nephrology continues with dialysis Anemia of chronic disease: Will monitor closely. Overall stable. Diabetes mellitus type 2 uncontrolled: Medication adjusted yesterday. A1c 16. Will continue to monitor and address appropriately. Hypertension: Will continue with carvedilol. Will hold if blood pressure less than 120 systolic. Will monitor and adjust appropriately. History of atrial fibrillation: Will monitor on telemetry. Continue with carvedilol. Will monitor closely. Will provide DVT prophylaxis. Diabetic neuropathy: Will continue with medication for pain. BPH: Patient continues with medication-Flomax Time Spent Managing Pts Care (In Minutes): 55
[2018-06-18] MEDS: CODEINE 30MG/APAP 300MG TAB PO PRN (11:20)
[2018-06-18] MEDS: GABAPENTIN 100 MG CAP PO SCH ×2 (14:12→20:40)
[2018-06-18] MEDS: ENOXAPARIN 30 MG/0.3 ML SQ SCH (16:42)
--- NOTE | 2018-06-18 20:17 | PN ---
Date of Progress Note: 06/18/2018 Subjective: The patient is doing better, more awake. Uremic symptoms has resolved. Good intake. Physical Examination: Vital Signs: Blood pressure 140/77, pulse of 80. Chest: Clear to auscultation. Heart: S1 and S2 regular. Abdomen: Soft, nontender. Extremities: No edema. Laboratory Data: H and H 10.2/29.2. Sodium 134, potassium 3.2, bicarb 29, BUN 47, creatinine 3.7, c alcium 8.8, phosphorus 3.9. Current Medications: The patient on calcium carbonate 500 with each meal, calcitriol 0.5, Lovenox, i nsulin, gabapentin 100 t.i.d., Tramadol, and Flomax. Assessment And Plan: 1.End-stage renal disease. We will continue the patient on dialysis Tuesday, Tuesday, Tuesday. 2.Hypertension, controlled, optimal. I am going to go ahead and discontinue carvedilol. 3.Urine retention. The patient was started on Flomax. 4.Hyponatremia, secondary to and renal failure, recovered, resolved. 5.Uremia, secondary to renal failure. Continue dialysis. 6.Encephalopathy, secondary to uremia, resolved. 7.Neuropathy. I will decrease gabapentin to twice a day. 8.Secondary hyperparathyroidism. Continue Tums and calcitriol. KASSIE Voice ID: [id number] Report ID: [id number]
[2018-06-18] MEDS: CALCITROL 0.25 MCG CAP PO SCH (23:19)
[2018-06-19 04:44] LABS: Absolute Lymphocytes (CBC) 0.9 K/uL (0.7-4.9); Eosinophils % 1.6 % (0-4.4); Hematocrit 26.2 % (39.6-49.0); MCH 29.7 pg (27.0-35.0); MCV 85.6 fL (80-100); Monocytes % 12.2 % (3.3-12.3); RBC Red Blood Cell Count 3.06 M/uL (4.33-5.43)
[2018-06-19 05:06] LABS: Albumin 2.1 g/dL (3.4-5.0); Magnesium 2.2 mg/dL (1.8-2.4); Phosphorus 5.3 mg/dL (2.5-4.9); Potassium 3.3 mmol/L (3.5-5.1)
[2018-06-19] MEDS: INSULIN -REGULAR HUMAN 50 UNIT/0.5 ML ML SQ SCH ×4 (07:30→20:16)
[2018-06-19] MEDS: INSULIN GLARGINE 100 UNITS/ML SQ SCH (08:38)
[2018-06-19] MEDS: GABAPENTIN 100 MG CAP PO SCH ×2 (08:40→20:16)
[2018-06-19] MEDS: CALCIUM CARBONATE CHEW 500MG TAB PO SCH ×3 (08:40→16:13)
[2018-06-19] MEDS: TAMSULOSIN 0.4 MG SR CAP PO SCH (08:40)
--- NOTE | 2018-06-19 10:05 | P.PN ---
Subjective Date of Service: 06/19/18 Primary Care Provider: Dr. Moody; Nephrology-Dr. Ashraf Chief Complaint: End-stage renal disease Subjective: Improving Physical Examination - Vital Signs Temperature: 98.1 F Blood Pressure: 142/73 Pulse: 85 Respirations: 18 Pulse Ox (%): 97 - Physical Exam General: Alert, In no apparent distress, Oriented x3, Cooperative HEENT: Atraumatic Neck: Supple Respiratory: Clear to auscultation bilaterally, Normal air movement Cardiovascular: Normal pulses, Regular rate/rhythm Gastrointestinal: Normal bowel sounds, Soft and benign, Non-distended, No tenderness, No masses, No rebound, No guarding Musculoskeletal: No erythema, No tenderness, No warmth Integumentary: No tenderness/swelling, No erythema, No warmth, No cyanosis Neurological: Normal speech, Normal strength at 5/5 x4 extr, Normal tone, Normal affect Other Physical/Emotional Findings: Tessiocatheter in place - Studies Laboratory Data (last 24 hrs) 06/19/18 03:40: Sodium 137, Potassium 3.3 L, BUN 56 H, Creatinine 4.70 H D, Glucose 99, Phosphorus 5.3 H, Magnesium 2.2 06/19/18 03:40: WBC 8.1, Hgb 9.1 L, Hct 26.2 L, Plt Count 243 Microbiology Data (last 24 hrs): 06/17/18 09:50 Clean Catch Urine Rosamond Count - Final <10,000 CFU/ML. 06/17/18 09:50 Clean Catch Urine - Final Medications List Reviewed: Yes Assessment & Plan Discharge Plan: Home (Likely with home health and physical therapy) Plan to discharge in: 24 Hours Physician Review Additional Text: Impression: End-stage renal disease requiring dialysis Status post dialysis catheter placement Hyponatremia Anemia of chronic disease Diabetes mellitus type 2 uncontrolled Hypertension History of atrial fibrillation Diabetic neuropathy BPH Plan: End-stage renal disease requiring dialysis: Patient doing well with dialysis. Case discussed with nephrology yesterday. Patient to have outpatient dialysis arranged. Will have social sciences instructor arrange for outpatient dialysis. Once this is set up then he can be discharged. Patient will be assessed by physical therapy to determine whether he will require home health and physical therapy at discharge or if the patient will need skilled placement. Status post dialysis catheter placement: Patient doing well. Hyponatremia: This appears resolved. Will continue to monitor closely. Nephrology continues with dialysis Anemia of chronic disease: Will monitor closely. Overall stable. Diabetes mellitus type 2 uncontrolled: Medication adjusted yesterday. A1c 16. Will continue to monitor and address appropriately. Hypertension: Nephrology discontinued carvedilol. Blood pressure stable off medication. Patient is taking Flomax. History of atrial fibrillation: Will monitor on telemetry. Continue with carvedilol. Will monitor closely. Will provide DVT prophylaxis. Diabetic neuropathy: Will continue with medication for pain. Nephrology decreased Neurontin. BPH: Patient continues with medication-Flomax Time Spent Managing Pts Care (In Minutes): 55
[2018-06-19] MEDS: TRAMADOL HCL 50 MG TAB PO PRN (12:15)
--- NOTE | 2018-06-19 14:42 | P.DS ---
Admission Date: 06/16/18 Discharge Date: 06/19/18 Primary Care Provider: Dr. Moody; Nephrology-Dr. Ashraf Disposition: DC HOME/HOME HEALTH CARE Discharge Condition: GOOD Reason for Admission: End-stage renal disease Consultations: Nephrology-Dr. Ashraf Procedures: Surgery: Date of Procedure: 06/16/2018 Surgeon: Estiven Kapoor MD Preoperative Diagnosis: End-stage renal disease. Postoperative Diagnosis: End-stage renal disease. Procedure: Right subclavian Tesio catheter placement and interpretation of intraoperative fluoroscopy. Estimated Blood Loss: Minimal. Specimen: None. Findings: Difficult to access right IJ vein. Therefore, the right subclavian vein was used. Findings: As above. Anesthesia: MAC. Complications: None. Medical Problem List: End-stage renal disease requiring dialysis Status post dialysis catheter placement Hyponatremia Anemia of chronic disease Diabetes mellitus type 2 uncontrolled Hypertension History of atrial fibrillation Diabetic neuropathy BPH Secondary hypoparathyroidism Brief History of Present Illness: 77-year-old male currently in surgery recovery area after placement of Tessio catheter by surgery. Patient requires dialysis. Patient was admitted for placement of catheter into begin dialysis. Patient has end-stage renal disease, diabetes and hypertension. Patient followed by nephrology. Patient had procedure today. I was asked to admit the patient to further address. Nephrology is aware of the patient. On lab white count 9.2, hemoglobin 11. Sodium 119. Potassium 3.0. Chloride 71 , bicarb 31, BUN of 126. Creatinine 8.1 with a GFR 7. Glucose 664. Calcium 8.3. Chest x-ray post catheter placement shows no pneumothorax. Patient currently stable this time. Hospital Course: Patient presented to the hospital to initiate dialysis. Surgery was performed to place a tessio catheter to start dialysis. Patient tolerated the procedure well. Thereafter patient begin dialysis. Patient was seen and evaluated by nephrology. Patient was initially sent to the ICU due to hyponatremia. After dialysis this resolved. At discharge dialysis has been arranged. Outpatient dialysis this start on Tuesday at 11:00 a.m.. Patient will continue with Tuesday, Tuesday and Tuesday dialysis. Patient will follow up with nephrology as directed. Patient will continue with a 1500 cc per day fluid restriction and low-salt diet. Patient will continue with renal diet. Recommendation on no further use of nonsteroidal anti-inflammatories medications will need to be renally dosed. Prior to discharge home health and physical therapy will be arranged. Patient presented with hyponatremia. This resolved after dialysis. This can be further monitored as an outpatient. Patient has anemia of chronic disease. This remained stable. This can be monitored as an outpatient by nephrology. Patient has hypertension. Medication has been adjusted. Patient will no longer take carvedilol. Patient will continue with Flomax 0.4 mg daily. Recommendation is to maintain blood pressures less than 150/80. Further adjustment can be done by nephrology. Patient has BPH. Patient with history of urinary retention. Patient able to urinate. At discharge, patient will continue with Flomax 0.4 mg daily. Patient has history of atrial fibrillation. Patient continue with aspirin 81 mg daily. Patient has diabetes mellitus type 2. A1c 16. Medication adjusted. Glimepiride and Tradjenta have been discontinued. Patient has been started on basal insulin. At discharge he will continue with Lantus 20 units subcu every night. He is to monitor his blood sugars at least twice daily. Recommendation is to maintain blood sugars less 140 fasting and less than 200 after meals. Further adjustment can be done by his PCP. Patient has secondary hypoparathyroidism. Patient continue with calcium 500 mg daily and calcitriol 0.25 mcg 1 pill every 48 hr. Further adjustment in medication can be done by nephrology. Patient has diabetic neuropathy. Patient started on medication. Patient will continue with Neurontin 100 mg 1 pill twice daily. Recommendation on no further use of nonsteroidal anti-inflammatories. Future medications will need to be renally dosed. Vital Signs/Physical Exam: Temp Pulse Resp BP Pulse Ox 98.1 F 85 18 142/73 H 97 06/19/18 10:07 06/19/18 10:07 06/19/18 10:07 06/19/18 10:06/19/18 10:07 General: Alert, In no apparent distress, Oriented x3, Cooperative HEENT: Atraumatic Neck: Supple Respiratory: Clear to auscultation bilaterally, Normal air movement Cardiovascular: Normal pulses, Regular rate/rhythm Gastrointestinal: Normal bowel sounds, Soft and benign, Non-distended, No tenderness, No masses, No rebound, No guarding Musculoskeletal: No erythema, No tenderness, No warmth Integumentary: No tenderness/swelling, No erythema, No warmth, No cyanosis Neurological: Normal speech, Normal strength at 5/5 x4 extr, Normal tone, Normal affect Other Physical/Emotional Findings: Tessiocatheter in place Laboratory Data at Discharge: WBC 8.1 K/uL (4.3-10.9) 06/19/18 03:40 Hgb 9.1 g/dL (13.6-17.9) L 06/19/18 03:40 Hct 26.2 % (39.6-49.0) L 06/19/18 03:40 Plt Count 243 K/uL (152-406) 06/19/18 03:40 Sodium 137 mmol/L (136-145) 06/19/18 03:40 Potassium 3.3 mmol/L (3.5-5.1) L 06/19/18 03:40 BUN 56 mg/dL (7-18) H 06/19/18 03:40 Creatinine 4.70 mg/dL (0.55-1.3) H D 06/19/18 03:40 Glucose 99 mg/dL (74-106) 06/19/18 03:40 Uric Acid 7.6 mg/dL (3.5-7.2) H D 06/17/18 04:56 Phosphorus 5.3 mg/dL (2.5-4.9) H 06/19/18 03:40 Magnesium 2.2 mg/dL (1.8-2.4) 06/19/18 03:40 Home Medications: Calcitrol [Rocaltrol*] 0.25 mcg PO Q48H #30 cap 06/19/18 Calcium Carbonate [Tums Regular*] 500 mg PO AC #30 tab 06/19/18 Gabapentin [Neurontin*] 100 mg PO BID #60 cap 06/19/18 Insulin Glargine,Hum.rec.anlog [Lantus Solostar] 20 unit SQ BEDTIME #1 addy 06/19 Tamsulosin [Flomax*] 0.4 mg PO DAILY #30 cap 06/19/18 New Medications: Calcitrol [Rocaltrol*] 0.25 mcg PO Q48H #30 cap Calcium Carbonate [Tums Regular*] 500 mg PO AC #30 tab Gabapentin [Neurontin*] 100 mg PO BID #60 cap Insulin Glargine,Hum.rec.anlog [Lantus Solostar] 20 unit SQ BEDTIME #1 addy Tamsulosin [Flomax*] 0.4 mg PO DAILY #30 cap Patient Discharge Instructions: 1. Patient will need a follow up with PCP in 1 week to follow up this hospitalization. 2. Patient presented to the hospital to initiate dialysis. Surgery was performed to place a tessio catheter to start dialysis. Patient tolerated the procedure well. Thereafter patient begin dialysis. Patient was seen and evaluated by nephrology. Patient was initially sent to the ICU due to hyponatremia. After dialysis this resolved. At discharge dialysis has been arranged. Outpatient dialysis this start on Tuesday at 11:00 a.m.. Patient will continue with Tuesday, Tuesday and Tuesday dialysis. Patient will follow up with nephrology as directed. Patient will continue with a 1500 cc per day fluid restriction and low-salt diet. Patient will continue with renal diet. Recommendation on no further use of nonsteroidal anti-inflammatories medications will need to be renally dosed. 3. Patient presented with hyponatremia. This resolved after dialysis. This can be further monitored as an outpatient. 4. Patient has anemia of chronic disease. This remained stable. This can be monitored as an outpatient by nephrology. 5. Patient has hypertension. Medication has been adjusted. Patient will no longer take carvedilol. Patient will continue with Flomax 0.4 mg daily. Recommendation is to maintain blood pressures less than 150/80. Further adjustment can be done by nephrology. 6. Patient has BPH. Patient with history of urinary retention. Patient able to urinate. At discharge, patient will continue with Flomax 0.4 mg daily. 7. Patient has history of atrial fibrillation. Patient continue with aspirin 81 mg daily. 8. Patient has diabetes mellitus type 2. A1c 16. Medication adjusted. Glimepiride and Tradjenta have been discontinued. Patient has been started on basal insulin. At discharge he will continue with Lantus 20 units subcu every night. He is to monitor his blood sugars at least twice daily. Recommendation is to maintain blood sugars less 140 fasting and less than 200 after meals. Further adjustment can be done by his PCP. 9. Patient has secondary hypoparathyroidism. Patient continue with calcium 500 mg daily and calcitriol 0.25 mcg 1 pill every 48 hr. Further adjustment in medication can be done by nephrology. 10. Patient has diabetic neuropathy. Patient started on medication. Patient will continue with Neurontin 100 mg 1 pill twice daily. Recommendation on no further use of nonsteroidal anti-inflammatories. Future medications will need to be renally dosed. Diet: Renal Activity: Fall precautions Followup: Sherrell Ashraf MD [ACTIVE - CAN ADMIT] - Fransisco AZUL,Vivian Christianson DO [Primary Care Provider] - Time spent managing pt's care (in minutes): 55
[2018-06-19] MEDS ORDERED: NA CHLORIDE 0.9% 250 ML IV PRN (15:20)
--- NOTE | 2018-06-19 15:38 | P.PN ---
Subjective Date of Service: 06/19/18 Primary Care Provider: Dr. Moody; Nephrology-Dr. Ashraf Chief Complaint: End-stage renal disease Subjective: Other (headache) Review of Systems General: Unremarkable Eyes: Other ENT: Unremarkable Respiratory: Unremarkable Cardiovascular: Unremarkable Gastrointestinal: Unremarkable Genitourinary: Unremarkable Musculoskeletal: Unremarkable Physical Examination - Vital Signs Temperature: 96.9 F Blood Pressure: 134/71 Pulse: 80 Respirations: 18 Pulse Ox (%): 97 - Physical Exam General: Oriented x3 Neck: Supple Cardiovascular: Normal pulses, Normal S1 S2, No gallops, No rubs Gastrointestinal: No tenderness Urinary: Dialysis catheter Other Physical/Emotional Findings: Tessiocatheter in place - Studies Laboratory Data (last 24 hrs) 06/19/18 03:40: Sodium 137, Potassium 3.3 L, BUN 56 H, Creatinine 4.70 H D, Glucose 99, Phosphorus 5.3 H, Magnesium 2.2 06/19/18 03:40: WBC 8.1, Hgb 9.1 L, Hct 26.2 L, Plt Count 243 Microbiology Data (last 24 hrs): 06/17/18 09:50 Clean Catch Urine [place] Count - Final <10,000 CFU/ML. 06/17/18 09:50 Clean Catch Urine - Final Medications List Reviewed: Yes Assessment And Plan - Current Problems (Diagnosis) (1) ESRD (end stage renal disease) Onset Date: 05/23/18 Current Visit: Yes Status: Acute - Plan A 77 Y/O man with PMHx of DM , HTN, ESRD started on HD this admission Via Rt Subclavian catheter had HD today (06/19)with no fluid removal pt was complaining of headache, noticed to have orthodontic changes Assessment And Plan: End-stage renal disease. Will Cont MWF , will need AVF placement in the future Hypertension, have orthostatic changes, will give Ns bolus Urine retention. on Flomax. Hyponatremia, on admission due to fluid overload resolved. Uremic Encephalopathy, resolved. Neuropathy. gabapentin reduced to twice a day. Secondary hyperparathyroidism. Continue Tums and calcitriol. Anemia: monitor CBC, get Iron panel and ferritin can be discharged from nephrology point of view , once Orthodontic symptoms resolved Please feel Free to contact with any question
[2018-06-19] MEDS: CODEINE 30MG/APAP 300MG TAB PO PRN (15:59)
[2018-06-19] MEDS: ENOXAPARIN 30 MG/0.3 ML SQ SCH (16:14)
[2018-06-20 05:18] VITALS: BMI 21.9
[2018-06-20 06:31] LABS: Albumin 2.4 g/dL (3.4-5.0); Magnesium 2.4 mg/dL (1.8-2.4)
[2018-06-20] MEDS: INSULIN -REGULAR HUMAN 50 UNIT/0.5 ML ML SQ SCH ×4 (07:30→20:23)
[2018-06-20] MEDS: INSULIN GLARGINE 100 UNITS/ML SQ SCH (10:13)
[2018-06-20] MEDS: TAMSULOSIN 0.4 MG SR CAP PO SCH (10:14)
[2018-06-20] MEDS: CALCIUM CARBONATE CHEW 500MG TAB PO SCH ×3 (10:15→17:12)
[2018-06-20] MEDS: GABAPENTIN 100 MG CAP PO SCH ×2 (10:15→20:23)
[2018-06-20] MEDS ORDERED: EPOETIN ALFA 10,000 UNIT/ML VIAL IV SCH (12:30)
--- NOTE | 2018-06-20 12:38 | P.PN ---
Subjective Date of Service: 06/20/18 Primary Care Provider: Dr. Moody; Nephrology-Dr. Ashraf Chief Complaint: End-stage renal disease Subjective: Improving Physical Examination - Vital Signs Temperature: 97.9 F Blood Pressure: 133/81 Pulse: 81 Respirations: 16 Pulse Ox (%): 99 - Physical Exam General: Alert, In no apparent distress, Oriented x3, Cooperative HEENT: Atraumatic Neck: Supple Respiratory: Clear to auscultation bilaterally, Normal air movement Cardiovascular: Normal pulses, Regular rate/rhythm Gastrointestinal: Normal bowel sounds, Soft and benign, Non-distended, No tenderness, No masses, No rebound, No guarding Musculoskeletal: No erythema, No tenderness, No warmth Integumentary: No tenderness/swelling, No erythema, No warmth, No cyanosis Neurological: Normal speech, Normal strength at 5/5 x4 extr, Normal tone Other Physical/Emotional Findings: Tessiocatheter in place - Studies Laboratory Data (last 24 hrs) 06/20/18 05:23: Sodium 135 L, Potassium 4.0, BUN 41 H, Creatinine 3.90 H, Glucose 77, Phosphorus 4.0, Magnesium 2.4 Microbiology Data (last 24 hrs): 06/17/18 09:50 Clean Catch Urine [place] Count - Final <10,000 CFU/ML. 06/17/18 09:50 Clean Catch Urine - Final Medications List Reviewed: Yes Assessment & Plan Discharge Plan: Other (Skilled placement facility) Plan to discharge in: 24 Hours Physician Review Additional Text: Impression: End-stage renal disease requiring dialysis Status post dialysis catheter placement Hyponatremia Anemia of chronic disease Diabetes mellitus type 2 uncontrolled Hypertension History of atrial fibrillation Diabetic neuropathy BPH Plan: End-stage renal disease requiring dialysis: Patient doing well with dialysis. Case discussed with nephrology. Will discontinue Flomax due to orthostatic hypotension yesterday. Await skilled placement approval. Will continue physical therapy. Will monitor blood pressures closely. Dialysis has been arranged as an outpatient. Patient will continue with dialysis Mondays, Wednesdays and Fridays. Education on dialysis will be provided. Status post dialysis catheter placement: Patient doing well. Hyponatremia: This appears resolved. Will continue to monitor closely. Nephrology continues with dialysis Anemia of chronic disease: Will monitor closely. Overall stable. Diabetes mellitus type 2 uncontrolled: Medication adjusted yesterday. A1c 16. Will continue to monitor and address appropriately. Hypertension: Nephrology discontinued carvedilol. Flomax discontinued due to orthostatics hypotension, will monitor off medication History of atrial fibrillation: Will monitor on telemetry. Patient not on chronic anti coagulation therapy. Will continue with aspirin daily. Will monitor closely. Will provide DVT prophylaxis. Diabetic neuropathy: Will continue with medication for pain. Nephrology decreased Neurontin twice daily. BPH: Flomax discontinued due to orthostatics hypotension Orthostatic hypotension: Flomax discontinued. Patient off blood pressure medication at this time. Time Spent Managing Pts Care (In Minutes): 55
[2018-06-20] MEDS: ENOXAPARIN 30 MG/0.3 ML SQ SCH (17:13)
--- NOTE | 2018-06-20 17:51 | PN ---
Date of Progress Note: 06/20/2018 Subjective: The patient doing well. No nausea. No vomiting. Physical Examination: Vital Signs: Blood pressure of 133/81, pulse of 81, afebrile. Chest: Clear to auscultation. Heart: S1, S2. Systolic murmur. Abdomen: Soft, nontender. Extremities: No edema. Current Medications: The patient on its include: 1.Flomax. 2.Albumin. 3.Lovenox. 4.Tums. 5.Gabapentin. 6.Calcitriol. Laboratory Data: Sodium 135 potassium 4 bicarb 31, BUN 41, creatinine 3.9, calcium 8.2, phosphorus 4 . H and H 9.1/26.2. Assessment And Plan: 1.End-stage renal disease. We will continue the patient on dialysis. The patient is going to be sc heduled for dialysis tomorrow. We will dialyze the patient on blood flow of 300. We will not go to remove the fluid as the patient had still good urine output. 2.Anemia of chronic kidney disease. Continue Epogen. Status post transfusion. 3.Hyponatremia, resolved. 4.Hyperglycemia, resolved. Continue current treatment with the primary. The patient cleared from t he renal standpoint for discharge planning to follow up as outpatient dialysis. 5.Hypotension, orthostatic. I going to discontinue Flomax. We will follow up. KASSIE Voice ID: [id number] Report ID: [id number]
[2018-06-20] MEDS: CALCITROL 0.25 MCG CAP PO SCH (20:23)
[2018-06-20 22:02] VITALS: O2SAT 95
[2018-06-21 06:47] LABS: Albumin 2.1 g/dL (3.4-5.0); Magnesium 2.2 mg/dL (1.8-2.4); Phosphorus 4.2 mg/dL (2.5-4.9); Potassium 3.9 mmol/L (3.5-5.1)
[2018-06-21] MEDS: INSULIN -REGULAR HUMAN 50 UNIT/0.5 ML ML SQ SCH ×3 (07:30→16:30)
[2018-06-21] MEDS: INSULIN GLARGINE 100 UNITS/ML SQ SCH (08:40)
[2018-06-21] MEDS: CALCIUM CARBONATE CHEW 500MG TAB PO SCH ×3 (08:40→16:46)
[2018-06-21] MEDS: GABAPENTIN 100 MG CAP PO SCH (08:40)
--- NOTE | 2018-06-21 12:50 | P.DS ---
Admission Date: 06/16/18 Discharge Date: 06/21/18 Primary Care Provider: Dr. Moody; Nephrology-Dr. Ashraf Disposition: TRANSFER TO SNF - MEDICAL Discharge Condition: GOOD Reason for Admission: End-stage renal disease Consultations: Nephrology-Dr. Ashraf Surgery-Dr. Kapoor Procedures: Surgery: Tessio renal dialysis catheter placement Medical problem list: End-stage renal disease requiring dialysis Status post dialysis catheter placement Hyponatremia resolved Anemia of chronic disease Diabetes mellitus type 2 uncontrolled-hyperglycemia Hypertension History of atrial fibrillation Diabetic neuropathy BPH Brief History of Present Illness: 77-year-old male currently in surgery recovery area after placement of Tessio catheter by surgery. Patient requires dialysis. Patient was admitted for placement of catheter into begin dialysis. Patient has end-stage renal disease, diabetes and hypertension. Patient followed by nephrology. Patient had procedure today. I was asked to admit the patient to further address. Nephrology is aware of the patient. On lab white count 9.2, hemoglobin 11. Sodium 119. Potassium 3.0. Chloride 71 , bicarb 31, BUN of 126. Creatinine 8.1 with a GFR 7. Glucose 664. Calcium 8.3. Chest x-ray post catheter placement shows no pneumothorax. Patient currently stable this time. Hospital Course: Patient presented to the hospital to initiate dialysis. Surgery was performed to place a tessio catheter to start dialysis. Patient tolerated the procedure well. Thereafter patient begin dialysis. Patient was seen and evaluated by nephrology. Patient was initially sent to the ICU due to hyponatremia. After dialysis this resolved. Patient was evaluated by physical therapy. Skilled placement was recommended. Patient approved to go to skilled facility to continue rehabilitation. At discharge patient will continue rehabilitation at skilled facility. Arrangements have been made so that he can continue with dialysis as an outpatient. Dialysis will be set up on Mondays, Wednesdays and Fridays. Patient will continue with a 1500 cc per day fluid restriction and low -salt diet. Patient will continue with renal diet. Recommendation on no further use of nonsteroidal anti-inflammatories medications will need to be renally dosed. Prior to discharge home health and physical therapy will be arranged. Patient presented with hyponatremia. This resolved after dialysis. This can be further monitored as an outpatient. Patient has anemia of chronic disease. This remained stable. This can be monitored as an outpatient by nephrology. Patient has hypertension. Medication has been adjusted. Patient will no longer take blood pressure medication due to hypotension. Blood pressures have remained stable off medication. Recommendation is to maintain blood pressures less than 150/80. Further adjustment can be done by nephrology. Patient has BPH. This can be monitored as an outpatient by urology. Patient has history of atrial fibrillation. Patient continue with aspirin 81 mg daily. Patient has diabetes mellitus type 2. A1c 16. Medication adjusted. Glimepiride and Tradjenta have been discontinued. Patient has been started on basal insulin. At discharge he will continue with Lantus 20 units subcu every night. He is to monitor his blood sugars at least twice daily. Recommendation is to maintain blood sugars less 140 fasting and less than 200 after meals. Further adjustment can be done by his PCP. Patient has secondary hypoparathyroidism. Patient continue with calcium 500 mg daily and calcitriol 0.25 mcg 1 pill every 48 hr. Further adjustment in medication can be done by nephrology. Patient has diabetic neuropathy. Patient started on medication. Patient will continue with Neurontin 100 mg 1 pill twice daily as needed for pain. Recommendation on no further use of nonsteroidal anti-inflammatories. Future medications will need to be renally dosed. Vital Signs/Physical Exam: Temp Pulse Resp BP Pulse Ox 98.4 F 84 20 118/62 0 L 06/21/18 08:00 06/21/18 08:00 06/21/18 08:00 06/21/18 08:00 06/21/18 08:00 General: Alert, In no apparent distress, Oriented x3, Cooperative HEENT: Atraumatic, Mucous membr. moist/pink Neck: Supple, No Thyromegaly Respiratory: Clear to auscultation bilaterally, Normal air movement Cardiovascular: Normal pulses, Regular rate/rhythm Gastrointestinal: Normal bowel sounds, Soft and benign, Non-distended, No tenderness, No masses, No rebound, No guarding Musculoskeletal: No erythema, No tenderness, No warmth Integumentary: No tenderness/swelling, No erythema, No warmth, No cyanosis Neurological: Normal speech, Normal strength at 5/5 x4 extr, Normal tone, Normal affect Other Physical/Emotional Findings: Tessiocatheter in place Laboratory Data at Discharge: WBC 8.1 K/uL (4.3-10.9) 06/19/18 03:40 Hgb 9.1 g/dL (13.6-17.9) L 06/19/18 03:40 Hct 26.2 % (39.6-49.0) L 06/19/18 03:40 Plt Count 243 K/uL (152-406) 06/19/18 03:40 Sodium 135 mmol/L (136-145) L 06/21/18 05:27 Potassium 3.9 mmol/L (3.5-5.1) 06/21/18 05:27 BUN 57 mg/dL (7-18) H 06/21/18 05:27 Creatinine 4.90 mg/dL (0.55-1.3) H D 06/21/18 05:27 Glucose 139 mg/dL (74-106) H 06/21/18 05:27 Uric Acid 7.6 mg/dL (3.5-7.2) H D 06/17/18 04:56 Phosphorus 4.2 mg/dL (2.5-4.9) 06/21/18 05:27 Magnesium 2.2 mg/dL (1.8-2.4) 06/21/18 05:27 Home Medications: Calcitrol [Rocaltrol*] 0.25 mcg PO Q48H #30 cap 06/19/18 Calcium Carbonate [Tums Regular*] 500 mg PO AC #30 tab 06/19/18 Gabapentin [Neurontin*] 100 mg PO BID #60 cap 06/19/18 Insulin Glargine,Hum.rec.anlog [Lantus Solostar] 20 unit SQ BEDTIME #1 addy 06/19 New Medications: Calcitrol [Rocaltrol*] 0.25 mcg PO Q48H #30 cap Calcium Carbonate [Tums Regular*] 500 mg PO AC #30 tab Gabapentin [Neurontin*] 100 mg PO BID #60 cap Insulin Glargine,Hum.rec.anlog [Lantus Solostar] 20 unit SQ BEDTIME #1 addy Patient Discharge Instructions: 1. Patient will need a follow up with PCP in 1 week to follow up this hospitalization. 2. Patient presented to the hospital to initiate dialysis. Surgery was performed to place a tessio catheter to start dialysis. Patient tolerated the procedure well. Thereafter patient begin dialysis. Patient was seen and evaluated by nephrology. Patient was initially sent to the ICU due to hyponatremia. After dialysis this resolved. Patient was evaluated by physical therapy. Skilled placement was recommended. Patient approved to go to skilled facility to continue rehabilitation. At discharge patient will continue rehabilitation at skilled facility. Arrangements have been made so that he can continue with dialysis as an outpatient. Dialysis will be set up on Mondays, Wednesdays and Fridays. Patient will continue with a 1500 cc per day fluid restriction and low-salt diet. Patient will continue with renal diet. Recommendation on no further use of nonsteroidal anti-inflammatories medications will need to be renally dosed. Prior to discharge home health and physical therapy will be arranged. 3. Patient presented with hyponatremia. This resolved after dialysis. This can be further monitored as an outpatient. 4. Patient has anemia of chronic disease. This remained stable. This can be monitored as an outpatient by nephrology. 5. Patient has hypertension. Medication has been adjusted. Patient will no longer take blood pressure medication due to hypotension. Blood pressures have remained stable off medication. Recommendation is to maintain blood pressures less than 150/80. Further adjustment can be done by nephrology. 6. Patient has BPH. This can be monitored as an outpatient by urology. 7. Patient has history of atrial fibrillation. Patient continue with aspirin 81 mg daily. 8. Patient has diabetes mellitus type 2. A1c 16. Medication adjusted. Glimepiride and Tradjenta have been discontinued. Patient has been started on basal insulin. At discharge he will continue with Lantus 20 units subcu every night. He is to monitor his blood sugars at least twice daily. Recommendation is to maintain blood sugars less 140 fasting and less than 200 after meals. Further adjustment can be done by his PCP. 9. Patient has secondary hypoparathyroidism. Patient continue with calcium 500 mg daily and calcitriol 0.25 mcg 1 pill every 48 hr. Further adjustment in medication can be done by nephrology. 10. Patient has diabetic neuropathy. Patient started on medication. Patient will continue with Neurontin 100 mg 1 pill twice daily as needed for pain. Recommendation on no further use of nonsteroidal anti-inflammatories. Future medications will need to be renally dosed. Diet: Renal Activity: Fall precautions Followup: Sherrell Ashraf MD [ACTIVE - CAN ADMIT] - Fransisco AZUL,Vivian Christianson DO [Primary Care Provider] - Time spent managing pt's care (in minutes): 55
[2018-06-21] MEDS: ENOXAPARIN 30 MG/0.3 ML SQ SCH (17:30)
[2018-06-21 17:34] VITALS: BP 152/77; TEMP 98
--- NOTE | 2018-06-22 04:40 | PN ---
Date of Progress Note: 06/21/2018 Subjective: The patient is doing well. No nausea. No vomiting. Blood sugar has been to day. Physical Examination: Vital Signs: Blood pressure 152/77, pulse of 89. Chest: Clear to auscultation. Heart: S1, S2. Regular. Abdomen: Soft, nontender. Extremities: No edema. Laboratory Data: H and H 9.1/26.2. Sodium 135, potassium 3.9, bicarb 30, BUN 57, creatinine 4.9, ca lcium 8, phosphorus 4.2. Medications: Current medications the patient on, its include calcitriol, Epogen, gabapentin, insulin , tramadol. Assessment And Plan: 1.End-stage renal disease. We will continue dialyzing the patient. The patient is going to be dial yzed today. 2.Hypertension, controlled, optimal. Off blood pressure medication. We will monitor. 3.Diabetes as by primary. 4.Hyponatremia, resolved. 5.Hyperkalemia, resolved. 6.Uremia, encephalopathy, has been resolved. 7.Acidosis, resolved. MEKHI/SCOOBY Voice ID: [id number] Report ID: [id number]
== END 2018-06-21 18:48 | DRG 673 ==
LOC: OR 07:33 → ERHOLD 10:34 → 4TH 12:18 → 3RD-ICU 16:45 → 4TH 06-17 15:00
PROVIDERS: ADMIT Surgery; ATTEND Family Medicine
PROC: 02HV33Z Insertion of Infusion Device into Superior Vena Cava, Percutaneous Approach (ICD-10-PCS; 2018-06-16)
PROC: B518YZA Fluoroscopy of Superior Vena Cava using Other Contrast, Guidance (ICD-10-PCS; 2018-06-16)
PROC: 5A1D70Z Performance of Urinary Filtration, Intermittent, Less than 6 Hours Per Day (ICD-10-PCS; 2018-06-16)
PROC: 0JHD3XZ Insertion of Tunneled Vascular Access Device into Right Upper Arm Subcutaneous Tissue and Fascia, Percutaneous Approach (ICD-10-PCS; principal; 2018-06-16 09:00)
PROC: 5A1D70Z Performance of Urinary Filtration, Intermittent, Less than 6 Hours Per Day (ICD-10-PCS; 2018-06-17)
PROC: 5A1D70Z Performance of Urinary Filtration, Intermittent, Less than 6 Hours Per Day (ICD-10-PCS; 2018-06-19)
PROC: 5A1D70Z Performance of Urinary Filtration, Intermittent, Less than 6 Hours Per Day (ICD-10-PCS; 2018-06-21)
DX: I12.0 Hypertensive chronic kidney disease with stage 5 chronic kidney disease or end stage renal disease (principal); N18.6 End stage renal disease; E87.1 Hypo-osmolality and hyponatremia; E87.3 Alkalosis; N25.81 Secondary hyperparathyroidism of renal origin; G93.49 Other encephalopathy; E87.2 Acidosis; E11.22 Type 2 diabetes mellitus with diabetic chronic kidney disease; E11.65 Type 2 diabetes mellitus with hyperglycemia; Z79.4 Long term (current) use of insulin; D63.1 Anemia in chronic kidney disease; I48.91 Unspecified atrial fibrillation; E11.40 Type 2 diabetes mellitus with diabetic neuropathy, unspecified; N40.0 Benign prostatic hyperplasia without lower urinary tract symptoms; I35.0 Nonrheumatic aortic (valve) stenosis; E11.21 Type 2 diabetes mellitus with diabetic nephropathy; E11.319 Type 2 diabetes mellitus with unspecified diabetic retinopathy without macular edema; E87.8 Other disorders of electrolyte and fluid balance, not elsewhere classified; Z86.73 Personal history of transient ischemic attack (TIA), and cerebral infarction without residual deficits; E87.6 Hypokalemia; R33.8 Other retention of urine; R39.2 Extrarenal uremia; I95.1 Orthostatic hypotension
CPT/HCPCS: 36415; 71045; 76000; 80048; 80069; 81003; 81015; 82010; 82805; 82947; 82962; 83036; 83735; 83935; 84132; 84300; 84439; 84443; 84550; 85025; 87086; 87088; 90935; 97163; C1752; J0690; J1644; J1650; J2250; J3010; J7030; Q4081

== ENCOUNTER 2018-10-18 11:10 | Inpatient (IN) | payer OTHER ==
[2018-10-18 11:52] LABS: Absolute Lymphocytes (CBC) 0.6 K/uL (0.7-4.9); Absolute Neutrophil 9.1 K/uL (1.8-8.0); Basophils % 0.7 % (0-1.3); Eosinophils % 1.1 % (0-4.4); Hematocrit 37.8 % (39.6-49.0); Lymphocytes % 5.7 % (15.3-44.8); MPV 9.6 fL (7.6-11.3); Monocytes % 8.9 % (3.3-12.3); RBC Red Blood Cell Count 4.57 M/uL (4.33-5.43)
[2018-10-18 12:12] LABS: Potassium 3.6 mmol/L (3.5-5.1)
--- NOTE | 2018-10-18 12:53 | RAD REPORT ---
EXAM DESCRIPTION: RAD - Chest Pa And Lat (2 Views) - 10/18/2018 12:48 pm CLINICAL HISTORY: weakness/missed dialysis x 2 Chest pain. COMPARISON: Chest Single View dated 06/16/2018; Chest Pa And Lat (2 Views) dated 06/06/2018; Chest Sin gle View dated 05/26/2018; Chest Single View dated 03/01/2018 FINDINGS: Airspace opacity is present in right upper lobe as well as the posterior right lower lobe with small pleural effusions, suspicious for pneumonia. The heart is normal in size. Right-sided dial ysis catheter is in place. IMPRESSION: Right sided multifocal pneumonia pattern.
--- NOTE | 2018-10-18 12:58 | RAD REPORT ---
EXAM DESCRIPTION: CT - Head C Spine Mpr Wo Con - 10/18/2018 12:41 pm CLINICAL HISTORY: Head and neck injury status post fall. Head and neck pain. Generalize weakness COMPARISON: January 2018 TECHNIQUE: Computed axial tomography of the head and cervical spine was obtained. Sagittal and coronal reconstruction was performed. All CT scans are performed using dose optimization technique as appropriate and may include automated exposure control or mA/KV adjustment according to patient size. FINDINGS: An intracranial bleed is not seen. The ventricles are normal in caliber. An extra-axial fl uid collection is not noted.Fluid within the visualized sinuses and mastoids is not seen A cervical fracture is not visualized. No dislocation is noted. Spondylosis involves C6-7. Significan t spinal stenosis is not visualized A 5.5 centimeter lipoma is present within the posterior subcutaneous tissues IMPRESSION: No acute intracranial abnormality is seen. A cervical fracture is not visualized. If the patient continues to have symptoms to suggest intracra nial /spinal cord pathology then MRI would be recommended
--- NOTE | 2018-10-18 13:06 | ER ---
Nurse's Notes [facility] Name: Jonathan Agudelo Age: 77 yrs Sex: Male : 1940 Arrival Date: 10/18/2018 Time: 11:14 Bed 13 Private MD: Vivian Moody H Diagnosis: Pneumonia, unspecified organism;End stage renal disease;Weakness Presentation: 10/18 11:22 Presenting complaint: Patient states: generalized weakness since last night. Pt states aa5 "I fell three times last night because I was so weak". Pt reports last dialysis was Tuesday. Pt denies cough, denies fever, denies N/V/D. Transition of care: patient was not received from another setting of care. Onset of symptoms was October 2018. Care prior to arrival: None. 11:22 Method Of Arrival: Wheelchair aa5 11:22 Acuity: AAMIR 3 aa5 14:41 Risk Assessment: Do you want to hurt yourself or someone else? Patient reports no jl7 desire to harm self or others. Initial Sepsis Screen: Does the patient have a suspected source of infection?. Initial Sepsis Screen: Does the patient meet any 2 criteria? No. Patient's initial sepsis screen is negative. Does the patient have a suspected source of infection? No. Patient's initial sepsis screen is negative. Historical: - Allergies: 11:23 No Known Allergies; aa5 - PMHx: 11:23 CVA; Diabetes - NIDDM; ESRD; HTN; Prostate Cancer; Vision problem; Dialysis M-W-F; aa5 - PSHx: 11:23 Prostate removed; Dialysis catheter to chest; aa5 - Immunization history:: Pneumococcal vaccine is up to date, Flu vaccine is up to date. - Social history:: Smoking status: Patient/guardian denies using tobacco. - Ebola Screening: : No symptoms or risks identified at this time. Screenin:08 Abuse screen: Denies threats or abuse. Denies injuries from another. Nutritional jl7 screening: No deficits noted. Tuberculosis screening: No symptoms or risk factors identified. Fall Risk Fall in past 12 months (25 points). No secondary diagnosis (0 pts). IV access (20 points). Ambulatory Aid- None/Bed Rest/Nurse Assist (0 pts). Gait- Weak (10 pts.). Mental Status- Oriented to own ability (0 pts). Total Collier Fall Scale indicates High Risk Score (45 or more points). Fall prevention measures have been instituted. Side Rails Up X 2 Placed Close to Nursing Station Frequent Obs/Assessments Occuring Family Present and informed to notify staff if the need to leave the bedside As available patient and family educated on Fall Prevention Program and Strategies. Assessment: 11:30 General: Appears in no apparent distress. uncomfortable, Behavior is cooperative, jl7 anxious. Pain: Denies pain. Neuro: Level of Consciousness is awake, alert, obeys commands. Cardiovascular: Patient's skin is warm and dry. Respiratory: Airway is patent Respiratory effort is even, unlabored, Respiratory pattern is regular, symmetrical. GI: No signs and/or symptoms were reported involving the gastrointestinal system. : No signs and/or symptoms were reported regarding the genitourinary system. EENT: No signs and/or symptoms were reported regarding the EENT system. Derm: Skin is pink, warm \\T\\ dry. Musculoskeletal: Reports weakness in generalized. 12:14 Reassessment: Critical lab result Creatinine 6.16, ERP notified. jl7 13:30 Reassessment: Patient appears in no apparent distress at this time. No changes from [facility] previously documented assessment. Patient and/or family updated on plan of care and expected duration. Pain level reassessed. Patient is alert, oriented x 3, equal unlabored respirations, skin warm/dry/pink. 14:33 Reassessment: Patient appears in no apparent distress at this time. Patient and/or jl7 family updated on plan of care and expected duration. Pain level reassessed. 14:44 Reassessment: Report called to floor nurse, pt will be going to dialysis prior to being jl7 transferred to the floor. Vital Signs: 11:24 BP 121 / 62; Pulse 74; Resp 16 S; Temp 98.6(TE); Pulse Ox 93% on R/A; Weight 56.7 kg aa5 (R); Pain 0/10; 11:33 Temp 98.8; jl7 12:08 BP 133 / 70; Pulse 74; Resp 16 S; Pulse Ox 97% on 2 lpm NC; jl7 12:30 BP 143 / 76; Pulse 72; Resp 18 S; Pulse Ox 98% on 2 lpm NC; jl7 13:30 BP 140 / 74; Pulse 72; Resp 16; Pulse Ox 98% on 2 lpm NC; jl7 13:30 BP 144 / 71; Pulse 72; Resp 16 S; Pulse Ox 98% on 2 lpm NC; jl7 ED Course: 11:14 Patient arrived in ED. mr 11:14 Vivian Moody DO is Private Physician. mr 11:22 Triage completed. aa5 11:22 Arm band placed on. aa5 11:25 Jaida Dailey RN is Primary Nurse. jl7 11:25 Sonja Tavarez FNP-C is PHCP. snw 11:25 Nolan De MD is Attending Physician. snw 11:45 EKG done, by ammonia refrigeration technician. reviewed by Sonja STARK. 3 11:45 First set of blood cultures drawn by me, Second set of blood cultures drawn by me. mh5 11:49 Initial lab(s) drawn, by wy, sent to lab. First set of blood cultures drawn. Inserted 5 saline lock: 20 gauge in right antecubital area, using aseptic technique. Blood collected. 11:55 Patient has correct armband on for positive identification. Placed in gown. Bed in low mh5 position. Call light in reach. Side rails up X 1. Adult w/ patient. Warm blanket given. fitness supervisor on. Pulse ox on. NIBP on. 11:57 Blood Culture* Sent. mh5 11:57 Chem [address] mh5 12:38 CT completed. Patient tolerated procedure well. Patient moved to CT via stretcher. Patient moved back from CT. 12:41 CT Head C Spine In Process Unspecified. EDMS 12:46 X-ray completed. Patient tolerated procedure well. Patient moved back from radiology. mh1 12:51 Chest Pa And Lat (2 Views) XRAY In Process Unspecified. EDMS 13:05 Rona Moreno MD is Hospitalizing Provider. snw 14:37 No provider procedures requiring assistance completed. Patient admitted, IV remains in jl7 place. intact, No redness/swelling at site. Administered Medications: 13:19 Drug: Cefepime 1 grams Route: IVPB; Rate: 200 ml/hr; Infused Over: 30 mins; Site: right jl7 antecubital; 13:50 Follow up: Response: No adverse reaction; IV Status: Completed infusion jl7 Point of Care Testing: Blood Glucose: 11:33 Blood Glucose: 274 mg/dL; jl7 Ranges: Outcome: 13:06 Decision to Hospitalize by Provider. snw 14:42 Admitted to Tele accompanied by tech, family with patient, via stretcher, room 417, jl7 with chart, Report called to RAHUL Wall 14:42 Condition: stable 14:42 Discharge instructions given to patient, family, Instructed on the need for admit, Demonstrated understanding of instructions. 14:45 Patient left the ED. jl7 Signatures: Dispatcher [employer] EDMS Sonja Tavarez, APPELLATE CONFEREE-C APPELLATE CONFEREE-Csnw Claus, Isac Andreaha mh1 Tiffanie Posey Audri, RN RN aa5 Alicia Zuñiga5 Jaida Dailey RN RN jl7 Moraima Massey 3 Corrections: (The following items were deleted from the chart) 11:25 11:22 Presenting complaint: Patient states: generalized weakness since last night. Pt aa5 states "I fell three times last night because I was so weak". Pt reports last dialysis was Tuesday. aa5 14:36 12:08 BP 133 / 70; Pulse 74bpm; Resp 16bpm; Spontaneous; Pulse Ox 97% RA; jl7 jl7
--- NOTE | 2018-10-18 13:07 | EDPHYS ---
Physician Documentation [facility] Name: Jonathan Agudelo Age: 77 yrs Sex: Male : 1940 Arrival Date: 10/18/2018 Time: 11:14 Bed 13 Private MD: Vivian Moody H ED Physician Nolan De HPI: 10/18 12:28 This 77 yrs old Male presents to ER via Wheelchair with complaints of General snw Weakness. 12:28 Pt states he feels generally weak, fell x 3 in the past three days secondary to legs snw being weak. Pt has skipped dialysis x 2 treatments for weakness/malaise. Encouraged pt to f/u for dialysis lennie. Onset: The symptoms/episode began/occurred gradually, and became persistent. Severity of symptoms: At their worst the symptoms were moderate. The patient has experienced similar episodes in the past. The patient has not recently seen a physician. Historical: - Allergies: 11:23 No Known Allergies; aa5 - PMHx: 11:23 CVA; Diabetes - NIDDM; ESRD; HTN; Prostate Cancer; Vision problem; Dialysis M-W-F; aa5 - PSHx: 11:23 Prostate removed; Dialysis catheter to chest; aa5 - Immunization history:: Pneumococcal vaccine is up to date, Flu vaccine is up to date. - Social history:: Smoking status: Patient/guardian denies using tobacco. - Ebola Screening: : No symptoms or risks identified at this time. ROS: 12:25 Eyes: Negative for injury, pain, redness, and discharge, ENT: Negative for injury, snw pain, and discharge, Neck: Negative for injury, pain, and swelling, Cardiovascular: Negative for chest pain, palpitations, and edema, Respiratory: Negative for shortness of breath, cough, wheezing, and pleuritic chest pain, Abdomen/GI: Negative for abdominal pain, nausea, vomiting, diarrhea, and constipation, Back: Negative for injury and pain, : Negative for injury, bleeding, discharge, and swelling, MS/Extremity: Negative for injury and deformity, Skin: Negative for injury, rash, and discoloration. 12:25 Constitutional: Positive for malaise. 12:25 Neuro: Positive for weakness, generalized weakness. Pt skipped dialysis Tuesday because he felt weak. Today his dialysis appointment was at 11:00. Pt continued to c/o weakness/malaise so skipped dialysis again and came to ED.. Exam: 12:25 Constitutional: This is a well developed, well nourished patient who is awake, alert, snw and in no acute distress. Head/Face: Normocephalic, atraumatic. Eyes: Pupils equal round and reactive to light, extra-ocular motions intact. Lids and lashes normal. Conjunctiva and sclera are non-icteric and not injected. Cornea within normal limits. Periorbital areas with no swelling, redness, or edema. ENT: Nares patent. No nasal discharge, no septal abnormalities noted. Tympanic membranes are normal and external auditory canals are clear. Oropharynx with no redness, swelling, or masses, exudates, or evidence of obstruction, uvula midline. Mucous membranes moist. Neck: Trachea midline, no thyromegaly or masses palpated, and no cervical lymphadenopathy. Supple, full range of motion without nuchal rigidity, or vertebral point tenderness. No Meningismus. Chest/axilla: Normal chest wall appearance and motion. Nontender with no deformity. No lesions are appreciated. Cardiovascular: Regular rate and rhythm with a normal S1 and S2. No gallops, murmurs, or rubs. Normal PMI, no JVD. No pulse deficits. Respiratory: Lungs have equal breath sounds bilaterally, clear to auscultation and percussion. No rales, rhonchi or wheezes noted. No increased work of breathing, no retractions or nasal flaring. Abdomen/GI: Soft, non-tender, with normal bowel sounds. No distension or tympany. No guarding or rebound. No evidence of tenderness throughout. Back: No spinal tenderness. No costovertebral tenderness. Full range of motion. Skin: Warm, dry with normal turgor. Normal color with no rashes, no lesions, and no evidence of cellulitis. MS/ Extremity: Pulses equal, no cyanosis. Neurovascular intact. Full, normal range of motion. Neuro: Awake and alert, GCS 15, oriented to person, place, time, and situation. Cranial nerves II-XII grossly intact. Motor strength 5/5 in all extremities. Sensory grossly intact. Cerebellar exam normal. Normal gait. Vital Signs: 11:24 BP 121 / 62; Pulse 74; Resp 16 S; Temp 98.6(TE); Pulse Ox 93% on R/A; Weight 56.7 kg aa5 (R); Pain 0/10; 11:33 Temp 98.8; jl7 12:08 BP 133 / 70; Pulse 74; Resp 16 S; Pulse Ox 97% on 2 lpm NC; jl7 12:30 BP 143 / 76; Pulse 72; Resp 18 S; Pulse Ox 98% on 2 lpm NC; jl7 13:30 BP 140 / 74; Pulse 72; Resp 16; Pulse Ox 98% on 2 lpm NC; jl7 13:30 BP 144 / 71; Pulse 72; Resp 16 S; Pulse Ox 98% on 2 lpm NC; jl7 MDM: 11:25 Patient medically screened. snw 13:03 Data reviewed: vital signs, nurses notes. Data interpreted: Pulse oximetry: on room air snw is 89 %. Interpretation: hypoxia. Counseling: I had a detailed discussion with the patient and/or guardian regarding: the historical points, exam findings, and any diagnostic results supporting the discharge/admit diagnosis, lab results, radiology results, the need for further work-up and treatment in the hospital. Physician consultation: Rona Moreno MD was called at 13:04, was contacted at 13:04, regarding admission, to the telemetry unit. 10/18 11:26 Order name: CBC with Diff; Complete Time: 11:55 snw 10/18 11:26 Order name: Chem 7; Complete Time: 12:15 snw 10/18 11:26 Order name: Blood Culture* snw 10/18 11:26 Order name: Chest Pa And Lat (2 Views) XRAY; Complete Time: 12:58 snw 10/18 13:07 Order name: Add On-Lab snw 10/18 13:18 Order name: Procalcitonin; Complete Time: 14:14 EDMS 10/18 11:26 Order name: EKG; Complete Time: 11:27 snw 10/18 11:26 Order name: EKG - Nurse/Tech; Complete Time: 11:38 snw 10/18 11:27 Order name: FSBS; Complete Time: 11:38 snw 10/18 12:30 Order name: CT Head C Spine; Complete Time: 13:06 snw Administered Medications: 13:19 Drug: Cefepime 1 grams Route: IVPB; Rate: 200 ml/hr; Infused Over: 30 mins; Site: right jl7 antecubital; 13:50 Follow up: Response: No adverse reaction; IV Status: Completed infusion jl7 Point of Care Testing: Blood Glucose: 11:33 Blood Glucose: 274 mg/dL; jl7 Ranges: Critical Glucose Levels:Adult <50 mg/dl or >400 mg/dl <40 mg/dl or >180 mg/dl Disposition: 16:38 Co-signature as Attending Physician, Nolan De MD. rn Disposition: 10/18/18 13:06 Hospitalization ordered by Rona Moreno for Inpatient Admission. Preliminary diagnosis are Pneumonia, unspecified organism, End stage renal disease, Weakness. - Bed requested for Telemetry/MedSurg (Inpatient). - Status is Inpatient Admission. jl7 - Condition is Stable. - Problem is new. - Symptoms are unchanged. UTI on Admission? No Signatures: Dispatcher [employer] EDMS Eden Schneider Shelly, NATIONAL SECRETARY-C NATIONAL SECRETARY-Csnw Nolan De MD MD rn Calderon, Melina RN RN aa5 Jaida Dailey RN RN jl7 Corrections: (The following items were deleted from the chart) 14:30 13:06 Hospitalization Ordered by Rona Moreno MD for Inpatient Admission. Preliminary bd diagnosis is Pneumonia, unspecified organism; End stage renal disease; Weakness. Bed requested for Telemetry/MedSurg (Inpatient). Status is Inpatient Admission. Condition is Stable. Problem is new. Symptoms are unchanged. UTI on Admission? No. snw 14:45 14:30 10/18/2018 13:06 Hospitalization Ordered by Rona Moreno MD for Inpatient jl7 Admission. Preliminary diagnosis is Pneumonia, unspecified organism; End stage renal disease; Weakness. Bed requested for Telemetry/MedSurg (Inpatient). Status is Inpatient Admission. Condition is Stable. Problem is new. Symptoms are unchanged. UTI on Admission? No. bd
[2018-10-18] MEDS ORDERED: CEFEPIME 1 GM/100 ML BAG IV ONE (13:15)
[2018-10-18] MEDS ORDERED: ONDANSETRON 4 MG/2 ML VIAL IV PRN (14:55)
[2018-10-18] MEDS ORDERED: VANCOMYCIN 1 GM in NA CHLORIDE 0.9% 250 ML IV SCH (15:00)
[2018-10-18] MEDS ORDERED: GLUCAGON 1 MG/VIAL IM PRN (15:16)
[2018-10-18] MEDS ORDERED: D50W 25 GM/50 ML SYRINGE IV PRN (15:16)
[2018-10-18] MEDS ORDERED: NA CHLORIDE 0.9% 1,000 ML IV PRN (15:28)
[2018-10-18] MEDS ORDERED: ALBUMIN HUMAN 25% 50 ML IV SCH (16:00)
[2018-10-18] MEDS: INSULIN -REGULAR HUMAN 50 UNIT/0.5 ML ML SQ SCH ×2 (16:30→21:00)
--- NOTE | 2018-10-18 17:10 | EKG ---
Test Date: 2018-10-18 Test Time: 11:36:28 Cad Manager: AG/S MEASUREMENT RESULTS: Intervals: Rate: 73 MN: 168 QRSD: 156 QT: 472 QTc: 519 [place]: P: 67 MN: 168 QRS: -73 T: 99 INTERPRETIVE STATEMENTS: Normal sinus rhythm Left axis deviation Left bundle branch block Abnormal ECG Compared to ECG 05/26/2018 19:12:19 No significant changes Electronically Signed On 10-18-18 17:09:47 DIRECTOR SOFTWARE DEVELOPMENT by Clarence Renteria
[2018-10-18] MEDS: ENOXAPARIN 30 MG/0.3 ML SQ SCH (20:36)
[2018-10-18] MEDS: ACETAMINOPHEN 500 MG TAB PO PRN (20:41)
[2018-10-19 02:27] VITALS: BMI 23.7
--- NOTE | 2018-10-19 04:34 | HP ---
Date of Admission: 10/18/2018 Consultants: Dr. Ashraf with Nephrology. Code Status: Full. History Of Present Illness: The patient is a 77-year-old male with past medical history of diabetes mellitus type 2, end-stage renal disease on hemodialysis, history of CVA, who has missed his last 2 h emodialysis sessions on Tuesday and Tuesday, has had some generalized weakness resulting in some falls, who comes in with shortness of breath. The patient's symptoms are constant, moderate, and progressi vely worsening. Upon arrival to the ER, his vital signs were stable. He was somewhat hypoxic and im proved to 97% on 2 L. He was afebrile and did not appear to be septic. His workup revealed white co unt of 10.1. His creatinine was 6.16. Sodium was low at 131. Procalcitonin, however, was elevated at 0.52. Chest x-ray showed right-sided multifocal pneumonia pattern. CT scan of the head and cervi delilah spine were negative. The patient was referred for admission. He was started on cefepime for pne umonia. When seen in the ER, he was awake, alert, oriented x3, in some mild distress. Past Medical History: End-stage renal disease, on hemodialysis; diabetes mellitus type 2, non-insuli n requiring; hypertension; history of aortic stenosis; atrial fibrillation; diabetic neuropathy. Surgical History: Tesio catheter placement, history of prostate surgery. Allergies: NO KNOWN DRUG ALLERGIES. Medications: List reviewed. Social History: The patient denies any current tobacco use, alcohol use, or illicit drug use. He estrada s good social support. Family History: Father had lung disease. Review of Systems: Limited as the patient is [place]-speaking only. No telemetry monitor service is available in the hemodialy sis unit. General: The patient does report some weakness and falls. No fevers. Respiratory: Some shortness of breath. CV: No chest pain. Physical Examination: Vital Signs: Blood pressure 121/62, pulse 74, respirations 16, temperature 98.6, O2 93% on room air. General: Awake, alert, oriented x3. Some mild distress. Elderly male. HEENT: Normocephalic, atraumatic. PERRLA. EOMI. Dry mucous membranes. Oropharynx is clear. Poor dentition. Conjunctivae anicteric. Neck: Supple. Trachea midline. CV: S1 and S2. Peripheral pulses present. A 3/6 holosystolic murmur is present. Respiratory: Decreased breath sounds. Crackles heard. No use of accessory muscles. No stridor. Gastrointestinal: Abdomen is soft, nontender, nondistended. Positive bowel sounds. No guarding or rigidity. Extremities: No clubbing, cyanosis, 2+ edema bilateral lower extremities. No calf tenderness. Neuro: Cranial nerves 2-12 intact grossly. No focal neurological deficit. Speech is normal. Skin: No rashes. Normal skin turgor. Laboratory Data: Sodium 131, potassium 3.6, chloride 86, CO2 33, BUN 82, creatinine 6.16, glucose 29 3, calcium 8.2. Procalcitonin 0.52. WBC 10.9, H and H 12.7 and 37.8, platelets 245, neutrophils 83% . Assessment And Plan: A 77-year-old male with: 1.Multifocal pneumonia, right. We will start on broad-spectrum IV antibiotics. The patient has ris k factors for gram-negative pneumonia as well as methicillin-resistant Staphylococcus aureus due to h emodialysis and recent hospitalization. We will initiate vancomycin and cefepime. We will obtain bl ood cultures and sputum cultures. We will check influenza screen. 2.Generalized weakness. 3.End-stage renal disease, on hemodialysis. The patient has missed his last [address] Wong who will arrange for dialysis at the hospital. 4.Diabetes mellitus type 2, [id number] with chronic kidney disease, on dialysis. We will start on sliding scale insulin and monitor blood glucose levels. 5.History of cerebrovascular accident without residual deficits. 6.Essential hypertension, stable. We will resume home medications as appropriate. 7.History of aortic stenosis. 8.History of paroxysmal atrial fibrillation. 9.Diabetic neuropathy. 10.Gastrointestinal/deep venous thrombosis prophylaxis addressed. Lovenox renally dosed. Plan: Admit the patient to Med-Surg, place as inpatient. Length of stay, greater than 2 midnights. ROSITA Voice ID: [id number]
[2018-10-19 04:50] LABS: Absolute Lymphocytes (CBC) 0.7 K/uL (0.7-4.9); Absolute Monocytes 0.9 K/uL (0.1-1.3); Absolute Neutrophil 6.3 K/uL (1.8-8.0); Basophils % 0.7 % (0-1.3); Eosinophils % 2.1 % (0-4.4); Hematocrit 37.3 % (39.6-49.0); Lymphocytes % 8.5 % (15.3-44.8); MPV 9.8 fL (7.6-11.3); Monocytes % 10.9 % (3.3-12.3); RBC Red Blood Cell Count 4.48 M/uL (4.33-5.43)
[2018-10-19 05:00] LABS: Albumin 2.9 g/dL (3.4-5.0); Bilirubin Total 0.5 mg/dL (0.2-1.0); Potassium 3.7 mmol/L (3.5-5.1); Protein, Total 6.5 g/dL (6.4-8.2)
[2018-10-19] MEDS: INSULIN -REGULAR HUMAN 50 UNIT/0.5 ML ML SQ SCH ×6 (07:30→20:28)
--- NOTE | 2018-10-19 08:17 | RAD REPORT ---
EXAM DESCRIPTION: RAD - Chest Pa And Lat (2 Views) - 10/19/2018 8:09 am CLINICAL HISTORY: Pneumonia COMPARISON: October 18 TECHNIQUE: PA and lateral views of the chest were obtained. FINDINGS: The lungs are normal volume. The right upper lobe perihilar pneumonia has shown improvemen t since the prior imaging. Right infrahilar infiltrate also improved. No new or progressive finding. Dialysis catheter remains in place. Heart size is normal and central vasculature is within normal l imits. No pleural effusion or pneumothorax seen. No acute bony finding noted. No aortic abnormalit y. IMPRESSION: Improvement in the right-sided pneumonia since prior day imaging.
[2018-10-19] MEDS ORDERED: CEFEPIME 1 GM/VIAL IV SCH (09:00)
[2018-10-19] MEDS: CEFEPIME 0.5 GM in NA CHLORIDE 0.9% 50 ML IV SCH (10:22)
[2018-10-19] MEDS: ENOXAPARIN 30 MG/0.3 ML SQ SCH (10:23)
--- NOTE | 2018-10-19 11:47 | RAD REPORT ---
EXAM DESCRIPTION: RAD - Lumbar Spine 3 Views - 10/19/2018 11:28 am CLINICAL HISTORY: Back pain, recent fall COMPARISON: CT study May 2018 FINDINGS: A three-view lumbar spine examination was performed. Slight wedging of the L2 body matches the May comparison study. L1- 2 disc space is narrowed slightly with endplate spurring. Lumbar bodies are otherwise normal in height. No clear change in vertebral body height since the May 2018 CT study. No lytic, sclerotic or expansile process. Mid and lower lumbar facet joint degenerativ e changes are present. No other significant disc space narrowing. Endplate spurs are seen at multiple levels. No pars defects identified. IMPRESSION: Lumbar spine degenerative changes are present as detailed. No acute compression fracture seen.
[2018-10-19] MEDS: CALCITROL 0.25 MCG CAP PO SCH (12:00)
[2018-10-19] MEDS: FUROSEMIDE 40 MG TABLET PO SCH (16:26)
[2018-10-19] MEDS: GLIMEPIRIDE 2 MG TABLET PO SCH (16:27)
--- NOTE | 2018-10-19 18:40 | PN ---
Date of Progress Note: 10/19/2018 Subjective: The patient is seen and examined. Chart reviewed and case discussed with RN and Dr. Antonella parsons. The patient refused dialysis today. Does report some muscle spasms and recent falls at home. Overall feeling better. Shortness of breath has improved. Medications: List reviewed. Physical Examination: Vital Signs: Temperature 98.3, heart rate 87, blood pressure 160/75, respirations 16, O2 98% on room air. GENERAL: Awake, alert, oriented x3, not in any acute distress. Elderly male. CV: S1, S2. Peripheral pulses present. Regular rate and rhythm. Respiratory: Moving air well bilaterally. No wheezing. Gastrointestinal: Abdomen is soft, nontender, nondistended. Positive bowel sounds. Extremities: No clubbing, cyanosis, or edema. Neurologic: Nonfocal. Laboratory Data: Sodium 136, potassium 3.7, chloride 97, CO2 31, BUN 44, creatinine 4.1, glucose 274 , calcium 7.9. Accu-Chek; glucose level was 518. Apparently, the patient did have pancakes with reg ular syrup for breakfast. WBC 8.1, H and H 12.4 and 37.3, platelets 215, neutrophils 77%. Chest x-r ay shows improvement in right-sided pneumonia since prior day imaging, personally reviewed. Lumbar s pine x-ray shows degenerative changes. No acute compression fracture. Assessment And Plan: A 77-year-old male with: 1.Multifocal pneumonia on the right. Chest x-ray shows improvement. The patient's symptoms have al so improved. We will continue broad-spectrum IV antibiotics. The patient's blood culture showing pr eliminary gram-positive cocci, likely methicillin-resistant staphylococcus aureus. The patient does have possibility of catheter line infection. We will consult Surgery to have Tesio catheter removed, culture the tip and have Tesio catheter replaced. 2.Generalized weakness, improving. We will continue with PT. The patient did report some muscle sp asms, likely due to missed dialysis, significantly improved. 3.End-stage renal disease, on hemodialysis. The patient refused dialysis today. Will be dialyzed a gain tomorrow. Appreciate Nephrology input. 4.Diabetes mellitus type 2, duf-kargqsz-azqwfcgzh with chronic kidney disease on dialysis, uncontrol led. We will check hemoglobin A1c. The patient today ate pancake with full sugar syrup. Glucose in the 500s. We will add long-acting insulin and adjust sliding scale. 5.History of cerebrovascular accident without residual deficits. 6.Essential hypertension, stable. 7.History of aortic stenosis. 8.Paroxysmal atrial fibrillation. 9.Diabetic neuropathy. 10.Deep venous thrombosis prophylaxis with Lovenox, renally dosed. Likely discharge in next 48-72 h ours depending on culture results. He may need long-term IV antibiotics for now. We will need surge ry consultation for removal and replacement of Tesio catheter. We will obtain ID consultation. /SCOOBY Voice ID: [id number] Report ID: [id number]
[2018-10-19] MEDS: GABAPENTIN 100 MG CAP PO SCH (20:27)
[2018-10-19] MEDS: AMLODIPINE 10 MG TAB PO SCH (20:27)
[2018-10-19] MEDS: INSULIN GLARGINE 100 UNITS/ML SQ SCH (20:31)
[2018-10-19] MEDS: ACETAMINOPHEN 500 MG TAB PO PRN (20:34)
--- NOTE | 2018-10-19 22:33 | P.CNS ---
Date of Consult: 10/19/18 Reason for Consult: ESRD to resume HD and volume managment Chief Complaint: weakness History of Present Illness: A 77 Y/O man with PMHx of ESRD on HD MWF at via Rt perm cath , DM with neuropathy, and HTN Pt presented for weakness and fall Pt last HD was on Tuesday couldn't show for HD on Tuesday due to weakness, pt lost balance and fell on his back, no LOC, chest pain, palpitation, chills , nausea or vomiting Head Ct :-ve , VS stable Bcx ;Gve bacteremia Allergies No Known Allergies Allergy (Verified 10/19/18 02:27) Home Medications: Amlodipine [Norvasc] 10 mg PO BID 10/19/18 Calcitrol [Rocaltrol] 0.25 mcg PO Q48H 10/19/18 Furosemide 80 mg PO BID 10/19/18 Gabapentin [Neurontin] 100 mg PO BID 10/19/18 Glimepiride 4 mg PO BID 10/19/18 Montelukast [Singulair] 10 mg PO DAILY 10/19/18 Ropinirole HCl 2 mg PO DAILY 10/19/18 - Past Medical/Surgical History Diabetic: Yes -: Diabetes mellitus type 2 -: Hypertension -: History of aortic stenosis -: Atrial fibrillation -: End-stage renal disease -: Diabetic neuropathy -: History prostate surgery Psychosocial/ Personal History: Not able to be obtained. Surgeon reports patient has . - Family History Father Medical History: Lung disease - Social History Alcohol use: No CD- Drugs: No Caffeine use: No Place of Residence: Home Physical Examination Temp Pulse Resp BP Pulse Ox 98.7 F 94 H 16 158/71 H 98 10/19/18 16:00 10/19/18 20:27 10/19/18 16:00 10/19/18 20:27 10/19/18 16:00 General: In no apparent distress, Oriented x3 HEENT: Atraumatic Neck: Supple, Without JVD or thyroid abnormality Respiratory: Clear to auscultation bilaterally, Normal air movement Cardiovascular: No edema, Normal pulses, Regular rate/rhythm, Normal S1 S2 Gastrointestinal: Normal bowel sounds, Soft and benign - Problems (1) Bacteremia Current Visit: Yes Status: Acute (2) ESRD (end stage renal disease) Onset Date: 10/19/18 Current Visit: Yes Status: Chronic (3) Diabetes mellitus Onset Date: 10/19/18 Current Visit: Yes Status: Chronic Qualifiers: Diabetes mellitus type: type 2 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 use status Diabetes mellitus complication status : with kidney complications Diabetes mellitus complication detail: with chronic kidney disease Chronic kidney disease stage: stage 4 (severe) Qualified Code(s): E11.22 - Type 2 diabetes mellitus with diabetic chronic kidney disease; N18.4 - Chronic kidney disease, stage 4 (severe) Conclusions/Impression: ESRD refused HD today HD tomorrow then MWF renal dose meds G+ve bacteremia HD catheter need to be removed temp cath placement tomorrow Cont vanco and zosyn repeat blood cultures after new catheter placement if Bcx Stap aureus or Sterp then need to do echo permenant cath placement once cultures -ve anemia no need for bony HTn resume home meds DM as per primary MBD cont binders
[2018-10-20 05:40] LABS: Absolute Lymphocytes (CBC) 0.9 K/uL (0.7-4.9); Absolute Monocytes 1.3 K/uL (0.1-1.3); Absolute Neutrophil 7.6 K/uL (1.8-8.0); Basophils % 0.7 % (0-1.3); Hematocrit 37.8 % (39.6-49.0); Lymphocytes % 9.4 % (15.3-44.8); MPV 9.7 fL (7.6-11.3); Monocytes % 13.3 % (3.3-12.3); RBC Red Blood Cell Count 4.58 M/uL (4.33-5.43)
[2018-10-20 05:57] LABS: Bilirubin Total 0.6 mg/dL (0.2-1.0); Potassium 3.1 mmol/L (3.5-5.1); Protein, Total 6.9 g/dL (6.4-8.2)
[2018-10-20] MEDS: INSULIN -REGULAR HUMAN 50 UNIT/0.5 ML ML SQ SCH ×4 (07:30→20:15)
[2018-10-20] MEDS: GLIMEPIRIDE 2 MG TABLET PO SCH ×2 (08:00→17:00)
[2018-10-20] MEDS ORDERED: MONTELUKAST 10 MG TAB PO SCH (09:00)
[2018-10-20] MEDS ORDERED: ROPINIROLE HCL 1 MG TAB PO SCH (09:00)
[2018-10-20] MEDS: GABAPENTIN 100 MG CAP PO SCH ×2 (10:13→20:14)
[2018-10-20] MEDS: AMLODIPINE 10 MG TAB PO SCH ×2 (10:14→20:14)
[2018-10-20] MEDS: FUROSEMIDE 40 MG TABLET PO SCH ×2 (10:14→17:00)
[2018-10-20] MEDS: CALCITROL 0.25 MCG CAP PO SCH (10:14)
[2018-10-20] MEDS: ENOXAPARIN 30 MG/0.3 ML SQ SCH (10:15)
[2018-10-20] MEDS: CEFEPIME 0.5 GM in NA CHLORIDE 0.9% 50 ML IV SCH (10:15)
[2018-10-20] MEDS ORDERED: NA CHLORIDE 0.9% 0 ML ONE (12:49)
[2018-10-20] MEDS ORDERED: NA CHLORIDE 0.9% 500 ML ONE (12:50)
[2018-10-20] MEDS ORDERED: MIDAZOLAM HCL 2 MG/2 ML INJ ONE (14:09)
[2018-10-20] MEDS ORDERED: PROPOFOL 200 MG/20 ML VIAL IV ONE (14:09)
[2018-10-20] MEDS ORDERED: LIDOCAINE 2% MPF 5 ML VIAL ONE (14:09)
[2018-10-20] MEDS: BUPIVACAINE 0.5% PF 10 ML VIAL ONE ×2 (14:21→14:29)
--- NOTE | 2018-10-20 14:38 | P.BOP ---
Preoperative diagnosis: ESRD Postoperative diagnosis: same Primary procedure: Remove of tunneled hemodyalisis catheter Estimated blood loss: <3cc Specimen: intact catheter, tip sent for culture Findings: as above Anesthesia: General Complications: None Transferred to: Recovery Room Condition: Good
[2018-10-20 16:29] VITALS: O2SAT 95
--- NOTE | 2018-10-20 16:35 | CON ---
History Of Present Illness: The patient is a 77-year-old male coming in with diabetes mellitus, end- stage renal disease, on hemodialysis since June. History of stroke and missed a couple of hemodia lysis session on Tuesday and Tuesday. The patient was consulted for pneumonia and possible light infec tion. He will have a replacement of his line by surgical team. Denies any headache, nausea, vomitin g, chest pain, abdominal pain, constipation, or diarrhea. Past Medical History: End-stage renal disease; diabetes mellitus, non-insulin; hypertension; aortic stenosis; atrial fibrillation; diabetic neuropathy. Surgical History: Tesio catheter placement, prostate surgery. Social History: Nonsmoker, nondrinker. Family History: Noncontributory. Medication: Include Tylenol, albumin, Norvasc, calcitriol, cefepime, Lovenox, Lasix, Neurontin, Amar yl, glucagon, heparin, Lantus, Singulair, Zofran, vancomycin. Allergies: NO KNOWN DRUG ALLERGIES. Review of Systems: Ten-point review was performed. Physical Examination: General: This is a 77-year-old male, lying in bed, not in any acute cardiopulmonary distress. Vital Signs: Temperature 98.5 down from 99.5, pulse 90, respiration 18, blood pressure 155/87. HEENT: Unremarkable. Neck: Supple. Lungs: Basal crackles, right more than left. Heart: S1, S2. Regular. Abdomen: Soft, nontender. Bowel sounds present. Extremities: No edema. Laboratory Data: Shows WBC 10, hemoglobin 12.5, platelets are 231. Chemistry shows sodium 136, pota ssium 3.7, chloride 97, bicarb 31, BUN 44, creatinine 4.1, glucose is 77. Microbiology Data: Cultures are negative for 24 hours. Diagnostic Data: Chest x-ray shows the patient has right-sided multifocal pneumonia. Assessment And Plan: A 77-year-old male with possible lyme sepsis and right-sided pneumonitis. I ag ree with the IV antibiotic cefepime and vancomycin, and replacement of catheter. Continue antibiotic and supportive care for at least 2 weeks. We will follow the patient as needed. NF/MODL Voice ID: [id number] Report ID: [id number]
[2018-10-20] MEDS: INSULIN GLARGINE 100 UNITS/ML SQ SCH (20:14)
[2018-10-20 20:16] VITALS: BP 154/81
[2018-10-20 20:41] VITALS: TEMP 98.3
--- NOTE | 2018-10-20 20:59 | CON ---
Date of Consultation: 10/20/2018 Diagnoses: End-stage renal disease. Bacteremia, possible infected catheter. History Of Present Illness: This is a case of a 77-year-old patient whom I was contacted for since t hey believe the patient has bacteremia and they will like the hemodialysis tunneled catheter removed. They would also like placement of the other catheter several days from now since he will require di alysis once again, but they want a window in between to make sure they are clearing the blood. He do es not remember anything that happened there. The area of insertion looks okay. He denies any dysur ia, hematuria, hematochezia, or melena. Review of Systems: Ten points otherwise remarkable. Physical Examination: General: The patient is awake and alert. HEENT: Pupils are equal and reactive, anicteric. Neck: Supple. Chest: Clear. Chest area shows a hemodialysis catheter in that area with no purulent discharge comi ng from the incision. No erythema neither. Abdomen: Soft and depressible. No guarding or rebound. Allergies: NO KNOWN ALLERGIES. Past Surgical History: Tesio placement several months ago by a local surgeon here in [place]. Medical Problems: As above, end-stage renal disease, on hemodialysis, diabetes, hypertension, atrial fibrillation, diabetic neuropathy, aortic stenosis. Assessment: A 77-year-old patient, with fever. They believe the catheter may be involved, so they w ant the catheter out, but they have to put a catheter back eventually because he is going to need to receive dialysis. In the last few times apparently he has not been that compliant to having his dial ysis. He was explained the importance of it. We are going to remove the catheter, with benefits, al ternatives, and risks including, but not limited to infection, bleeding, damage to adjacent structure s, anesthesia complication, PE, non-nonhealing wound, [place], and even . He also understands this m ay not relieve his symptoms. He might need more than one surgical intervention. He also was explain ed the placement of another catheter in several days from now, which has the same risks what remains right now, but it will also include pneumothorax, DVTs, pericarditis. HM/MODL Voice ID: [id number] Report ID: [id number]
--- NOTE | 2018-10-20 21:23 | PN ---
Date of Progress Note: 10/20/2018 Subjective: The patient is seen and examined. Chart reviewed and case discussed with RN, Infectious Disease, Dr. Bernal and Dr. Zuñiga. The patient had a dialysis catheter removed today to assess t he patient of line associated infection. The patient continues to have fever 100.8, otherwise doing well. Did go for hemodialysis today. Medications: List reviewed. Physical Examination: Vital Signs: Temperature 100.8, heart rate 83, blood pressure 135/70, respirations 18, O2 99% on alley m air. General: Awake, alert, oriented x3. Elderly male. CV: S1, S2. Regular rate and rhythm. Peripheral pulses are present. Respiratory: Clear to auscultation bilaterally. No wheezing or stridor. Gastrointestinal: Abdomen is soft, nontender, nondistended. Positive bowel sounds. Extremities: No clubbing, cyanosis, or edema. Neurologic: Nonfocal. Laboratory Data: Sodium 138, potassium 3.1, chloride 99, CO2 26, BUN 54, creatinine 4.86, glucose 82 , calcium 8.3. WBC 10, H and H 12.5 and 37.8, platelets 14.9. Assessment And Plan: A 77-year-old male with: 1.Multifocal pneumonia on the right, improving. Continue with IV antibiotics. Blood culture prelim inary growing gram-positive cocci, possibly methicillin-resistant Staphylococcus aureus, does have po ssibility of catheter line infection. Surgery has removed Tesio catheter. However, he did mention t hat placement by Dr. Kapoor in June was very challenging and the patient will likely need venogram and interventional radiologist to replace the catheter. Recommends transfer to higher level of care. 2.Generalized weakness, improving. Continue PT. 3.End-stage renal disease, on hemodialysis. Continue dialysis as scheduled. Appreciate Nephrology input. 4.Diabetes mellitus, type 2, [id number]-afbngdheg, with chronic kidney disease, on dialysis, uncont rolled. Adjust insulin level. Continue sliding scale and monitor Accu-Cheks. 5.History of cerebrovascular accident without residual deficits. 6.Essential hypertension, stable. 7.History of aortic stenosis, stable. 8.Paroxysmal atrial fibrillation, currently in sinus rhythm, not on chronic anticoagulation at home. 9.Diabetic neuropathy. 10.Deep venous thrombosis prophylaxis, with Lovenox renally dosed. Plan: Follow up on cultures. Catheter tip cultures also been obtained. We will need to initiate tr travisfer for higher level of care. The patient will need a venogram and interventional radiologist for placement of dialysis catheter. /SCOOBY Voice ID: [id number] Report ID: [id number]
--- NOTE | 2018-10-20 23:57 | P.PN ---
Subjective Date of Service: 10/20/18 Chief Complaint: weakness Subjective: No new changes Seen and examined before discharge Afebrile HD today plan for cath remval and placement of temp cath today Physical Examination - Vital Signs Temperature: 98.3 F Blood Pressure: 154/81 Pulse: 83 Respirations: 18 Pulse Ox (%): 100 - Physical Exam General: In no apparent distress, Oriented x3 HEENT: Atraumatic Neck: Supple, Without JVD or thyroid abnormality Respiratory: Clear to auscultation bilaterally, Normal air movement Cardiovascular: No edema, Regular rate/rhythm, Normal S1 S2 Gastrointestinal: Normal bowel sounds Assessment And Plan - Current Problems (Diagnosis) (1) Bacteremia Status: Acute (2) ESRD (end stage renal disease) Onset Date: 10/19/18 Status: Chronic (3) Diabetes mellitus Onset Date: 10/19/18 Status: Chronic Qualifiers: Diabetes mellitus type: type 2 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 insulin use status Diabetes mellitus complication status : with kidney complications Diabetes mellitus complication detail: with chronic kidney disease Chronic kidney disease stage: stage 4 (severe) Qualified Code(s): E11.22 - Type 2 diabetes mellitus with diabetic chronic kidney disease; N18.4 - Chronic kidney disease, stage 4 (severe) - Plan ESRD HD today then MWF renal dose meds G+ve bacteremia HD catheter need to be removed temp cath placement Cont vanco and zosyn repeat blood cultures after new catheter placement if Bcx Stap aureus or Sterp then need to do echo permenant cath placement once cultures -ve anemia no need for bony HTn resume home meds DM as per primary MBD cont binders
--- NOTE | 2018-10-21 02:51 | OP ---
Date of Procedure: 10/20/2018 Surgeon: Higinio Zuñiga MD Preoperative Diagnosis: End-stage renal disease. Postoperative Diagnosis: End-stage renal disease. Procedure: Removal of a tunneled hemodialysis catheter. Specimen: Intact catheter sent for culture. Anesthesia: MAC plus local. Indications: This is a case of a male, who comes to us with fever. He has multiple medical problems , but as the differential diagnosis that include catheter infection since the patient has bacteremia, so they asked me to remove the catheter understanding that they do not feel like they can rule it ou t any other way. This patient apparently has a difficult stick, so it may be difficult to reinsert t hat again, but understanding their differential diagnosis, then we did discuss with the patient and h e agreed with removal with benefits, alternatives, and risks, which include, but are not limited to i nfection, bleeding, damage to adjacent structures, anesthesia complication, nonhealing wound, [place], and even . He also understands this may not relieve the symptoms, he might need more than one surg ical intervention. He understood, signed a consent. Description Of Procedure: The patient was brought to the operating room, placed in supine position. Anesthesia was done without complication. A time-out was call. Right chest was prepped and draped in a sterile fashion. Anesthetic was applied over the cuff area. The cuff was found released from t he subcutaneous tissue. The catheter was then splayed holding proximal and distal catheters. The di stal catheter was then removed. The tip was sent for culture. The proximal was pulled out. Area wa s irrigated. The subcutaneous tissue was closed with 3-0 chromic and skin was left to close by secon tracy intention. Triple antibiotic was applied over the area of the incision and the insertion site. The patient tolerated the procedure well. The patient was sent to recovery in stable condition. BETTY/SCOOBY Voice ID: [id number] Report ID: [id number]
--- NOTE | 2018-10-22 12:34 | DS ---
Date of Discharge: 10/20/2018 Date Of Transfer: 10/20/2018. Admitting Diagnoses: 1.Multifocal pneumonia on the right side. 2.Generalized weakness. 3.End-stage renal disease, on hemodialysis. 4.Diabetes mellitus type 2, [id number], with chronic kidney disease, requiring dialysis. 5.History of cerebrovascular accident without residual deficits. 6.Essential hypertension. 7.History of aortic stenosis. 8.History of paroxysmal atrial fibrillation. 9.Diabetic neuropathy. Discharge Diagnoses: 1.Multifocal pneumonia on the right, improving. 2.Possible bacteremia with gram-positive cocci, possible methicillin-resistant Staphylococcus aureus and catheter line infection, status post removal with subsequent placement to be done with Intervent ional Radiology at [facility]. 3.Generalized weakness. 4.End-stage renal disease, on hemodialysis. 5.Diabetes mellitus type 2, non-insulin requiring. 6.History of cerebrovascular accident without residual deficits. 7.Essential hypertension. 8.History of aortic stenosis. 9.Paroxysmal atrial fibrillation, currently in sinus rhythm, not on chronic anticoagulation. 10.Diabetic neuropathy. Hospital Course: The patient is a 77-year-old male who comes in with generalized weakness, falls, an d shortness of breath. The patient missed his last 2 dialysis sessions due to his medical condition. The patient was found to be hypoxic and with elevated procalcitonin. The patient was dialyzed. CT scan of the head and cervical spine were negative. He was started on broad-spectrum IV antibiotics for pneumonia. His blood cultures initially showed gram-positive cocci in clusters. There was a pos sibility of line infection and recommendations were made to remove the diseased catheter and culture the tip and have a temporary catheter placed while cultures are obtained. Dr. Zuñiga with General Surgery was consulted and the diseased catheter was removed. However, due to his anatomy, it was fel t that it would be difficult to place the catheter back without Interventional Radiology. Therefore, Dr. Zuñiga recommended transfer to higher level of care for Interventional Radiology, possible viral ogram for assistance in placement of the dialysis catheter. Arrangements were made for the patient t o be transferred to [facility]. The patient was accepted by hospitalist, Dr. Mccloud, and the pa colette was transferred in a stable condition. Consultants: Infectious Disease, Dr. Bernal; surgeon, Dr. Zuñiga; Dr. Johnson with Nephrology. Procedures: On 10/20/2018, removal of tunneled hemodialysis catheter. Physical Examination: For physical exam findings, please see progress note dictated on the day of discharge. Time spent transferring the patient to [facility] was 41 minutes. /SCOOBY Voice ID: [id number] Report ID: [id number]
== END 2018-10-20 20:45 | disposition short-term general hospital (02) | DRG 193 ==
LOC: ER 11:10 → ERHOLD 13:46 → 4TH 14:41
PROVIDERS: ADMIT Family Medicine; ATTEND Family Medicine
PROC: 5A1D70Z Performance of Urinary Filtration, Intermittent, Less than 6 Hours Per Day (ICD-10-PCS; 2018-10-18)
PROC: 5A1D70Z Performance of Urinary Filtration, Intermittent, Less than 6 Hours Per Day (ICD-10-PCS; 2018-10-18)
PROC: 05PYX3Z Removal of Infusion Device from Upper Vein, External Approach (ICD-10-PCS; 2018-10-20)
PROC: 0JPTXXZ Removal of Tunneled Vascular Access Device from Trunk Subcutaneous Tissue and Fascia, External Approach (ICD-10-PCS; principal; 2018-10-20 13:45)
DX: J18.9 Pneumonia, unspecified organism (principal); N18.6 End stage renal disease; I12.0 Hypertensive chronic kidney disease with stage 5 chronic kidney disease or end stage renal disease; T82.7XXA Infection and inflammatory reaction due to other cardiac and vascular devices, implants and grafts, initial encounter; R78.81 Bacteremia; E11.22 Type 2 diabetes mellitus with diabetic chronic kidney disease; Z99.2 Dependence on renal dialysis; Z79.84 Long term (current) use of oral hypoglycemic drugs; Z86.73 Personal history of transient ischemic attack (TIA), and cerebral infarction without residual deficits; I48.0 Paroxysmal atrial fibrillation; E11.40 Type 2 diabetes mellitus with diabetic neuropathy, unspecified; Z91.15 Patient's noncompliance with renal dialysis; Z85.46 Personal history of malignant neoplasm of prostate; Z90.79 Acquired absence of other genital organ(s); R53.1 Weakness; Z91.81 History of falling; E11.65 Type 2 diabetes mellitus with hyperglycemia; D64.9 Anemia, unspecified; N25.0 Renal osteodystrophy; I35.0 Nonrheumatic aortic (valve) stenosis; Y92.019 Unspecified place in single-family (private) house as the place of occurrence of the external cause; B95.62 Methicillin resistant Staphylococcus aureus infection as the cause of diseases classified elsewhere
CPT/HCPCS: 36415; 70450; 71046; 72100; 72125; 80048; 80053; 80202; 82947; 82962; 83036; 84145; 85025; 87040; 87070; 87205; 87804; 90935; 93005; 94760; 96365; 97163; 99285; J0692; J1644; J1650; J2250; J2704

== ENCOUNTER 2018-10-28 15:56 | Emergency (ER) | payer OTHER ==
[2018-10-28] MEDS ORDERED: HYDROCODONE/APAP 5/325 MG TAB ONE (17:26)
[2018-10-28] MEDS ORDERED: METHOCARBAMOL 500 MG TAB ONE (17:27)
--- NOTE | 2018-10-28 17:36 | RAD REPORT ---
EXAM DESCRIPTION: CT - Head Brain Wo Cont - 10/28/2018 5:30 pm CLINICAL HISTORY: HEADACHE COMPARISON: Head Brain Wo Cont dated 06/13/2018; Head Brain Wo Cont dated 05/26/2018 TECHNIQUE: All CT scans are performed using dose optimization technique as appropriate and may inclu de automated exposure control or mA/KV adjustment according to patient size. FINDINGS: No intracranial hemorrhage, hydrocephalus or extra-axial fluid collection.No areas of brai n edema or evidence of midline shift. The paranasal sinuses and mastoids are clear. The calvarium is intact. IMPRESSION: No acute intracranial abnormality.
--- NOTE | 2018-10-28 17:52 | EDPHYS ---
Physician Documentation [facility] Name: Jonathan Agudelo Age: 77 yrs Sex: Male : 1940 Arrival Date: 10/28/2018 Time: 16:00 Bed 17 Private MD: Vivian Moody H ED Physician Olivier Mirza HPI: 10/28 16:54 This 77 yrs old Male presents to ER via Ambulatory with complaints of Neck jr8 Problem. 17:14 The patient or guardian complains of decreased range of motion, pain. The symptoms are jr8 located on the posterior neck. Onset: The symptoms/episode began/occurred acutely, 2 day(s) ago. Context: The problem was sustained at home, The neck injury/problem resulted from from unknown cause. Associated signs and symptoms: The patient has no apparent associated signs or symptoms. The pain radiates to the left arm. Modifying factors: The symptoms are alleviated by nothing. the symptoms are aggravated by movement. Severity of symptoms: At their worst the symptoms were moderate, in the emergency department the symptoms are unchanged. The patient has not experienced similar symptoms in the past. The patient has not recently seen a physician. Historical: - Allergies: 16:20 No Known Allergies; hj - Home Meds: 16:20 amlodipine 10 mg tab 1 tab once daily [Active]; Bentyl 20 mg Oral tab 3 times per day [Active]; carvedilol 6.25 mg Oral tab 1 tab 2 times per day [Active]; glimepiride 4 mg Oral tab BID [Active]; Lomotil 2.5-0.025 mg Oral tab 4 times per day for diarrhea [Active]; sodium bicarbonate 325 mg Oral tab 325 mg twice a day [Active]; - PMHx: 16:20 CVA; Diabetes - NIDDM; Dialysis M-W-F; ESRD; HTN; Prostate Cancer; Vision problem; hj - PSHx: 16:20 Prostate removed; Dialysis catheter to chest; hj - Immunization history:: Adult Immunizations up to date. - Social history:: Smoking status: Patient/guardian denies using tobacco, Patient/guardian denies using alcohol. - Ebola Screening: : Patient negative for fever greater than or equal to 101.5 degrees Fahrenheit, and additional compatible Ebola Virus Disease symptoms Patient denies exposure to infectious person Patient denies travel to an Ebola-affected area in the 21 days before illness onset. ROS: 17:14 Eyes: Negative for injury, pain, redness, and discharge, ENT: Negative for injury, jr8 pain, and discharge, Cardiovascular: Negative for chest pain, palpitations, and edema, Respiratory: Negative for shortness of breath, cough, wheezing, and pleuritic chest pain, Abdomen/GI: Negative for abdominal pain, nausea, vomiting, diarrhea, and constipation, Back: Negative for injury and pain, MS/Extremity: Negative for injury and deformity, Skin: Negative for injury, rash, and discoloration, Neuro: Negative for headache, weakness, numbness, tingling, and seizure. 17:14 Neck: Positive for pain with movement, pain at rest, stiffness, tenderness, of the neck. Exam: 17:14 Head/Face: Normocephalic, atraumatic. Eyes: Pupils equal round and reactive to light, jr8 extra-ocular motions intact. Lids and lashes normal. Conjunctiva and sclera are non-icteric and not injected. Cornea within normal limits. Periorbital areas with no swelling, redness, or edema. ENT: Nares patent. No nasal discharge, no septal abnormalities noted. Tympanic membranes are normal and external auditory canals are clear. Oropharynx with no redness, swelling, or masses, exudates, or evidence of obstruction, uvula midline. Mucous membranes moist. Chest/axilla: Normal chest wall appearance and motion. Nontender with no deformity. No lesions are appreciated. Cardiovascular: Regular rate and rhythm with a normal S1 and S2. No gallops, murmurs, or rubs. Normal PMI, no JVD. No pulse deficits. Respiratory: Lungs have equal breath sounds bilaterally, clear to auscultation and percussion. No rales, rhonchi or wheezes noted. No increased work of breathing, no retractions or nasal flaring. Abdomen/GI: Soft, non-tender, with normal bowel sounds. No distension or tympany. No guarding or rebound. No evidence of tenderness throughout. Back: No spinal tenderness. No costovertebral tenderness. Full range of motion. Skin: Warm, dry with normal turgor. Normal color with no rashes, no lesions, and no evidence of cellulitis. MS/ Extremity: Pulses equal, no cyanosis. Neurovascular intact. Full, normal range of motion. 17:14 Neuro: Awake and alert, GCS 15, oriented to person, place, time, and situation. Cranial nerves II-XII grossly intact. Motor strength 5/5 in all extremities except left hand salt washer which was slightly weaker but arm strength was normal. Sensory grossly intact. Cerebellar exam normal. Normal gait. 17:14 Neck: External neck: tenderness, that is moderate, of the left mid cervical area, right mid cervical area, left trapezius, lower cervical area and right trapezius, C-spine: appears grossly normal, no vertebral tenderness, no crepitus, Thyroid: appears normal, Trachea: is midline with no obvious abnormalities, ROM/movement: pain, that is mild, with any movement, limited range of motion, that is mild, with flexion, with extension, Lymph nodes: no appreciated lymphadenopathy. 17:14 Neuro: Vital Signs: 16:21 BP 148 / 74; Pulse 89; Resp 18; Temp 98.1(O); Pulse Ox 96% on R/A; Weight 59.42 kg; hj Height 5 ft. 0 in. (152.40 cm); Pain 10/10; 18:10 BP 138 / 68; Pulse 79; Resp 19; Pulse Ox 95% on R/A; Pain 8/10; em 16:21 Body Mass Index 25.05 (59.42 kg, 152.40 cm) hj MDM: 16:29 Patient medically screened. jr8 17:50 Data reviewed: vital signs, nurses notes, radiologic studies, CT scan, and as a result, jr8 I will discharge patient. Data interpreted: Pulse oximetry: on room air is 96 %. Interpretation: normal. Counseling: I had a detailed discussion with the patient and/or guardian regarding: the historical points, exam findings, and any diagnostic results supporting the discharge/admit diagnosis, radiology results, the need for outpatient follow up, a neurologist, to return to the emergency department if symptoms worsen or persist or if there are any questions or concerns that arise at home. Response to treatment: the patient's symptoms have markedly improved after treatment. 10/28 17:03 Order name: CT Head Brain wo Cont; Complete Time: 17:41 jr Administered Medications: 17:24 Drug: [place] 5 mg-325 mg 1 tabs Route: PO; em 18:15 Follow up: Response: No adverse reaction; Pain is decreased em 17:24 Drug: Robaxin 500 mg Route: PO; em 18:15 Follow up: Response: No adverse reaction; Pain is decreased em Disposition: 18:29 Co-signature as Attending Physician, Olivier Mirza MD. Disposition: 10/28/18 17:51 Discharged to Home. Impression: Muscle spasm. - Condition is Stable. - Discharge Instructions: Muscle Cramps and Spasms. - Prescriptions for Tylenol- Codeine #3 300-30 mg Oral Tablet - take 2 tablets by ORAL route every 6 hours As needed; 20 tablet. - Medication Reconciliation Form, Thank You Letter, Antibiotic Education, Prescription Opioid Use form. - Follow up: Private Physician; When: 2 - 3 days; Reason: Recheck today's complaints, Continuance of care, Re-evaluation by your physician. - Problem is new. - Symptoms have improved. Signatures: Dispatcher [employer] EDMS Lb Tan, [employer] em Cooper Khalil PA PA jr8 Higinio Padgett RN RN hj Starr, Gregory, MD MD Corrections: (The following items were deleted from the chart) 18:21 17:51 10/28/2018 17:51 Discharged to Home. Impression: Muscle spasm. Condition is em Stable. Forms are Medication Reconciliation Form, Thank You Letter, Antibiotic Education, Prescription Opioid Use. Follow up: Private Physician; When: 2 - 3 days; Reason: Recheck today's complaints, Continuance of care, Re-evaluation by your physician. Problem is new. Symptoms have improved. jr8
--- NOTE | 2018-10-28 17:52 | ER ---
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 Transition of care: patient was not received from another setting of care. Acute neurological deficit: none identified. Onset of symptoms was October 28, 2018. Risk Assessment: Do you want to hurt yourself or someone else? Patient reports no desire to harm self or others. Initial Sepsis Screen: Does the patient meet any 2 criteria? No. Patient's initial sepsis screen is negative. Does the patient have a suspected source of infection? No. Patient's initial sepsis screen is negative. Care prior to arrival: None. 16:13 Method Of Arrival: Ambulatory 16:13 Acuity: AAMIR 4 hj Triage Assessment: 16:20 General: Appears in no apparent distress. uncomfortable, Behavior is calm, cooperative, hj appropriate for age. Pain: Complains of pain in neck. Historical: - Allergies: 16:20 No Known Allergies; hj - Home Meds: 16:20 amlodipine 10 mg tab 1 tab once daily [Active]; Bentyl 20 mg Oral tab 3 times per day [Active]; carvedilol 6.25 mg Oral tab 1 tab 2 times per day [Active]; glimepiride 4 mg Oral tab BID [Active]; Lomotil 2.5-0.025 mg Oral tab 4 times per day for diarrhea [Active]; sodium bicarbonate 325 mg Oral tab 325 mg twice a day [Active]; - PMHx: 16:20 CVA; Diabetes - NIDDM; Dialysis M-W-F; ESRD; HTN; Prostate Cancer; Vision problem; hj - PSHx: 16:20 Prostate removed; Dialysis catheter to chest; hj - Immunization history:: Adult Immunizations up to date. - Social history:: Smoking status: Patient/guardian denies using tobacco, Patient/guardian denies using alcohol. - Ebola Screening: : Patient negative for fever greater than or equal to 101.5 degrees Fahrenheit, and additional compatible Ebola Virus Disease symptoms Patient denies exposure to infectious person Patient denies travel to an Ebola-affected area in the 21 days before illness onset. Screenin:21 Abuse screen: Denies threats or abuse. Denies injuries from another. Nutritional hj screening: No deficits noted. Tuberculosis screening: No symptoms or risk factors identified. Fall Risk None identified. Assessment: 16:23 Neuro: Level of Consciousness is awake, alert, obeys commands, Oriented to person, hj place, time, situation, Appropriate for age. 16:50 General: Appears in no apparent distress. uncomfortable, Behavior is calm, cooperative, em Denies fever, pain started after surgery on Tuesday. Pain: Complains of pain in neck Pain currently is 10 out of 10 on a pain scale. Neuro: Level of Consciousness is awake, alert, obeys commands, Oriented to person, place, time, situation, Appropriate for age [employer] Photographer are equal bilaterally Gait is steady, Speech is normal, Facial symmetry appears normal, Intact. Cardiovascular: Capillary refill < 3 seconds Patient's skin is warm and dry. Chest pain is denied Dialysis shunt: in the anterior aspect of right upper chest, with no erythema, with no edema, no bleeding noted. Respiratory: Airway is patent Respiratory effort is even, unlabored, Respiratory pattern is regular, symmetrical. GI: Abdomen is flat. : No signs and/or symptoms were reported regarding the genitourinary system. Derm: Skin is intact, is fragile, Skin is pink, warm \T\ dry. Musculoskeletal: Range of motion: limited in neck. 17:00 Reassessment: Patient appears in no apparent distress at this time. I agree with above iw assessment by Lb Tan LVN. 17:25 Reassessment: Patient appears in no apparent distress at this time. pt wheeled to CT em via wheelchair. 18:10 Reassessment: Patient appears in no apparent distress at this time. Patient and/or em family updated on plan of care and expected duration. Pain level reassessed. Patient is alert, oriented x 3, equal unlabored respirations, skin warm/dry/pink. rates pain 8/10 Patient states feeling better. Vital Signs: 16:21 BP 148 / 74; Pulse 89; Resp 18; Temp 98.1(O); Pulse Ox 96% on R/A; Weight 59.42 kg; hj Height 5 ft. 0 in. (152.40 cm); Pain 10/10; 18:10 BP 138 / 68; Pulse 79; Resp 19; Pulse Ox 95% on R/A; Pain 8/10; em 16:21 Body Mass Index 25.05 (59.42 kg, 152.40 cm) ED Course: 16:00 Patient arrived in ED. mr 16:00 Vivian Moody DO is Private Physician. mr 16:19 Triage completed. hj 16:21 Arm band placed on right wrist. hj 16:21 Patient has correct armband on for positive identification. Bed in low position. Call light in reach. Side rails up X 1. Adult w/ patient. 16:29 Cooper Khalil PA is PHCP. jr8 16:29 Olivier Mirza MD is Attending Physician. jr8 17:05 Lb Tan LVN is Primary Nurse. em 17:30 CT Head Brain wo Cont In Process Unspecified. EDMS 18:18 No provider procedures requiring assistance completed. Patient did not have IV access em during this emergency room visit. Administered Medications: 17:24 Drug: [place] 5 mg-325 mg 1 tabs Route: PO; em 18:15 Follow up: Response: No adverse reaction; Pain is decreased em 17:24 Drug: Robaxin 500 mg Route: PO; em 18:15 Follow up: Response: No adverse reaction; Pain is decreased em Outcome: 17:51 Discharge ordered by . wade 18:18 Discharged to home ambulatory. em 18:18 Condition: good 18:18 Discharge instructions given to patient, Instructed on discharge instructions, follow up and referral plans. medication usage, Demonstrated understanding of instructions, follow-up care, medications, Prescriptions given X 1. 18:21 Patient left the ED. em Signatures: Dispatcher [employer] EDDE Sarah Devlin mr Lb Tan LVN LVN em Peri Martinez RN RN Cooper Khalil PA PA jr8 Joaquin, Henry, RN RN hj Corrections: (The following items were deleted from the chart) 16:19 16:09 Presenting complaint: hj 16:24 16:21 Pulse 89bpm; Resp 18bpm; Pulse Ox 96% RA; Temp 98.1F Oral; 59.42 kg; Height 5 ft. hj 0 in.; BMI: 25.0; Pain 10/10; hj
[2018-10-28 18:40] VITALS: TEMP 98.1
[2018-10-28 18:41] VITALS: BP 138/68; O2SAT 95
== END 2018-10-28 18:21 | disposition home or self-care (01) ==
LOC: ER 15:56
DX: M62.838 Other muscle spasm (principal); I12.0 Hypertensive chronic kidney disease with stage 5 chronic kidney disease or end stage renal disease; E11.22 Type 2 diabetes mellitus with diabetic chronic kidney disease; N18.6 End stage renal disease; Z85.46 Personal history of malignant neoplasm of prostate; Z99.2 Dependence on renal dialysis; Z90.79 Acquired absence of other genital organ(s)
CPT/HCPCS: 70450; 99283